=== PATIENT | male | born 1960 | race Caucasian/White ===

== ENCOUNTER 2023-06-06 11:02 | Inpatient (IN) | payer OTHER, SELFPAY ==
--- NOTE | ~2023-06-06 | US_ITS ---
EXAMINATION: US VENOUS ULTRASOUND WITH DOPPLER LOWER EXTREMITY, LEFT CLINICAL INFORMATION: Left leg pain COMPARISON: None available. TECHNIQUE: Ultrasound of the deep veins is performed from the hip to the calf with compression sonography and color and pulse Doppler assessment. Spectral analysis with color-flow imaging is performed. FINDINGS: There is normal venous compression and respiratory variation. The visualized common femoral vein, superficial femoral vein, profunda femoral vein, popliteal vein, and the trifurcation region shows no evidence of deep venous thrombosis. The contralateral common femoral vein demonstrates normal respiratory variation. US/US venous duplex LE LT IMPRESSION: No DVT demonstrated in the left lower extremity.
--- NOTE | ~2023-06-06 | CT_ITS ---
EXAMINATION: CT ABDOMEN AND PELVIS WITH CONTRAST CLINICAL INFORMATION: Large clot burden with question tumor COMPARISON: None available. TECHNIQUE: Multidetector volumetric images were obtained from the superior aspect of the liver through the pubic symphysis following administration 85 mL of Omnipaque 350 intravenous contrast. Sagittal and coronal reformatted images were obtained on the technologist's workstation. Oral contrast: No This CT examination was performed using dose optimization techniques as appropriate, variously including the following: *Automated exposure control *Adjustment of mA and/or kV according to patient size (this includes techniques or standardized protocols for targeted exams where dose is matched to indication/reason for exam; i.e. extremities or head) *Use of iterative reconstruction technique DLP: 588 mGy-cm FINDINGS: LUNG BASES: The visualized lung bases are unremarkable. LIVER, GALLBLADDER, AND BILIARY TREE: The liver is normal in size, shape, and attenuation. No focal hepatic lesion or biliary ductal dilatation is present. The gallbladder is unremarkable with no evidence of radiopaque gallstones, gallbladder wall thickening, or obvious pericholecystic inflammatory changes. PANCREAS: Unremarkable. SPLEEN: Unremarkable. ADRENAL GLANDS: Unremarkable. KIDNEYS AND URETERS: The kidneys are normal in size, shape, and attenuation. Bilateral nephrolithiasis is seen with multiple small stones in each kidney. There is mild hydronephrosis bilaterally with dilatation of both ureters. The bladder is distended and bladder outflow, I suspect is the issue related to the mild hydronephrosis. No perinephric stranding. BLADDER AND PROSTATE: The bladder is quite distended extending out of the pelvis to 7 cm below the umbilicus. A large amount of clot is present in the bladder. The prostate is enlarged. A question TURP defect is seen in the prostate. Seminal vesicles appear normal. GASTROINTESTINAL TRACT: The small and large bowel are unremarkable aside from colonic diverticula without diverticulitis. The appendix is not seen but there is no evidence of appendicitis evidence of appendicitis. ABDOMINAL WALL: No significant hernia is appreciated. LYMPH NODES: No retroperitoneal lymphadenopathy. VASCULAR: Calcific atherosclerotic changes are present in the aorta and iliofemoral vessels. There is no evidence of an abdominal aortic aneurysm. PELVIC VISCERA: An abnormal pelvic mass or free fluid is not seen. OSSEOUS STRUCTURES: Marked degenerative changes seen at L5-S1. No bony destructive lesions. CT/CT abdomen pelvis w IV con IMPRESSION: 1. Large amount of clot in the bladder with distended bladder and mild bilateral hydronephrosis. 2. Bilateral nonobstructing nephrolithiasis. 3. Other incidental findings as described above. Fleischner guidelines were followed.
[2023-06-06 11:16] VITALS: BP 149/57; PULSE 92; RESP 16; TEMP 36.7; O2SAT 96; BMI 25.8
--- NOTE | 2023-06-06 11:17 | ED_ITS ---
HPI - General Adult General Chief complaint: Urogenital-Male Stated complaint: blood in urine Time Seen by Provider: 06/06/23 17:21 Source: patient Mode of arrival: ambulatory History of Present Illness HPI narrative: 62-year-old male with history of muscular dystrophy presents with urinary retention. Patient noted difficulty urinating this morning, this was followed by red colored urine, then progressed to passing large clots. Patient denies preceding abdominal pain, nausea, vomiting or fever. Denies history of kidney stones. Denies trauma to his abdomen. Patient has not had prior episodes of retention. Related Data Allergies Allergy/AdvReac Type Severity Reaction Status Date / Time No Known Allergies Allergy Verified 06/06/23 11:25 Review of Systems 2 Review of Systems: Yes all other systems are reviewed and are negative [facility] Social History Social History Alcohol intake: current Alcohol intake frequency: a few times a month Smoked in Last 30 Days: No Use of substances other than those prescribed or required for medical reasons: No Advance Directives: No Advance Directives Information Provided: Yes Physical Exam ED Vital Signs: Vital Signs - 24 hr 06/06/23 11:16 06/06/23 18:28 06/06/23 18:29 Temperature 98.1 F 96.8 F Pulse Rate 92 82 Respiratory Rate 16 18 16 Blood Pressure 149/57 H 152/65 H Pulse Oximetry 96 97 Oxygen Delivery Method Room Air Room Air BMI result Body Mass Index 25.8 Const Other: Alert well in appearance Orientation/consciousness: patient oriented x3 Eyes Pupils: Equal, round and reactive pupils present Resp Other: Nonlabored respiration Cardio Other: Normal peripheral perfusion Skin General skin exam: no rashes or lesions noted Neuro General: patient oriented x3, no focal motor deficits and CN's II-XI intact bilaterally Cranial nerves: Yes Equal, round and reactive pupils present Extrem Other: Ambulates with a cane, antalgic gait Course Course Course Narrative: This is a rapid medical exam. Deferred additional HPI, ROS, PE to primary provider. 62 yo male with history of DM, muscular dystrophy here with bloody urine with clots since , some difficulty with going, dysuria. On ASA only. Followed by Urology in [facility]. Will obtain labs, UA VSS Reevaluation(s) Reevaluation #1: CT pending but patient accepted for admission to hospitalist service by Dr. Osito. Time: 19:53 Medications Administered Discontinued Medications Generic Name Dose Route Start Last Admin Trade Name Corrina PRN Reason Stop Dose Admin Iohexol 100 ml 06/06/23 18:48 06/06/23 18:48 Iohexol 350 Mg/Ml 100 Ml Infus..Btl IV 06/06/23 18:49 85 ml ONCE ONE Administration Lidocaine HCl 10 ml 06/06/23 19:04 06/06/23 19:20 Lidocaine Hcl 2 % Urojet 10 Ml Jel.Pf.An TOPICAL 06/06/23 19:05 10 ml ONCE ONE Administration Morphine Sulfate 4 mg 06/06/23 17:40 06/06/23 18:28 Morphine Sulfate 4 Mg/Ml Cartridge IVPUSH 06/06/23 17:41 4 mg ONCE ONE Administration Protocol Medical Decision Making Medical Decision Making MDM Narrative: 62-year-old male with history of muscular dystrophy presents with urinary retention. Patient noted difficulty urinating this morning, this was followed by red colored urine, then progressed to passing large clots. Patient denies preceding abdominal pain, nausea, vomiting or fever. Denies history of kidney stones. Denies trauma to his abdomen. Patient has not had prior episodes of retention. No relevant chronic issues History: Per patient I have considered the following differential diagnoses: Renal colic, urosepsis, UTI, bladder cancer Plan: Patient is in fact retaining urine per my bedside ultrasound. I can also see a significant clot burden. I am ordering CBI, and a CT scan. Screening labs are in process, including a urinalysis, his urine is not infected. His symptoms are not consistent with renal colic, I am most concerned that he has a mass in the bladder causing his symptoms. He likely require cystoscopy. I have independently reviewed the following tests: Labs: No leukocytosis, not anemic, no electrolyte abnormality, urine reveals hematuria, but no infection CT abdomen and pelvis: Pending at the time of sign-out Differential Diagnosis Renal colic, urosepsis, UTI, bladder cancer Admission/Observation Discussed with the patient that he will likely be admitted, the he require CBI, the ultimately he will require cystoscopy via Urology. Patient verbalizes understanding. Lab Data 06/06/23 11:42 06/06/23 11:42 Labs: Lab Results 06/06/23 06/06/23 Range/Units 11:42 11:43 WBC 8.0 (4.8-10.8) X10*3/uL RBC 4.12 L (4.60-5.80) X10*6/uL Hgb 12.2 L (14.0-18.0) g/dl Hct 37.6 L (42.0-52.0) % MCV 91.3 (80.0-98.0) fL MCH 29.6 (27.0-33.0) pg MCHC 32.4 (31.0-36.0) g/dl RDW 13.6 (11.0-16.0) % Plt Count 373 (160-400) X10*3/uL MPV 9.1 L (9.4-12.4) fL Immature Gran % (Auto) 0.3 (0.0-0.4) % Neut % (Auto) 60.5 (45-73) % Lymph % (Auto) 24.2 (20-40) % Wilkes % (Auto) 12.2 H (2-11) % Eos % (Auto) 1.3 (0-4) % Baso % (Auto) 1.5 (0-2) % Lymph # (Auto) 1.9 (1.2-4.9) X10*3/uL [place] # (Auto) 1.0 (0.1-1.2) X10*3/uL Eos # (Auto) 0.1 (0.0-0.4) X10*3/uL Baso # (Auto) 0.1 (0.0-0.2) X10*3/uL Abs Immat Gran (auto) 0.02 (0.00-0.03) X10*3/uL Absolute Neuts (auto) 4.8 (2.0-8.3) x10*3/uL Absolute Nucleated RBC 0.000 (0.0-0.012) X10*3/uL Nucleated RBC % (auto) 0.0 (0.0-0.2) /100WBC PT 12.2 (11.1-13.3) SEC INR 1.0 (0.9-1.1) Sodium 139 (135-145) mmol/L Potassium 4.8 (3.3-5.1) mmol/L Chloride 103 (96-108) mmol/L Carbon Dioxide 26 (22-29) mmol/L Anion Gap 15 (12-20) BUN 29 H (9-16) mg/dL Creatinine 0.77 (0.5-1.4) mg/dL Estim Creat Clear Calc 100.0 Estimated GFR > 60 Random Glucose 168 H (60-115) mg/dL Calcium 9.7 (8.4-10.2) mg/dL Total Bilirubin 0.5 (0.0-1.0) mg/dL Direct Bilirubin 0.3 (0.0-0.5) mg/dL AST 27 (5-37) U/L ALT 30 (0-40) U/L Alkaline Phosphatase 83 (39-117) U/L Total Protein 7.6 (6.5-8.0) g/dL Albumin 4.2 (3.5-5.0) g/dL Urine Color RED Urine Appearance Turbid Urine pH 7.0 (5.0-9.0) Ur Specific [place] 1.015 (1.005-1.025) Urine Protein See Note (Neg-Trace) mg/dL Urine Glucose (UA) See Note (Negative) mg/dL Urine Ketones See Note (Negative) mg/dL Urine Blood Large (3+) H (Negative) Urine Nitrite See Note (Negative) Ur Leukocyte Esterase See Note (Negative) Urine RBC >20 H (0-2) /HPF Urine WBC 0-5 (0-5) /HPF Ur Squamous Epith Cells 0-2 (0-2) /HPF Urine Bacteria None Seen (None Seen) Hyaline Casts 0-2 (0-2) /LPF Discharge Plan Discharge Patient Disposition: Admitted As Inpatient Print Language: Dominican
[2023-06-06 11:53] LABS: MANUAL DIFF FLAG NO
[2023-06-06 11:55] LABS: Basophils Absolute Auto 0.1 X10*3/uL (0.0-0.2); Basophils Percent Auto 1.5 % (0-2); Eosinophils Absolute Auto 0.1 X10*3/uL (0.0-0.4); Eosinophils Percent Auto 1.3 % (0-4); Hematocrit 37.6 % (42.0-52.0); Hemoglobin 12.2 g/dl (14.0-18.0); Imm Gran Abs Auto 0.02 X10*3/uL (0.00-0.03); Imm Gran Pct Auto 0.3 % (0.0-0.4); Lymphocytes Absolute Auto 1.9 X10*3/uL (1.2-4.9); Lymphocytes Percent Auto 24.2 % (20-40); Mean Corpuscular HGB Conc 32.4 g/dl (31.0-36.0); Mean Corpuscular Hemoglobin 29.6 pg (27.0-33.0); Mean Corpuscular Volume 91.3 fL (80.0-98.0); Mean Platelet Volume 9.1 fL (9.4-12.4); Monocytes Percent Auto 12.2 % (2-11); Neutrophils Absolute Auto 4.8 x10*3/uL (2.0-8.3); Neutrophils Percent Auto 60.5 % (45-73); Platelet Count 373 X10*3/uL (160-400); Red Blood Count 4.12 X10*6/uL (4.60-5.80); Red Cell Distribution Width 13.6 % (11.0-16.0)
[2023-06-06 11:56] LABS: Appearance Urine Turbid; Color Urine RED; Specific Gravity - Urine 1.015 (1.005-1.025); UMIC TRIGGER UACC YES; Urine Blood Large (3+) (Negative)
[2023-06-06 12:04] LABS: Prothrombin Time 12.2 SEC (11.1-13.3)
[2023-06-06 12:08] LABS: Alanine Aminotransferase 30 U/L (0-40); Albumin Level 4.2 g/dL (3.5-5.0); Alkaline Phosphatase 83 U/L (39-117); Anion Gap 15 (12-20); Aspartate Amino Transferase 27 U/L (5-37); Bilirubin Direct 0.3 mg/dL (0.0-0.5); Bilirubin Total 0.5 mg/dL (0.0-1.0); Blood Urea Nitrogen 29 mg/dL (9-16); Calcium 9.7 mg/dL (8.4-10.2); Carbon Dioxide 26 mmol/L (22-29); Chloride 103 mmol/L (96-108); Estimated Glomerular Filt Rate > 60; Glucose Random 168 mg/dL (60-115); Potassium 4.8 mmol/L (3.3-5.1); Sodium 139 mmol/L (135-145); Total Protein 7.6 g/dL (6.5-8.0)
[2023-06-06 12:09] LABS: Bacteria Urine None Seen (None Seen); Hyaline Casts Urine 0-2 /LPF (0-2); RBC Urine >20 /HPF (0-2); Squamous Epithelial Cell Urine 0-2 /HPF (0-2); WBC Urine 0-5 /HPF (0-5)
[2023-06-06 18:28] VITALS: RESP 18
[2023-06-06] MEDS: Morphine Sulfate 4 MG/ML CARTRIDGE IVPUSH (18:28)
[2023-06-06 18:29] VITALS: BP 152/65; PULSE 82; RESP 16; TEMP 36; O2SAT 97
[2023-06-06] MEDS: iohexoL 350 MG/ML 100 ML INFUS..BTL IV (18:48)
[2023-06-06] MEDS: Lidocaine HCl 2 % Urojet 10 ML JEL.PF.APP TOPICAL (19:20)
--- NOTE | 2023-06-06 20:28 | PM.IMHP ---
History of Present Illness Date of Service: 06/06/23 Attending physician on admission: Gume Mcneill Chief Complaint: hematuria 62-year-old male with history of hypertension, hyperlipidemia, peripheral artery disease on dual antiplatelet therapy, type 1 diabetes, CKD stage 2, facial/scapular muscular dystrophy presented to the ED earlier today for evaluation of hematuria. He reports for the past 4 days has been experiencing ?cranberry juice? colored urine that had initially tapered off on Tuesday but then recurred Tuesday morning. This morning reports large clots of blood while urinating with limited urine output. He has reported suprapubic pressure, dysuria but denies any nausea, vomiting, flank pain. He denies history of similar symptoms. He has been compliant with both aspirin and Plavix but is not on any other anticoagulation. On arrival, vital signs stable. Hematology studies significant for a mild normocytic anemia with H/H 12.2/37.6%. Renal function normal, electrolyte levels normal. Urinalysis significant for 3+ blood, otherwise unremarkable. CT abdomen/pelvis pending. In the ED, placed on CBI now with fruit punch colored output. Ouput with catheter placement, 1L. Also given iv morphine for pain. Patient will be admitted for further management of gross hematuria. He has a very remote cigarette smoker with 5 pack-year history. Review of Systems Review of Systems: General: No fevers, malaise, unintentional weight loss HEENT: No blurred vision, diplopia. No sore throat, nasal congestion, rhinorrhea, sinus pain, ear pain Cardiovascular: No chest pain, palpitations, or leg edema Respiratory: No shortness of breath, wheezing, cough GI: No abdominal pain, nausea, vomiting, diarrhea, constipation, melena, hematochezia : +hematuria, +decreased urinary output, +dysuria. No increased urinary frequency MSK: No myalgia, back pain Neuro: No headaches, weakness, paresthesias Skin: No rashes or lesions [facility] Medical History Peripheral arterial disease Peripheral neuropathy Type 1 diabetes 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 Hypertension Muscular dystrophy Social History Alcohol intake: current Alcohol intake frequency: a few times a month Smoked in Last 30 Days: No Use of substances other than those prescribed or required for medical reasons: No Advance Directives: No Advance Directives Information Provided: Yes Meds Allergies Allergy/AdvReac Type Severity Reaction Status Date / Time No Known Allergies Allergy Verified 06/06/23 11:25 Active Medications: Current Medications Acetaminophen (Acetaminophen 325 Mg Tablet) 650 mg PO Q6H PRN PRN Reason: Pain, Mild (Pain Scale 1-3) Glucose (Glucose Gel 15 Gm Gel..Gram.) 15 gm PO Q15M PRN; Protocol PRN Reason: per Hypoglycemia Standing Ord. Dextrose (D10) 250 mls @ 750 mls/hr IV Q15M PRN; Protocol PRN Reason: per Hypoglycemia Standing Ord. Insulin Glargine (Insulin Glargine,Hum.Rec.Anlog 100 Unit/Ml 10 Ml Vial) 15 unit SUBCUT BID SANDY Insulin Human Lispro (Insulin Lispro 100 Unit/Ml 3 Ml Vial) 0 unit SUBCUT QIDACHS SANDY; Protocol Ondansetron HCl (Ondansetron Hcl 4 Mg/2 Ml Vial) 4 mg IVPUSH Q8H PRN PRN Reason: Nausea and Vomiting Senna (Sennosides 8.6 Mg Tablet) 17.2 mg PO BEDTIME PRN PRN Reason: Constipation Sodium Chloride (0.9 % Sodium Chloride Flush 3 Ml Syringe) 3 ml IVFLUSH [place] Home Medications ?Medication ?Instructions ?Recorded ?Confirmed ?Last Taken ?Type amlodipine 10 mg tablet 10 mg PO DAILY 06/06/23 06/06/23 06/06/23 History ammonium lactate 12 % topical cream 1 appl topical BID PRN Dry Skin 06/06/23 06/06/23 Unknown History aspirin 81 mg tablet,delayed 81 mg PO DAILY 06/06/23 06/06/23 06/06/23 History release atorvastatin 20 mg tablet 20 mg PO DAILY 06/06/23 06/06/23 06/06/23 History clopidogrel 75 mg tablet 75 mg PO DAILY 06/06/23 06/06/23 06/06/23 History dorzolamide 22.3 mg-timolol 6.8 1 drp ophthalmic (eye) BID 06/06/23 06/06/23 06/06/23 History mg/mL eye drops gabapentin 800 mg tablet 800 mg PO QID 06/06/23 06/06/23 06/06/23 History insulin glargine 100 unit/mL (3 19 unit subcut DAILY 06/06/23 06/06/23 06/06/23 History mL) subcutaneous pen (Lantus Solostar U-100 Insulin) insulin glargine 100 unit/mL (3 22 unit subcut BEDTIME 06/06/23 06/06/23 06/05/23 History mL) subcutaneous pen (Lantus Solostar U-100 Insulin) insulin lispro 100 unit/mL 0 sliding scale dose subcut QIDACHS 06/06/23 06/06/23 06/06/23 History subcutaneous pen latanoprost 0.005 % eye drops 1 drp ophthalmic (eye) BEDTIME 06/06/23 06/06/23 06/05/23 History losartan 50 mg tablet 50 mg PO DAILY 06/06/23 06/06/23 06/06/23 History sildenafil 100 mg tablet 50 - 100 mg PO DAILY PRN Sexual 06/06/23 06/06/23 Unknown History Activity urea 20 % topical cream 1 appl topical DAILY 06/06/23 06/06/23 06/06/23 History Physical Exam Vital Signs and Narrative: Vital Signs: Last Vital Signs Temp 96.8 F 06/06/23 18:29 Pulse 82 06/06/23 18:29 Resp 16 06/06/23 18:29 BP 152/65 H 06/06/23 18:29 Pulse Ox 97 06/06/23 18:29 O2 Del Method Room Air 06/06/23 18:29 BMI result Body Mass Index 25.8 Constitutional - Awake and Alert, No apparent distress Eyes - PERRLA, EOMI Cardiovascular - S1S2, RRR, No edema Respiratory - Normal lung expansion, Normal respiratory effort, No respiratory distress, CTA bilaterally Gastrointestinal - NT / ND; +BS; No rebound or guarding - [address] way [address] with fruit punch colored output Extremities - no calf tenderness bilaterally, no swelling Skin - Warm/Dry Neurological - Alert & oriented x3 Psychological - Appropriate affect Results Labs 06/06/23 11:42 06/06/23 11:42 Labs: Laboratory Results - last 24 hr 06/06/23 06/06/23 11:42 11:43 MCV 91.3 MCH 29.6 MCHC 32.4 RDW 13.6 Plt Count 373 MPV 9.1 L Immature Gran % (Auto) 0.3 Neut % (Auto) 60.5 Lymph % (Auto) 24.2 [place] % (Auto) 12.2 H Eos % (Auto) 1.3 Baso % (Auto) 1.5 Lymph # (Auto) 1.9 [place] # (Auto) 1.0 Eos # (Auto) 0.1 Baso # (Auto) 0.1 Abs Immat Gran (auto) 0.02 Absolute Neuts (auto) 4.8 Absolute Nucleated RBC 0.000 Nucleated RBC % (auto) 0.0 PT 12.2 INR 1.0 Anion Gap 15 Estim Creat Clear Calc 100.0 Estimated GFR > 60 Random Glucose 168 H Calcium 9.7 Total Bilirubin 0.5 Direct Bilirubin 0.3 AST 27 ALT 30 Alkaline Phosphatase 83 Total Protein 7.6 Albumin 4.2 Urine Color RED Urine Appearance Turbid Urine pH 7.0 Ur Specific [place] 1.015 Urine Protein See Note Urine Glucose (UA) See Note Urine Ketones See Note Urine Blood Large (3+) H Urine Nitrite See Note Ur Leukocyte Esterase See Note Urine RBC >20 H Urine WBC 0-5 Ur Squamous Epith Cells 0-2 Urine Bacteria None Seen Hyaline Casts 0-2 Assessment and Plan (1) Hematuria: Status: Acute Plan 62-year-old male with history of hypertension, hyperlipidemia, peripheral artery disease on dual antiplatelet therapy, type 1 diabetes, CKD stage 2, facial/scapular muscular dystrophy admitted for further managment of gross hematuria #Gross hematuria -etiology unclear -ct abd pelvis pending -continue cbi -no significant anemia requiring transfusion -urology consult -follow h/h -hold dapt #Acute urinary retention -catheter placement drained 1 L urine -CT abdomen/pelvis pending -renal function baseline -urology consult -monitor I&O # normocytic anemia, unspecified chronicity -H/H above transfusion threshold -monitor H/H # insulin-dependent type 1 diabetes without hyperglycemia -POC glucose, diabetic diet -dose adjusted basal insulin -lispro and sliding scale # hypertension -continue amlodipine, losartan # PAD -hold aspirin, Plavix as above, continue statin # diabetic peripheral neuropathy -continue gabapentin # CKD stage 2 -renal function baseline DVT prophylaxis-Scps Full code Patient requires inpatient stay at least 2 midnights for management of gross hematuria with clots requiring continuous bladder irrigation, close monitoring of blood counts and expert consultation with probable cystoscopy to determine etiology of bleeding Quality Stroke Does the patient have a stroke diagnosis?: No VTE Prior VTE?: No VTE Risk Level:: Medical - moderate - high VTE Device Contraindication: N/A - Device Ordered VTE Drug Contraindication: Treatment Not Indicated
--- NOTE | 2023-06-06 20:33 | PHA.MEDREC ---
Pharmacy Consult ? Medication Reconciliation Pharmacy has completed the medication reconciliation. Patient's has list from provider's office. Patient and reported amlodipine and losartan dose were adjusted however they never made the adjustments yet. Still taking amlodpine 10 mg and losartan 50 mg instead of amlodipine 5 mg and losartan 100 mg. Patient using rapid acting insulin based on decom. Mariel Mcknight, PharmD
[2023-06-06 21:58] LABS: Glucose, Whole Blood 140 mg/dL (60-115)
[2023-06-06] MEDS: Gabapentin 400 MG CAPSULE 800 MG PO (22:04)
[2023-06-06] MEDS: Insulin Glargine,Hum.rec.anlog 100 UNIT/ML 10 ML VIAL 16 UNIT SUBCUT (22:04)
[2023-06-06] MEDS: Latanoprost 0.005 % Ophth Sol 2.5 ML DROPS 1 DROP EYE-BOTH (22:43)
[2023-06-06] MEDS: Dorzolamide/Timolo 2.23%/0.68% 10 ML DRBTL 1 DROP EYE-BOTH (22:43)
--- NOTE | 2023-06-06 23:11 | PC.NURSE ---
Pt with reports of discomfort and catheter not draining. Pts catheter irrigated x2. large amount of clots noted
[2023-06-06 23:29] VITALS: BP 121/46; PULSE 68; RESP 14; TEMP 36.8; O2SAT 93
--- NOTE | 2023-06-06 23:35 | PC.NURSE ---
pt dorzolamide/timolol and latanoprost eyedrops placed in patient specific bin in pyxis.
[2023-06-06] MEDS: 0.9 % Sodium Chloride Flush 3 ML SYRINGE IVFLUSH (23:39)
[2023-06-07] VITALS: BP 161/72; PULSE 66; RESP 18; TEMP 36.1; O2SAT 99
--- NOTE | 2023-06-07 01:13 | PC.NURSE ---
Pt manually irrigated, small amount of clot recovered. drainage bag emptied.
--- NOTE | 2023-06-07 02:14 | HO.SKINPHOTO ---
Location: left lateral ankle Category:ulceration Stage: Length: Width: Depth: cm Location: Category: Stage: Length: Width: Depth: cm Location: Category: Stage: Length: Width: Depth: cm Location: Category: Stage: Length: Width: Depth: cm Location: Category: Stage: Length: Width: Depth: cm Location: Category: Stage: Length: Width: Depth: cm
--- NOTE | 2023-06-07 02:15 | HO.SKINPHOTO ---
Location:left great toe Category:ingrown toe-nail repair site Stage: Length: Width: Depth: cm Location: Category: Stage: Length: Width: Depth: cm Location: Category: Stage: Length: Width: Depth: cm Location: Category: Stage: Length: Width: Depth: cm Location: Category: Stage: Length: Width: Depth: cm Location: Category: Stage: Length: Width: Depth: cm
[2023-06-07] MEDS: Morphine Sulfate 4 MG/ML CARTRIDGE IVPUSH (04:37)
[2023-06-07 05:53] LABS: MANUAL DIFF FLAG NO
[2023-06-07 05:59] LABS: Basophils Absolute Auto 0.1 X10*3/uL (0.0-0.2); Eosinophils Absolute Auto 0.2 X10*3/uL (0.0-0.4); Eosinophils Percent Auto 1.5 % (0-4); Hemoglobin 10.4 g/dl (14.0-18.0); Imm Gran Abs Auto 0.06 X10*3/uL (0.00-0.03); Imm Gran Pct Auto 0.5 % (0.0-0.4); Lymphocytes Percent Auto 7.9 % (20-40); Mean Corpuscular HGB Conc 32.5 g/dl (31.0-36.0); Mean Corpuscular Volume 92.2 fL (80.0-98.0); Mean Platelet Volume 9.5 fL (9.4-12.4); Monocytes Absolute Auto 1.1 X10*3/uL (0.1-1.2); Monocytes Percent Auto 8.1 % (2-11); Neutrophils Absolute Auto 10.6 x10*3/uL (2.0-8.3); Platelet Count 334 X10*3/uL (160-400); Red Blood Count 3.47 X10*6/uL (4.60-5.80); Red Cell Distribution Width 13.9 % (11.0-16.0); White Blood Count 13.1 X10*3/uL (4.8-10.8)
[2023-06-07] MEDS: ondansetron HCL 4 MG/2 ML VIAL IVPUSH (06:08)
[2023-06-07 06:27] LABS: Anion Gap 13 (12-20); Blood Urea Nitrogen 28 mg/dL (9-16); Calcium 9.1 mg/dL (8.4-10.2); Carbon Dioxide 26 mmol/L (22-29); Chloride 108 mmol/L (96-108); Creatinine Clr Calc Pharmacy 102.7; Estimated Glomerular Filt Rate > 60; Glucose Random 154 mg/dL (60-115); Potassium 4.8 mmol/L (3.3-5.1); Sodium 142 mmol/L (135-145)
[2023-06-07 06:50] VITALS: BP 125/60; PULSE 73; RESP 16; TEMP 36; O2SAT 99
[2023-06-07 07:01] LABS: Glucose, Whole Blood 133 mg/dL (60-115)
[2023-06-07 08:13] VITALS: BP 125/60
[2023-06-07] MEDS: Insulin Glargine,Hum.rec.anlog 100 UNIT/ML 10 ML VIAL 15 UNIT SUBCUT (08:13)
[2023-06-07] MEDS: Atorvastatin Calcium 20 MG TABLET PO (08:13)
[2023-06-07] MEDS: amLODIPine Besylate 10 MG TABLET PO (08:13)
[2023-06-07] MEDS: Losartan Potassium 50 MG TABLET PO (08:13)
[2023-06-07] MEDS: Gabapentin 400 MG CAPSULE 800 MG PO ×4 (08:13→20:39)
[2023-06-07] MEDS: 0.9 % Sodium Chloride Flush 3 ML SYRINGE IVFLUSH ×3 (08:23→23:32)
--- NOTE | 2023-06-07 09:15 | P.CNUR_ITS ---
History of Present Illness Consult details Consult date: 06/07/23 Narrative: CC: Gross Hematuria 62-year-old male Presents to hospital with 2 day history of progressively worsening gross hematuria Insulin-dependent diabetic Sullivan catheter placed for bladder irrigation Admitting medications include clopidogrel and aspirin No prior history of smoking and were placed chemical exposures Recommend continued CBI for 72 hours given clopidogrel usage. Hold clopidogrel Will need cystoscopy as outpatient Hematuria high probability course by dual antiplatelet therapy Review of Systems 2 Constitutional: Constitutional: Reports as per HPI and Reports no additional constitutional complaints Cardiovascular: Cardiovascular: Reports as per HPI and Reports no additional cardiovascular complaints Respiratory: Respiratory: Reports as per HPI and Reports no additional respiratory complaints Gastrointestinal: Gastrointestinal: Reports as per HPI and Reports no additional gastrointestinal complaints Genitourinary: Genitourinary: Reports as per HPI Musculoskeletal: Musculoskeletal: Reports no additional musculoskeletal complaints and Reports as per HPI Neurologic: Reports system reviewed and no additional complaints, except as documented and Reports as per HPI PMFSH Past Medical History Medical History Peripheral arterial disease Peripheral neuropathy Type 1 diabetes 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 Hypertension Muscular dystrophy Social History Social History Household Members: Spouse Housing: House Do you presently have visiting nurse or other home services: No Alcohol intake: current Alcohol intake frequency: a few times a month Patient Tobacco Use Status: Former Tobacco user service: No Meds Allergies Allergy/AdvReac Type Severity Reaction Status Date / Time No Known Allergies Allergy Verified 06/06/23 11:25 Active Medications: Current Medications Acetaminophen (Acetaminophen 325 Mg Tablet) 650 mg PO Q6H PRN PRN Reason: Pain, Mild (Pain Scale 1-3) Amlodipine Besylate (Amlodipine Besylate 10 Mg Tablet) 10 mg PO DAILY [facility]; Protocol Last Admin: 06/07/23 08:13 Dose: 10 mg Atorvastatin Calcium (Atorvastatin Calcium 20 Mg Tablet) 20 mg PO DAILY [facility] Last Admin: 06/07/23 08:13 Dose: 20 mg Dorzolamide/Timolol (Dorzolamide/Timolo 2.23%/0.68% 10 Ml Drbtl) 1 drop EYE- BOTH BID [facility] Last Admin: 06/06/23 22:43 Dose: 1 drop Gabapentin (Gabapentin 400 Mg Capsule) 800 mg PO QID [facility] Last Admin: 06/07/23 08:13 Dose: 800 mg Glucose (Glucose Gel 15 Gm Gel..Gram.) 15 gm PO Q15M PRN; Protocol PRN Reason: per Hypoglycemia Standing Ord. Dextrose (D10) 250 mls @ 750 mls/hr IV Q15M PRN; Protocol PRN Reason: per Hypoglycemia Standing Ord. Insulin Glargine (Insulin Glargine,Hum.Rec.Anlog 100 Unit/Ml 10 Ml Vial) 15 unit SUBCUT DAILY [facility] Last Admin: 06/07/23 08:13 Dose: 15 unit Insulin Glargine (Insulin Glargine,Hum.Rec.Anlog 100 Unit/Ml 10 Ml Vial) 16 unit SUBCUT BEDTIME [facility] Last Admin: 06/06/23 22:04 Dose: 16 unit Insulin Human Lispro (Insulin Lispro 100 Unit/Ml 3 Ml Vial) 0 unit SUBCUT QIDACHS [facility]; Protocol Last Admin: 06/07/23 07:13 Dose: Not Given Lactic Acid (Ammonium Lactate 12 % Cream 140 Gm Tube) 1 appl TOPICAL BID PRN; Protocol PRN Reason: Dry Skin Latanoprost (Latanoprost 0.005 % Ophth Berenice 2.5 Ml Drops) 1 drop EYE-BOTH BEDTIME [facility] Last Admin: 06/06/23 22:43 Dose: 1 drop Losartan Potassium (Losartan Potassium 50 Mg Tablet) 50 mg PO DAILY [facility]; Protocol Last Admin: 06/07/23 08:13 Dose: 50 mg Ondansetron HCl (Ondansetron Hcl 4 Mg/2 Ml Vial) 4 mg IVPUSH Q8H PRN PRN Reason: Nausea and Vomiting Last Admin: 06/07/23 06:08 Dose: 4 mg Senna (Sennosides 8.6 Mg Tablet) 17.2 mg PO BEDTIME PRN PRN Reason: Constipation Sodium Chloride (0.9 % Sodium Chloride Flush 3 Ml Syringe) 3 ml IVFLUSH QSHICHI [facility] Last Admin: 06/07/23 08:23 Dose: 3 ml Home Medications ?Medication ?Instructions ?Recorded ?Confirmed ?Last Taken ?Type amlodipine 10 mg tablet 10 mg PO DAILY 06/06/23 06/06/23 06/06/23 History ammonium lactate 12 % topical cream 1 appl topical BID PRN Dry Skin 06/06/23 06/06/23 Unknown History aspirin 81 mg tablet,delayed 81 mg PO DAILY 06/06/23 06/06/23 06/06/23 History release atorvastatin 20 mg tablet 20 mg PO DAILY 06/06/23 06/06/23 06/06/23 History clopidogrel 75 mg tablet 75 mg PO DAILY 06/06/23 06/06/23 06/06/23 History dorzolamide 22.3 mg-timolol 6.8 1 drp ophthalmic (eye) BID 06/06/23 06/06/23 06/06/23 History mg/mL eye drops gabapentin 800 mg tablet 800 mg PO QID 06/06/23 06/06/23 06/06/23 History insulin glargine 100 unit/mL (3 19 unit subcut DAILY 06/06/23 06/06/23 06/06/23 History mL) subcutaneous pen (Lantus Solostar U-100 Insulin) insulin glargine 100 unit/mL (3 22 unit subcut BEDTIME 06/06/23 06/06/23 06/05/23 History mL) subcutaneous pen (Lantus Solostar U-100 Insulin) insulin lispro 100 unit/mL 0 sliding scale dose subcut QIDACHS 06/06/23 06/06/23 06/06/23 History subcutaneous pen latanoprost 0.005 % eye drops 1 drp ophthalmic (eye) BEDTIME 06/06/23 06/06/23 06/05/23 History losartan 50 mg tablet 50 mg PO DAILY 06/06/23 06/06/23 06/06/23 History sildenafil 100 mg tablet 50 - 100 mg PO DAILY PRN Sexual 06/06/23 06/06/23 Unknown History Activity urea 20 % topical cream 1 appl topical DAILY 06/06/23 06/06/23 06/06/23 History Physical Exam 2 Vital Signs: Vital Signs: Last Vital Signs Temp 96.8 F 06/07/23 06:50 Pulse 73 06/07/23 06:50 Resp 16 06/07/23 06:50 BP 125/60 06/07/23 08:13 Pulse Ox 99 06/07/23 06:50 O2 Del Method Room Air 06/07/23 06:50 BMI result Body Mass Index 25.8 Const: General: cooperative, healthy appearing, comfortable and no acute distress Orientation/consciousness: patient oriented x3 HEENT: Face and sinus: Yes normal facial exam Mouth: moist mucous membranes Neck: Neck: Yes normal visual inspection, Yes full ROM and Yes trachea midline Chest: Chest palpation & inspection: normal inspection of the chest Resp: Effort & Inspection: normal respiratory effort, able to speak in complete sentences and no respiratory distress GI: Inspection: Yes normal to inspection Back/Spine/Pelvis: Cervical Spine: normal cervical lordosis Thoracic/Lumbar Spine: thoracic and lumbar spine normal to inspection Skin: General skin exam: no rashes or lesions noted Neuro: General: patient oriented x3, tone normal and moves all extremities Extrem: General: Yes normal to inspection and Yes capillary refill normal Results Labs 06/09/23 05:50 06/08/23 05:52 Labs: Abnormal lab results 06/06/23 06/06/23 06/06/23 Range/Units 11:42 11:43 21:53 WBC (4.8-10.8) X10*3/uL RBC 4.12 L (4.60-5.80) X10*6/uL Hgb 12.2 L (14.0-18.0) g/dl Hct 37.6 L (42.0-52.0) % MPV 9.1 L (9.4-12.4) fL Immature Gran % (Auto) (0.0-0.4) % Neut % (Auto) (45-73) % Lymph % (Auto) (20-40) % [place] % (Auto) 12.2 H (2-11) % Lymph # (Auto) (1.2-4.9) X10*3/uL Abs Immat Gran (auto) (0.00-0.03) X10*3/uL Absolute Neuts (auto) (2.0-8.3) x10*3/uL BUN 29 H (9-16) mg/dL POC Glucose 140 H (60-115) mg/dL Random Glucose 168 H (60-115) mg/dL Urine Blood Large (3+) H (Negative) Urine RBC >20 H (0-2) /HPF 06/07/23 06/07/23 Range/Units 05:37 06:49 WBC 13.1 H (4.8-10.8) X10*3/uL RBC 3.47 L (4.60-5.80) X10*6/uL Hgb 10.4 L (14.0-18.0) g/dl Hct 32.0 L (42.0-52.0) % MPV (9.4-12.4) fL Immature Gran % (Auto) 0.5 H (0.0-0.4) % Neut % (Auto) 81.0 H (45-73) % Lymph % (Auto) 7.9 L (20-40) % [place] % (Auto) (2-11) % Lymph # (Auto) 1.0 L (1.2-4.9) X10*3/uL Abs Immat Gran (auto) 0.06 H (0.00-0.03) X10*3/uL Absolute Neuts (auto) 10.6 H (2.0-8.3) x10*3/uL BUN 28 H (9-16) mg/dL POC Glucose 133 H (60-115) mg/dL Random Glucose 154 H (60-115) mg/dL Urine Blood (Negative) Urine RBC (0-2) /HPF Short CBC 06/06/23 06/07/23 Range/Units 11:42 05:37 WBC 8.0 13.1 H (4.8-10.8) X10*3/uL Hgb 12.2 L 10.4 L (14.0-18.0) g/dl Hct 37.6 L 32.0 L (42.0-52.0) % Plt Count 373 334 (160-400) X10*3/uL BMP 06/06/23 06/07/23 11:42 05:37 Sodium 139 142 Potassium 4.8 4.8 Chloride 103 108 Carbon Dioxide 26 26 BUN 29 H 28 H Creatinine 0.77 0.75 Calcium 9.7 9.1 D Liver Function 06/06/23 Range/Units 11:42 Total Bilirubin 0.5 (0.0-1.0) mg/dL Direct Bilirubin 0.3 (0.0-0.5) mg/dL AST 27 (5-37) U/L ALT 30 (0-40) U/L Alkaline Phosphatase 83 (39-117) U/L Albumin 4.2 (3.5-5.0) g/dL Urine 06/06/23 Range/Units 11:43 Urine Color RED Urine Appearance Turbid Urine pH 7.0 (5.0-9.0) Ur Specific Jackson 1.015 (1.005-1.025) Urine Protein See Note (Neg-Trace) mg/dL Urine Glucose (UA) See Note (Negative) mg/dL All other labs normal. Assessment and Plan (1) Hematuria: Status: Acute Plan Plan for outpatient cystoscopy Procedures Date of Service Date of Service: 06/09/23
--- NOTE | 2023-06-07 09:30 | P.PNIM_ITS ---
Subjective Subjective Date of Service: 06/07/23 Interval History: Continues to have hematuria. Patient is on CBI. Complaining of left leg discomfort Physical Exam 2 Vital Signs: Vital Signs: Last Vital Signs Temp 96.8 F 06/07/23 06:50 Pulse 73 06/07/23 06:50 Resp 16 06/07/23 06:50 BP 125/60 06/07/23 08:13 Pulse Ox 99 06/07/23 06:50 O2 Del Method Room Air 06/07/23 06:50 BMI result Body Mass Index 25.8 Constitutional - Awake and Alert, No apparent distress Eyes - PERRLA, EOMI Cardiovascular - S1S2, RRR, No edema Respiratory - Normal lung expansion, Normal respiratory effort, No respiratory distress, CTA bilaterally Gastrointestinal - NT / ND; +BS; No rebound or guarding - [address] way [address] with fruit punch colored output Extremities - no calf tenderness bilaterally, no swelling Skin - Warm/Dry Neurological - Alert & oriented x3 Psychological - Appropriate affect Objective Data Active Medications Acetaminophen (Acetaminophen 325 Mg Tablet) 650 mg PO Q6H PRN PRN Reason: Pain, Mild (Pain Scale 1-3) Amlodipine Besylate (Amlodipine Besylate 10 Mg Tablet) 10 mg PO DAILY [facility]; Protocol Last Admin: 06/07/23 08:13 Dose: 10 mg Documented By: NAKUL Atorvastatin Calcium (Atorvastatin Calcium 20 Mg Tablet) 20 mg PO DAILY [facility] Last Admin: 06/07/23 08:13 Dose: 20 mg Documented By: NAKUL Dorzolamide/Timolol (Dorzolamide/Timolo 2.23%/0.68% 10 Ml Drbtl) 1 drop EYE- BOTH BID [facility] Last Admin: 06/06/23 22:43 Dose: 1 drop Documented By: MORE Gabapentin (Gabapentin 400 Mg Capsule) 800 mg PO QID [facility] Last Admin: 06/07/23 08:13 Dose: 800 mg Documented By: NAKUL Glucose (Glucose Gel 15 Gm Gel..Gram.) 15 gm PO Q15M PRN; Protocol PRN Reason: per Hypoglycemia Standing Ord. Dextrose (D10) 250 mls @ 750 mls/hr IV Q15M PRN; Protocol PRN Reason: per Hypoglycemia Standing Ord. Insulin Glargine (Insulin Glargine,Hum.Rec.Anlog 100 Unit/Ml 10 Ml Vial) 15 unit SUBCUT DAILY [facility] Last Admin: 06/07/23 08:13 Dose: 15 unit Documented By: NAKUL Insulin Glargine (Insulin Glargine,Hum.Rec.Anlog 100 Unit/Ml 10 Ml Vial) 16 unit SUBCUT BEDTIME [facility] Last Admin: 06/06/23 22:04 Dose: 16 unit Documented By: MORE Insulin Human Lispro (Insulin Lispro 100 Unit/Ml 3 Ml Vial) 0 unit SUBCUT QIDACHS [facility]; Protocol Last Admin: 06/07/23 07:13 Dose: Not Given Documented By: NAKUL Non-Admin Reason: No Insulin Coverage Lactic Acid (Ammonium Lactate 12 % Cream 140 Gm Tube) 1 appl TOPICAL BID PRN; Protocol PRN Reason: Dry Skin Latanoprost (Latanoprost 0.005 % Ophth Berenice 2.5 Ml Drops) 1 drop EYE-BOTH BEDTIME [facility] Last Admin: 06/06/23 22:43 Dose: 1 drop Documented By: MORE Losartan Potassium (Losartan Potassium 50 Mg Tablet) 50 mg PO DAILY [facility]; Protocol Last Admin: 06/07/23 08:13 Dose: 50 mg Documented By: NAKUL Ondansetron HCl (Ondansetron Hcl 4 Mg/2 Ml Vial) 4 mg IVPUSH Q8H PRN PRN Reason: Nausea and Vomiting Last Admin: 06/07/23 06:08 Dose: 4 mg Documented By: SHANNON Senna (Sennosides 8.6 Mg Tablet) 17.2 mg PO BEDTIME PRN PRN Reason: Constipation Sodium Chloride (0.9 % Sodium Chloride Flush 3 Ml Syringe) 3 ml IVFLUSH QSHIFT [facility] Last Admin: 06/07/23 08:23 Dose: 3 ml Documented By: NAKUL Labs 06/07/23 05:37 06/07/23 05:37 Labs: Laboratory Results - last 24 hr 06/06/23 06/06/23 06/06/23 11:42 11:43 21:53 MCV 91.3 MCH 29.6 MCHC 32.4 RDW 13.6 Plt Count 373 MPV 9.1 L Immature Gran % (Auto) 0.3 Neut % (Auto) 60.5 Lymph % (Auto) 24.2 Hardy % (Auto) 12.2 H Eos % (Auto) 1.3 Baso % (Auto) 1.5 Lymph # (Auto) 1.9 Hardy # (Auto) 1.0 Eos # (Auto) 0.1 Baso # (Auto) 0.1 Abs Immat Gran (auto) 0.02 Absolute Neuts (auto) 4.8 Absolute Nucleated RBC 0.000 Nucleated RBC % (auto) 0.0 PT 12.2 INR 1.0 Anion Gap 15 Estim Creat Clear Calc 100.0 Estimated GFR > 60 POC Glucose 140 H Random Glucose 168 H Calcium 9.7 Total Bilirubin 0.5 Direct Bilirubin 0.3 AST 27 ALT 30 Alkaline Phosphatase 83 Total Protein 7.6 Albumin 4.2 Urine Color RED Urine Appearance Turbid Urine pH 7.0 Ur Specific [place] 1.015 Urine Protein See Note Urine Glucose (UA) See Note Urine Ketones See Note Urine Blood Large (3+) H Urine Nitrite See Note Ur Leukocyte Esterase See Note Urine RBC >20 H Urine WBC 0-5 Ur Squamous Epith Cells 0-2 Urine Bacteria None Seen Hyaline Casts 0-2 06/07/23 06/07/23 05:37 06:49 MCV 92.2 MCH 30.0 MCHC 32.5 RDW 13.9 Plt Count 334 MPV 9.5 Immature Gran % (Auto) 0.5 H Neut % (Auto) 81.0 H Lymph % (Auto) 7.9 L Hardy % (Auto) 8.1 Eos % (Auto) 1.5 Baso % (Auto) 1.0 Lymph # (Auto) 1.0 L Hardy # (Auto) 1.1 Eos # (Auto) 0.2 Baso # (Auto) 0.1 Abs Immat Gran (auto) 0.06 H Absolute Neuts (auto) 10.6 H Absolute Nucleated RBC 0.000 Nucleated RBC % (auto) 0.0 PT INR Anion Gap 13 Estim Creat Clear Calc 102.7 Estimated GFR > 60 POC Glucose 133 H Random Glucose 154 H Calcium 9.1 D Total Bilirubin Direct Bilirubin AST ALT Alkaline Phosphatase Total Protein Albumin Urine Color Urine Appearance Urine pH Ur Specific [place] Urine Protein Urine Glucose (UA) Urine Ketones Urine Blood Urine Nitrite Ur Leukocyte Esterase Urine RBC Urine WBC Ur Squamous Epith Cells Urine Bacteria Hyaline Casts Assessment and Plan (1) Hematuria: Status: Acute Plan 62-year-old male with history of hypertension, hyperlipidemia, peripheral artery disease on dual antiplatelet therapy, type 1 diabetes, CKD stage 2, facial/scapular muscular dystrophy admitted for further managment of gross hematuria #. Gross hematuria with urinary retention -continue cbi, urology consult pending -follow h/h -hold dapt # Normocytic anemia, unspecified chronicity -H/H above transfusion threshold -monitor H/H # Insulin-dependent type 1 diabetes without hyperglycemia -POC glucose, diabetic diet -Adjusted basal insulin -lispro and sliding scale # hypertension -continue amlodipine, losartan # PAD -hold aspirin, Plavix as above, continue statin # diabetic peripheral neuropathy -continue gabapentin # CKD stage 2 -renal function baseline DVT prophylaxis-ScDs Full code Reason for continued hospitalization: Ongoing CBI for hematuria. Urology consult pending Quality Stroke Does the patient have a stroke diagnosis?: No VTE Prior VTE?: No VTE Risk Level:: Medical - moderate - high VTE Device Contraindication: N/A - Device Ordered VTE Drug Contraindication: Treatment Not Indicated
--- NOTE | 2023-06-07 10:40 | MHC.CM.PN ---
CM MET WITH PT AT BEDSIDE WITH SPOUSE. PT LIVES WITH SPOUSE AND IS INDEPENDENT. USES CANE PRN. DIABETIC SUPPLIES VIA [facility]. + HCP ON FILE, PCP DR. GARCIA AT [facility]. DP: HOME, NO SERVICES ANTICIPATED. OPEN TO [facility] IF RECOMMENDED, FIRST CHOICE [facility]. SPOUSE WILL TRANSPORT HOME. CM WWILL CONTINUE TO FOLLOW FOR ANY CHANGE IN DC PLAN/NEEDS.
[2023-06-07] MEDS: oxyCODONE HCl Immed Release 5 MG TABLET PO ×3 (10:42→21:53)
[2023-06-07 11:09] LABS: Glucose, Whole Blood 148 mg/dL (60-115)
--- NOTE | 2023-06-07 15:24 | HO.WOUND ---
Wound Consult: Initial 62yr old?Male admitted to [facility] on 06/06/23 - See progress notes and H&P for detailed history.? Wound consult placed for Left Lateral Ankle POA.? Patient agreeable to assessment and photo documentation.? Patient reports the wound has been treated in the past by his previous grain processor healed sine finding a new grain processor and reopened wound he reports he will continue to follow up outpatient with [employer] Dr. Johnson for continued care and treatment. He reports he has had the wound for over a year and the wound was healed for approximately 6 months. He reports he sleeps on his left side - we discussed foam dressings and the benefits of off loading and redistributing pressure - both he and his report they currently do not apply prevention measures but are will to - education provided. Left great toe noted for small abrasion patient reports from podiatry appointment with ingrown toenail. Hydrocolloid applied. Left Lateral Ankle Etiology: Chronic Diabetic wound Wound Bed: pink moist wound bed with thin yellow slough Drainage / Odor: small amount of serosang drainage noted on dressing Edges: ? rolled Sandra wound: ?Slight swelling noted - Tubigrip applied (patients from home) and hemosiderin staining noted - No Induration, Fluctuance or Warmth noted Pain: Pain reported Goals of Treatment: ? Durafiber AG - moisture management Recommendations: 1. Off Load all bony prominences with use of pillows and heel boots if needed.? Apply Preventative foams where needed. ? 2. Provide adequate and supplemental nutrition.? 3. Order low air loss mattress. 4. Maintain blood glucose levels per Providers order. 5. Left Great Toe - Cleanse with NS moist gauze, apply hydrocolloid dressing change every 3 days. 6. Left Lateral Ankle - Cleanse with NS Moist gauze, pat dry. Apply skin prep allow to dry. Apply cut to size durafiber AG cover with foam dressing change every 3 days. Re-consult wound care Nurse for wound deterioration or wound changes.
[2023-06-07 15:34] VITALS: BP 114/57; PULSE 71; RESP 16; TEMP 36.2; O2SAT 98
[2023-06-07 16:31] LABS: Glucose, Whole Blood 179 mg/dL (60-115)
[2023-06-07] MEDS: Insulin Lispro 100 UNIT/ML 3 ML VIAL SUBCUT (17:04)
[2023-06-07 19:33] VITALS: BP 134/63; PULSE 77; RESP 18; TEMP 36.5; O2SAT 95
[2023-06-07 20:15] LABS: Glucose, Whole Blood 145 mg/dL (60-115)
[2023-06-07] MEDS: Insulin Glargine,Hum.rec.anlog 100 UNIT/ML 10 ML VIAL 16 UNIT SUBCUT (20:39)
[2023-06-07] MEDS: Dorzolamide/Timolo 2.23%/0.68% 10 ML DRBTL 1 DROP EYE-BOTH (20:39)
[2023-06-07] MEDS: traMADoL HCL 50 MG TABLET PO (20:40)
[2023-06-07] MEDS: Latanoprost 0.005 % Ophth Sol 2.5 ML DROPS 1 DROP EYE-BOTH (21:49)
--- NOTE | 2023-06-07 22:01 | PC.NURSE ---
Pt was in an extraordinary amount of pain after receiving oxy at 1830 and then a dose of Tramadol, pt was still at a level of 7 at 0, I administered oxycodone early for him to help alleviate his leg pain
[2023-06-07 23:35] VITALS: BP 113/57; PULSE 63; RESP 16; TEMP 36.5; O2SAT 92
[2023-06-08 06:50] LABS: Basophils Absolute Auto 0.1 X10*3/uL (0.0-0.2); Basophils Percent Auto 1.1 % (0-2); Eosinophils Absolute Auto 0.3 X10*3/uL (0.0-0.4); Eosinophils Percent Auto 2.9 % (0-4); Hematocrit 28.2 % (42.0-52.0); Imm Gran Abs Auto 0.04 X10*3/uL (0.00-0.03); Imm Gran Pct Auto 0.4 % (0.0-0.4); Lymphocytes Absolute Auto 1.8 X10*3/uL (1.2-4.9); Lymphocytes Percent Auto 17.4 % (20-40); MANUAL DIFF FLAG NO; Mean Corpuscular HGB Conc 31.9 g/dl (31.0-36.0); Mean Corpuscular Hemoglobin 29.8 pg (27.0-33.0); Mean Corpuscular Volume 93.4 fL (80.0-98.0); Mean Platelet Volume 9.9 fL (9.4-12.4); Monocytes Absolute Auto 1.5 X10*3/uL (0.1-1.2); Monocytes Percent Auto 14.7 % (2-11); Neutrophils Absolute Auto 6.5 x10*3/uL (2.0-8.3); Neutrophils Percent Auto 63.5 % (45-73); Platelet Count 323 X10*3/uL (160-400); Red Blood Count 3.02 X10*6/uL (4.60-5.80); Red Cell Distribution Width 13.5 % (11.0-16.0); White Blood Count 10.2 X10*3/uL (4.8-10.8)
[2023-06-08 06:51] LABS: Anion Gap 11 (12-20); Blood Urea Nitrogen 37 mg/dL (9-16); Calcium 8.7 mg/dL (8.4-10.2); Carbon Dioxide 26 mmol/L (22-29); Chloride 103 mmol/L (96-108); Creatinine Clr Calc Pharmacy 90.6; Estimated Glomerular Filt Rate > 60; Glucose Random 93 mg/dL (60-115); Potassium 4.4 mmol/L (3.3-5.1); Sodium 136 mmol/L (135-145)
[2023-06-08] MEDS: oxyCODONE HCl Immed Release 5 MG TABLET PO ×3 (07:05→21:40)
[2023-06-08] MEDS: 0.9 % Sodium Chloride Flush 3 ML SYRINGE IVFLUSH ×3 (07:06→22:00)
[2023-06-08] MEDS: Atorvastatin Calcium 20 MG TABLET PO (07:06)
[2023-06-08] MEDS: Gabapentin 400 MG CAPSULE 800 MG PO ×4 (07:06→21:40)
[2023-06-08] MEDS: Losartan Potassium 50 MG TABLET PO (07:06)
[2023-06-08 07:07] VITALS: BP 126/61; PULSE 64; RESP 12; TEMP 36.2; O2SAT 90
[2023-06-08] MEDS: amLODIPine Besylate 10 MG TABLET PO (07:07)
[2023-06-08 07:11] LABS: Glucose, Whole Blood 83 mg/dL (60-115)
[2023-06-08] MEDS: Dorzolamide/Timolo 2.23%/0.68% 10 ML DRBTL 1 DROP EYE-BOTH ×2 (08:28→21:44)
[2023-06-08] MEDS: Insulin Glargine,Hum.rec.anlog 100 UNIT/ML 10 ML VIAL 15 UNIT SUBCUT (08:28)
--- NOTE | 2023-06-08 08:31 | HO.PM.IMPN ---
Subjective Subjective Date of Service: 06/08/23 Interval History: Continues to have hematuria. Patient is on CBI. Improvement in left leg discomfort Review of Systems General: No fevers, malaise, unintentional weight loss HEENT: No blurred vision, diplopia. No sore throat, nasal congestion, rhinorrhea, sinus pain, ear pain Cardiovascular: No chest pain, palpitations, or leg edema Respiratory: No shortness of breath, wheezing, cough GI: No abdominal pain, nausea, vomiting, diarrhea, constipation, melena, hematochezia : +hematuria, +decreased urinary output, +dysuria. No increased urinary frequency MSK: No myalgia, back pain Neuro: No headaches, weakness, paresthesias Skin: No rashes or lesions Physical Exam Vital Signs: Vital Signs: Last Vital Signs Temp 97.2 F 06/08/23 07:07 Pulse 64 06/08/23 07:07 Resp 12 06/08/23 07:07 BP 126/61 06/08/23 07:07 Pulse Ox 90 L 06/08/23 07:07 O2 Del Method Room Air 06/08/23 07:07 BMI result Body Mass Index 25.8 Middle-aged male lying in bed in no distress Neck supple, no JVD Regular rate and rhythm, S1-S2 heard Regular breath sounds bilaterally, no wheezing or crackles appreciated Abdomen soft nontender, no guarding, no rigidity, Sullivan catheter with 3 way CBI with pinkish urine Patient is awake, alert and oriented to self, place, time and person ; no focal motor deficit Psych: Normal mood No pedal edema Objective Data Active Medications Acetaminophen (Acetaminophen 325 Mg Tablet) 650 mg PO Q6H PRN PRN Reason: Pain, Mild (Pain Scale 1-3) Amlodipine Besylate (Amlodipine Besylate 10 Mg Tablet) 10 mg PO DAILY [facility]; Protocol Last Admin: 06/08/23 07:07 Dose: 10 mg Documented By: JOSEPHINE Atorvastatin Calcium (Atorvastatin Calcium 20 Mg Tablet) 20 mg PO DAILY [facility] Last Admin: 06/08/23 07:06 Dose: 20 mg Documented By: JOSEPHINE Dorzolamide/Timolol (Dorzolamide/Timolo 2.23%/0.68% 10 Ml Drbtl) 1 drop EYE-BOTH BID [facility] Last Admin: 06/08/23 08:28 Dose: 1 drop Documented By: JOSEPHINE Gabapentin (Gabapentin 400 Mg Capsule) 800 mg PO QID [facility] Last Admin: 06/08/23 07:06 Dose: 800 mg Documented By: JOSEPHINE Glucose (Glucose Gel 15 Gm Gel..Gram.) 15 gm PO Q15M PRN; Protocol PRN Reason: per Hypoglycemia Standing Ord. Dextrose (D10) 250 mls @ 750 mls/hr IV Q15M PRN; Protocol PRN Reason: per Hypoglycemia Standing Ord. Insulin Glargine (Insulin Glargine,Hum.Rec.Anlog 100 Unit/Ml 10 Ml Vial) 15 unit SUBCUT DAILY [facility] Last Admin: 06/08/23 08:28 Dose: 15 unit Documented By: JOSEPHINE Insulin Glargine (Insulin Glargine,Hum.Rec.Anlog 100 Unit/Ml 10 Ml Vial) 16 unit SUBCUT BEDTIME [facility] Last Admin: 06/07/23 20:39 Dose: 16 unit Documented By: SHIELA Insulin Human Lispro (Insulin Lispro 100 Unit/Ml 3 Ml Vial) 0 unit SUBCUT QIDACHS [facility]; Protocol Last Admin: 06/08/23 07:06 Dose: Not Given Documented By: JOSEPHINE Non-Admin Reason: No Insulin Coverage Lactic Acid (Ammonium Lactate 12 % Cream 140 Gm Tube) 1 appl TOPICAL BID PRN; Protocol PRN Reason: Dry Skin Latanoprost (Latanoprost 0.005 % Ophth Berenice 2.5 Ml Drops) 1 drop EYE-BOTH BEDTIME [facility] Last Admin: 06/07/23 21:49 Dose: 1 drop Documented By: SHIELA Losartan Potassium (Losartan Potassium 50 Mg Tablet) 50 mg PO DAILY [facility]; Protocol Last Admin: 06/08/23 07:06 Dose: 50 mg Documented By: JOSEPHINE Melatonin (Melatonin 3 Mg Tablet) 6 mg PO BEDTIME PRN PRN Reason: Insomnia Ondansetron HCl (Ondansetron Hcl 4 Mg/2 Ml Vial) 4 mg IVPUSH Q8H PRN PRN Reason: Nausea and Vomiting Last Admin: 06/07/23 06:08 Dose: 4 mg Documented By: SHANNON Oxycodone HCl (Oxycodone Hcl Immed Release 5 Mg Tablet) 5 mg PO Q6H PRN PRN Reason: Pain, Severe (Pain Scale 7-10) Last Admin: 06/08/23 07:05 Dose: 5 mg Documented By: JOSEPHINE Senna (Sennosides 8.6 Mg Tablet) 17.2 mg PO BEDTIME PRN PRN Reason: Constipation Sodium Chloride (0.9 % Sodium Chloride Flush 3 Ml Syringe) 3 ml IVFLUSH QSHIFT [facility] Last Admin: 06/08/23 07:06 Dose: 3 ml Documented By: JOSEPHINE Tramadol HCl (Tramadol Hcl 50 Mg Tablet) 50 mg PO Q6H PRN PRN Reason: Pain, Moderate(Pain Scale 4-6) Last Admin: 06/07/23 20:40 Dose: 50 mg Documented By: RINAK Labs 06/08/23 05:52 06/08/23 05:52 Labs: Laboratory Results - last 24 hr 06/07/23 06/07/23 06/07/23 11:06 16:12 19:36 MCV MCH MCHC RDW Plt Count MPV Immature Gran % (Auto) Neut % (Auto) Lymph % (Auto) [place] % (Auto) Eos % (Auto) Baso % (Auto) Lymph # (Auto) [place] # (Auto) Eos # (Auto) Baso # (Auto) Abs Immat Gran (auto) Absolute Neuts (auto) Absolute Nucleated RBC Nucleated RBC % (auto) Anion Gap Estim Creat Clear Calc Estimated GFR POC Glucose 148 H 179 H 145 H Random Glucose Calcium 06/08/23 06/08/23 05:52 07:06 MCV 93.4 MCH 29.8 MCHC 31.9 RDW 13.5 Plt Count 323 MPV 9.9 Immature Gran % (Auto) 0.4 Neut % (Auto) 63.5 Lymph % (Auto) 17.4 L [place] % (Auto) 14.7 H Eos % (Auto) 2.9 Baso % (Auto) 1.1 Lymph # (Auto) 1.8 [place] # (Auto) 1.5 H Eos # (Auto) 0.3 Baso # (Auto) 0.1 Abs Immat Gran (auto) 0.04 H Absolute Neuts (auto) 6.5 Absolute Nucleated RBC 0.000 Nucleated RBC % (auto) 0.0 Anion Gap 11 L Estim Creat Clear Calc 90.6 Estimated GFR > 60 POC Glucose 83 Random Glucose 93 Calcium 8.7 Assessment and Plan (1) Hematuria: Status: Acute Plan 62-year-old male with history of hypertension, hyperlipidemia, peripheral artery disease on dual antiplatelet therapy, type 1 diabetes, CKD stage 2, facial/scapular muscular dystrophy admitted for further managment of gross hematuria #. Gross hematuria with urinary retention -continue cbi, urology consult pending -follow h/h -hold dapt # Normocytic anemia, unspecified chronicity -H/H above transfusion threshold -monitor H/H # Insulin-dependent type 1 diabetes without hyperglycemia -POC glucose, diabetic diet -Adjusted basal insulin -lispro and sliding scale # hypertension -continue amlodipine, losartan # PAD -hold aspirin, Plavix as above, continue statin # diabetic peripheral neuropathy -continue gabapentin # CKD stage 2 -renal function baseline DVT prophylaxis-ScDs Full code Reason for continued hospitalization: Ongoing CBI for hematuria. Urology consult pending Quality Stroke Does the patient have a stroke diagnosis?: No VTE Prior VTE?: No VTE Risk Level:: Medical - moderate - high VTE Device Contraindication: N/A - Device Ordered VTE Drug Contraindication: Treatment Not Indicated
[2023-06-08 11:05] LABS: Glucose, Whole Blood 129 mg/dL (60-115)
--- NOTE | 2023-06-08 13:29 | MHC.CM.PN ---
EMR REVIEWED AND PER MD ROUNDS, PT NOT MEDICALLY CLEARED FOR DC, CONTINUES WITH CBI/HEMATURIA. CM WILL CONTINUE TO FOLLOW FOR ANY CHANGE IN DC PLAN/NEEDS.
[2023-06-08 15:21] VITALS: BP 159/70; PULSE 81; RESP 18; TEMP 36.7; O2SAT 96
[2023-06-08 16:42] LABS: Glucose, Whole Blood 173 mg/dL (60-115)
[2023-06-08] MEDS: Insulin Lispro 100 UNIT/ML 3 ML VIAL SUBCUT ×2 (17:06→21:40)
[2023-06-08 19:44] VITALS: BP 150/68; PULSE 87; RESP 18; TEMP 36.9; O2SAT 94
[2023-06-08 21:32] LABS: Glucose, Whole Blood 175 mg/dL (60-115)
[2023-06-08] MEDS: Insulin Glargine,Hum.rec.anlog 100 UNIT/ML 10 ML VIAL 16 UNIT SUBCUT (21:40)
[2023-06-08] MEDS: Sennosides 8.6 MG TABLET 17.2 MG PO (21:43)
[2023-06-08] MEDS: Latanoprost 0.005 % Ophth Sol 2.5 ML DROPS 1 DROP EYE-BOTH (22:00)
[2023-06-09] VITALS: BP 131/63; PULSE 76; RESP 18; TEMP 37.7; O2SAT 93
[2023-06-09 06:44] LABS: MANUAL DIFF FLAG NO
[2023-06-09 06:48] LABS: Basophils Absolute Auto 0.1 X10*3/uL (0.0-0.2); Basophils Percent Auto 1.1 % (0-2); Eosinophils Absolute Auto 0.2 X10*3/uL (0.0-0.4); Eosinophils Percent Auto 1.8 % (0-4); Hematocrit 24.1 % (42.0-52.0); Hemoglobin 7.8 g/dl (14.0-18.0); Imm Gran Abs Auto 0.03 X10*3/uL (0.00-0.03); Imm Gran Pct Auto 0.3 % (0.0-0.4); Lymphocytes Percent Auto 31.3 % (20-40); Mean Corpuscular HGB Conc 32.4 g/dl (31.0-36.0); Mean Corpuscular Hemoglobin 30.1 pg (27.0-33.0); Mean Corpuscular Volume 93.1 fL (80.0-98.0); Mean Platelet Volume 9.8 fL (9.4-12.4); Monocytes Absolute Auto 1.4 X10*3/uL (0.1-1.2); Monocytes Percent Auto 14.9 % (2-11); Neutrophils Absolute Auto 4.8 x10*3/uL (2.0-8.3); Neutrophils Percent Auto 50.6 % (45-73); Platelet Count 294 X10*3/uL (160-400); Red Blood Count 2.59 X10*6/uL (4.60-5.80); Red Cell Distribution Width 13.5 % (11.0-16.0); White Blood Count 9.5 X10*3/uL (4.8-10.8)
[2023-06-09 07:11] VITALS: BP 135/62; PULSE 83; RESP 16; TEMP 36.1; O2SAT 94
[2023-06-09 07:16] LABS: Glucose, Whole Blood 106 mg/dL (60-115)
[2023-06-09] MEDS: Gabapentin 400 MG CAPSULE 800 MG PO ×4 (08:28→20:36)
[2023-06-09] MEDS: 0.9 % Sodium Chloride Flush 3 ML SYRINGE IVFLUSH ×3 (08:28→20:38)
[2023-06-09] MEDS: Losartan Potassium 50 MG TABLET PO (08:28)
[2023-06-09] MEDS: Atorvastatin Calcium 20 MG TABLET PO (08:28)
[2023-06-09] MEDS: amLODIPine Besylate 10 MG TABLET PO (08:28)
[2023-06-09] MEDS: Dorzolamide/Timolo 2.23%/0.68% 10 ML DRBTL 1 DROP EYE-BOTH ×2 (08:29→20:39)
[2023-06-09] MEDS: Insulin Glargine,Hum.rec.anlog 100 UNIT/ML 10 ML VIAL 15 UNIT SUBCUT (08:29)
--- NOTE | 2023-06-09 09:17 | P.PNIM_ITS ---
Subjective Subjective Date of Service: 06/09/23 Interval History: Continues to have hematuria. Was unable to tolerate clamping of CBI yesterday. Review of Systems General: No fevers, malaise, unintentional weight loss HEENT: No blurred vision, diplopia. No sore throat, nasal congestion, rhinorrhea, sinus pain, ear pain Cardiovascular: No chest pain, palpitations, or leg edema Respiratory: No shortness of breath, wheezing, cough GI: No abdominal pain, nausea, vomiting, diarrhea, constipation, melena, hematochezia : +hematuria, +decreased urinary output, +dysuria. No increased urinary frequency MSK: No myalgia, back pain Neuro: No headaches, weakness, paresthesias Skin: No rashes or lesions Review of Systems: Yes all other systems are reviewed and are negative Physical Exam 2 Vital Signs: Vital Signs: Last Vital Signs Temp 97 F 06/09/23 07:11 Pulse 83 06/09/23 07:11 Resp 16 06/09/23 07:11 BP 135/62 06/09/23 07:11 Pulse Ox 94 06/09/23 07:11 O2 Del Method Room Air 06/09/23 07:11 BMI result Body Mass Index 25.8 Middle-aged male lying in bed in no distress Neck supple, no JVD Regular rate and rhythm, S1-S2 heard Regular breath sounds bilaterally, no wheezing or crackles appreciated Abdomen soft nontender, no guarding, no rigidity, Sullivan catheter with 3 way CBI with pinkish urine Patient is awake, alert and oriented to self, place, time and person ; no focal motor deficit Psych: Normal mood No pedal edema Objective Data Active Medications Acetaminophen (Acetaminophen 325 Mg Tablet) 650 mg PO Q6H PRN PRN Reason: Pain, Mild (Pain Scale 1-3) Amlodipine Besylate (Amlodipine Besylate 10 Mg Tablet) 10 mg PO DAILY [facility]; Protocol Last Admin: 06/09/23 08:28 Dose: 10 mg Documented By: MAXIME Atorvastatin Calcium (Atorvastatin Calcium 20 Mg Tablet) 20 mg PO DAILY [facility] Last Admin: 06/09/23 08:28 Dose: 20 mg Documented By: MAXIME Dorzolamide/Timolol (Dorzolamide/Timolo 2.23%/0.68% 10 Ml Drbtl) 1 drop EYE- BOTH BID [facility] Last Admin: 06/09/23 08:29 Dose: 1 drop Documented By: MAXIME Gabapentin (Gabapentin 400 Mg Capsule) 800 mg PO QID [facility] Last Admin: 06/09/23 08:28 Dose: 800 mg Documented By: MAXIME Glucose (Glucose Gel 15 Gm Gel..Gram.) 15 gm PO Q15M PRN; Protocol PRN Reason: per Hypoglycemia Standing Ord. Dextrose (D10) 250 mls @ 750 mls/hr IV Q15M PRN; Protocol PRN Reason: per Hypoglycemia Standing Ord. Insulin Glargine (Insulin Glargine,Hum.Rec.Anlog 100 Unit/Ml 10 Ml Vial) 15 unit SUBCUT DAILY [facility] Last Admin: 06/09/23 08:29 Dose: 1 unit Documented By: MAXIME Insulin Glargine (Insulin Glargine,Hum.Rec.Anlog 100 Unit/Ml 10 Ml Vial) 16 unit SUBCUT BEDTIME [facility] Last Admin: 06/08/23 21:40 Dose: 16 unit Documented By: BALWINDER Insulin Human Lispro (Insulin Lispro 100 Unit/Ml 3 Ml Vial) 0 unit SUBCUT QIDACHS [facility]; Protocol Last Admin: 06/09/23 07:29 Dose: Not Given Documented By: MAXIME Non-Admin Reason: No Insulin Coverage Lactic Acid (Ammonium Lactate 12 % Cream 140 Gm Tube) 1 appl TOPICAL BID PRN; Protocol PRN Reason: Dry Skin Latanoprost (Latanoprost 0.005 % Ophth Berenice 2.5 Ml Drops) 1 drop EYE-BOTH BEDTIME [facility] Last Admin: 06/08/23 22:00 Dose: 1 drop Documented By: BALWINDER Losartan Potassium (Losartan Potassium 50 Mg Tablet) 50 mg PO DAILY [facility]; Protocol Last Admin: 06/09/23 08:28 Dose: 50 mg Documented By: MAXIME Melatonin (Melatonin 3 Mg Tablet) 6 mg PO BEDTIME PRN PRN Reason: Insomnia Ondansetron HCl (Ondansetron Hcl 4 Mg/2 Ml Vial) 4 mg IVPUSH Q8H PRN PRN Reason: Nausea and Vomiting Last Admin: 06/07/23 06:08 Dose: 4 mg Documented By: SHANNON Oxycodone HCl (Oxycodone Hcl Immed Release 5 Mg Tablet) 5 mg PO Q6H PRN PRN Reason: Pain, Severe (Pain Scale 7-10) Last Admin: 06/08/23 21:40 Dose: 5 mg Documented By: BALWINDER Senna (Sennosides 8.6 Mg Tablet) 17.2 mg PO BEDTIME PRN PRN Reason: Constipation Last Admin: 06/08/23 21:43 Dose: 17.2 mg Documented By: BALWINDER Sodium Chloride (0.9 % Sodium Chloride Flush 3 Ml Syringe) 3 ml IVFLUSH [facility] Last Admin: 06/09/23 08:28 Dose: 3 ml Documented By: MAXIME Tramadol HCl (Tramadol Hcl 50 Mg Tablet) 50 mg PO Q6H PRN PRN Reason: Pain, Moderate(Pain Scale 4-6) Last Admin: 06/07/23 20:40 Dose: 50 mg Documented By: SHIELA Labs 06/09/23 05:50 06/08/23 05:52 Labs: Laboratory Results - last 24 hr 06/08/23 06/08/23 06/08/23 10:47 16:32 21:28 MCV MCH MCHC RDW Plt Count MPV Immature Gran % (Auto) Neut % (Auto) Lymph % (Auto) [place] % (Auto) Eos % (Auto) Baso % (Auto) Lymph # (Auto) [place] # (Auto) Eos # (Auto) Baso # (Auto) Abs Immat Gran (auto) Absolute Neuts (auto) Absolute Nucleated RBC Nucleated RBC % (auto) POC Glucose 129 H 173 H 175 H 06/09/23 06/09/23 05:50 07:11 MCV 93.1 MCH 30.1 MCHC 32.4 RDW 13.5 Plt Count 294 MPV 9.8 Immature Gran % (Auto) 0.3 Neut % (Auto) 50.6 Lymph % (Auto) 31.3 [place] % (Auto) 14.9 H Eos % (Auto) 1.8 Baso % (Auto) 1.1 Lymph # (Auto) 3.0 [place] # (Auto) 1.4 H Eos # (Auto) 0.2 Baso # (Auto) 0.1 Abs Immat Gran (auto) 0.03 Absolute Neuts (auto) 4.8 Absolute Nucleated RBC 0.000 Nucleated RBC % (auto) 0.0 POC Glucose 106 Assessment and Plan (1) Hematuria: Status: Acute Plan 62-year-old male with history of hypertension, hyperlipidemia, peripheral artery disease on dual antiplatelet therapy, type 1 diabetes, CKD stage 2, facial/scapular muscular dystrophy admitted for further managment of gross hematuria #. Gross hematuria with urinary retention -continue cbi, urology appreciated -hold dapt # acute blood loss anemia in the setting of above -H/H above transfusion threshold -monitor H/H # Insulin-dependent type 1 diabetes without hyperglycemia -POC glucose, diabetic diet -Adjusted basal insulin -lispro and sliding scale # hypertension -continue amlodipine, losartan # PAD -hold aspirin, Plavix as above, continue statin # diabetic peripheral neuropathy -continue gabapentin # CKD stage 2 -renal function baseline DVT prophylaxis-ScDs Full code Reason for continued hospitalization: Ongoing CBI for hematuria. Urology appreciated Quality Stroke Does the patient have a stroke diagnosis?: No VTE Prior VTE?: No VTE Risk Level:: Medical - moderate - high VTE Device Contraindication: N/A - Device Ordered VTE Drug Contraindication: Treatment Not Indicated
[2023-06-09 11:20] LABS: Glucose, Whole Blood 172 mg/dL (60-115)
--- NOTE | 2023-06-09 11:28 | PC.NURSE ---
Addendum entered by Vivi Gaspar RN 06/09/23 18:28: MD Rg and MD Mcneill made aware pt voided 30ml of punch colored urine, pt bladder scanned for 300Ml. Pt refusing to let this RN replace FC at this time, wants to wait until 9PM . Pt denies pain at this time. Addendum entered by Vivi Gaspar RN 06/09/23 17:09: Pt able to void 50ml punch colored urine, then bladder scanned for 301ml. After scan pt able to void 25ml more punch colored urine. MD Rg notified, per MD if pt does not void again within 1 hour replace FC. Addendum entered by Vivi Gaspar RN 06/09/23 14:36: After 1 hour of CBI irrigation urine remains clear, per Dr. Rg remove FC. FC removed, pt tolerated well. C/o slight discomfort and burning with removal. Addendum entered by Vivi Gaspar RN 06/09/23 13:22: MD Rg at bedside to assess pt. At this time pt and voiced concerns and asked questions with this RN present. At this time Dr. Rg hand irrigated pts f/c multiple small clots expelled. CBI restarted, draining clear dark pink tinged urine. Original Note: Mr. Vaughn expressed concerns regarding the continuation of his hematuria. Pt states he has not seen Dr. Rg and would like to speak with him on this matter and come up with a plan to resolve this issue, pt inquiring about possible scope . Dr. Mcneill at beside to assess pt and listen to expressed concerns. [place] text including Charge nurse MD Osito Juarez, Patient Experience Guest Services Attendant Ranjana [place], and Dr. Rg send out at approximately 10:00. Per tiger text MD Rg will come to see Pt midday . Pt continues to require CBI, urine draining red with clots. Pt denies pain or spasms at this time.
--- NOTE | 2023-06-09 11:35 | PC.NURSE ---
MD Mcneill made aware pt had previously experienced pain in left groin down left leg a couple day ago . Pt states pain has since resolved, trace non-pitting edema noted in left ankle and foot. MD Mcneill ordered duplex scan. Pt aware of plan.
[2023-06-09] MEDS: Insulin Lispro 100 UNIT/ML 3 ML VIAL SUBCUT ×3 (11:56→20:37)
--- NOTE | 2023-06-09 13:50 | P.PNUR_ITS ---
Subjective Subjective Date of Service: 06/09/23 Interval history: Patient seen Low CBI Old clot irrigated out from bladder vigorously for 10 minutes Patient and had a number of questions regarding causes of hematuria Emphasized that use of anticoagulation particularly dual antiplatelet therapy is associated with high rates of gross hematuria particularly in the setting of BPH disease Bladder cancer would be a low probability given his other clinical conditions Outpatient cystoscopy recommended Physical Exam 2 Vital Signs: Vital Signs: Last Vital Signs Temp 97 F 06/09/23 07:11 Pulse 83 06/09/23 07:11 Resp 16 06/09/23 07:11 BP 135/62 06/09/23 07:11 Pulse Ox 94 06/09/23 07:11 O2 Del Method Room Air 06/09/23 07:11 BMI result Body Mass Index 25.8 Const: General: cooperative, healthy appearing, comfortable and no acute distress Orientation/consciousness: patient oriented x3 HEENT: Face and sinus: Yes normal facial exam Mouth: moist mucous membranes Neck: Neck: Yes normal visual inspection, Yes full ROM and Yes trachea midline Chest: Chest palpation & inspection: normal inspection of the chest Resp: Effort & Inspection: normal respiratory effort, able to speak in complete sentences and no respiratory distress GI: Inspection: Yes normal to inspection Back/Spine/Pelvis: Cervical Spine: normal cervical lordosis Thoracic/Lumbar Spine: thoracic and lumbar spine normal to inspection Skin: General skin exam: no rashes or lesions noted Neuro: General: patient oriented x3, tone normal and moves all extremities Extrem: General: Yes normal to inspection and Yes capillary refill normal Urology Results Labs 06/09/23 05:50 06/08/23 05:52 Labs: Laboratory Results - last 24 hr 06/08/23 06/08/23 06/09/23 16:32 21:28 05:50 WBC 9.5 RBC 2.59 L Hgb 7.8 L Hct 24.1 L MCV 93.1 MCH 30.1 MCHC 32.4 RDW 13.5 Plt Count 294 MPV 9.8 Immature Gran % (Auto) 0.3 Neut % (Auto) 50.6 Lymph % (Auto) 31.3 [place] % (Auto) 14.9 H Eos % (Auto) 1.8 Baso % (Auto) 1.1 Lymph # (Auto) 3.0 [place] # (Auto) 1.4 H Eos # (Auto) 0.2 Baso # (Auto) 0.1 Abs Immat Gran (auto) 0.03 Absolute Neuts (auto) 4.8 Absolute Nucleated RBC 0.000 Nucleated RBC % (auto) 0.0 POC Glucose 173 H 175 H 06/09/23 06/09/23 07:11 11:16 WBC RBC Hgb Hct MCV MCH MCHC RDW Plt Count MPV Immature Gran % (Auto) Neut % (Auto) Lymph % (Auto) [place] % (Auto) Eos % (Auto) Baso % (Auto) Lymph # (Auto) [place] # (Auto) Eos # (Auto) Baso # (Auto) Abs Immat Gran (auto) Absolute Neuts (auto) Absolute Nucleated RBC Nucleated RBC % (auto) POC Glucose 106 172 H Urology Procedures Other Procedure Other Procedure: Sullivan catheter disconnected from collection bag. Irrigation halted. Bladder irrigated for removal of significant clot. Approximately 10 minutes taken for full irrigation. The completion of irrigation catheter bag reattached. Irrigation restarted. Irrigation may be halted once collection bed free of clot for 12 hours. P.r.n. irrigation with 100 cc for clot Hematuria Bladder Irriation CPT 16341 Progress Note: A&P Assessment and plan (1) Hematuria: Status: Acute Plan Halt CBI and review in 1 hour for catheter removal Outpatient cystoscopy based on history of anticoagulation use Time Spent With Patient Time: Total time managing care of this patient today ____ minutes. Progress Note: Quality Stroke Does the patient have a stroke diagnosis?: No
[2023-06-09] MEDS: polyethylene glycoL 3350 17 GM POWD.PACK PO (14:43)
[2023-06-09] MEDS: Acetaminophen 325 MG TABLET 650 MG PO (14:43)
[2023-06-09] MEDS: oxyCODONE HCl Immed Release 5 MG TABLET PO ×2 (14:46→20:36)
[2023-06-09 15:02] VITALS: BP 132/66; PULSE 87; RESP 18; TEMP 36.3; O2SAT 93
[2023-06-09] MEDS: Phenazopyridine HCL 100 MG TABLET PO (15:23)
[2023-06-09 16:04] LABS: Glucose, Whole Blood 181 mg/dL (60-115)
[2023-06-09 19:08] VITALS: BP 148/69; PULSE 71; RESP 16; TEMP 36.7; O2SAT 93
[2023-06-09 19:48] LABS: Glucose, Whole Blood 169 mg/dL (60-115)
[2023-06-09] MEDS: Sennosides 8.6 MG TABLET 17.2 MG PO (20:36)
[2023-06-09] MEDS: Insulin Glargine,Hum.rec.anlog 100 UNIT/ML 10 ML VIAL 16 UNIT SUBCUT (20:37)
[2023-06-09] MEDS: Latanoprost 0.005 % Ophth Sol 2.5 ML DROPS 1 DROP EYE-BOTH (20:39)
--- NOTE | 2023-06-09 23:04 | MHC.PIE ---
p; pt urinating small amounts, bladder scanned for over 500. pt reluctant on aguilar placement, pt educated multiple times with good result i; aguilar placed per order by dr eller e; aguilar drained over 700 dark tez colored urine. will cont to monitor
[2023-06-10 06:09] LABS: Anion Gap 11 (12-20); Blood Urea Nitrogen 29 mg/dL (9-16); Carbon Dioxide 27 mmol/L (22-29); Chloride 106 mmol/L (96-108); Creatinine Clr Calc Pharmacy 120.3; Estimated Glomerular Filt Rate > 60; Glucose Random 98 mg/dL (60-115); Sodium 139 mmol/L (135-145)
[2023-06-10 06:24] LABS: Basophils Absolute Auto 0.1 X10*3/uL (0.0-0.2); Basophils Percent Auto 1.2 % (0-2); Eosinophils Absolute Auto 0.3 X10*3/uL (0.0-0.4); Eosinophils Percent Auto 3.1 % (0-4); Hematocrit 24.8 % (42.0-52.0); Hemoglobin 8.1 g/dl (14.0-18.0); Imm Gran Abs Auto 0.03 X10*3/uL (0.00-0.03); Imm Gran Pct Auto 0.3 % (0.0-0.4); Lymphocytes Absolute Auto 2.6 X10*3/uL (1.2-4.9); Lymphocytes Percent Auto 24.7 % (20-40); MANUAL DIFF FLAG SCAN; Mean Corpuscular HGB Conc 32.7 g/dl (31.0-36.0); Mean Corpuscular Hemoglobin 29.8 pg (27.0-33.0); Mean Corpuscular Volume 91.2 fL (80.0-98.0); Mean Platelet Volume 9.8 fL (9.4-12.4); Monocytes Absolute Auto 1.9 X10*3/uL (0.1-1.2); Monocytes Percent Auto 18.2 % (2-11); Neutrophils Absolute Auto 5.5 x10*3/uL (2.0-8.3); Neutrophils Percent Auto 52.5 % (45-73); Platelet Count 321 X10*3/uL (160-400); Red Blood Count 2.72 X10*6/uL (4.60-5.80); Red Cell Distribution Width 13.4 % (11.0-16.0); SCAN SMEAR FLAG 1; White Blood Count 10.5 X10*3/uL (4.8-10.8)
[2023-06-10 07:00] LABS: SLIDE REVIEW VERIFIED
[2023-06-10 07:26] LABS: Glucose, Whole Blood 96 mg/dL (60-115)
[2023-06-10 07:38] VITALS: BP 126/60; PULSE 79; RESP 18; TEMP 36.7; O2SAT 92
[2023-06-10 08:25] VITALS: BP 126/60
[2023-06-10] MEDS: Losartan Potassium 50 MG TABLET PO (08:25)
[2023-06-10] MEDS: amLODIPine Besylate 10 MG TABLET PO (08:25)
[2023-06-10] MEDS: Gabapentin 400 MG CAPSULE 800 MG PO ×4 (08:25→21:16)
[2023-06-10] MEDS: Atorvastatin Calcium 20 MG TABLET PO (08:25)
[2023-06-10] MEDS: 0.9 % Sodium Chloride Flush 3 ML SYRINGE IVFLUSH ×3 (08:26→21:18)
[2023-06-10] MEDS: Insulin Glargine,Hum.rec.anlog 100 UNIT/ML 10 ML VIAL 15 UNIT SUBCUT (08:26)
[2023-06-10] MEDS: Dorzolamide/Timolo 2.23%/0.68% 10 ML DRBTL 1 DROP EYE-BOTH ×2 (08:27→21:16)
[2023-06-10 11:35] LABS: Glucose, Whole Blood 172 mg/dL (60-115)
[2023-06-10] MEDS: Insulin Lispro 100 UNIT/ML 3 ML VIAL SUBCUT ×2 (11:48→16:57)
--- NOTE | 2023-06-10 12:00 | HO.PM.IMPN ---
Subjective Subjective Date of Service: 06/10/23 Interval History: cbi declotted, changed to aguilar yesterday, now rust colored Physical Exam Vital Signs: Vital Signs: Last Vital Signs Temp 98.1 F 06/10/23 07:38 Pulse 79 06/10/23 07:38 Resp 18 06/10/23 07:38 BP 126/60 06/10/23 08:25 Pulse Ox 92 06/10/23 07:38 O2 Del Method Room Air 06/10/23 07:38 BMI result Body Mass Index 25.8 General: AO X 3, no acute distress Resp: CTA bilateral, no accessory muscles used CVS: S1,S2,RRR GI: soft, non tender, non distended Neuro: motor grossly intact, alert Psych: appropriate affect, appropriate insight Objective Data Active Medications Acetaminophen (Acetaminophen 325 Mg Tablet) 650 mg PO Q6H PRN PRN Reason: Pain, Mild (Pain Scale 1-3) Last Admin: 06/09/23 14:43 Dose: 650 mg Documented By: MAXIME Amlodipine Besylate (Amlodipine Besylate 10 Mg Tablet) 10 mg PO DAILY [facility]; Protocol Last Admin: 06/10/23 08:25 Dose: 10 mg Documented By: MAXIME Atorvastatin Calcium (Atorvastatin Calcium 20 Mg Tablet) 20 mg PO DAILY [facility] Last Admin: 06/10/23 08:25 Dose: 20 mg Documented By: MAXIME Bisacodyl (Bisacodyl 10 Mg Supp.Rect) 10 mg NE DAILY PRN PRN Reason: Constipation Dorzolamide/Timolol (Dorzolamide/Timolo 2.23%/0.68% 10 Ml Drbtl) 1 drop EYE-BOTH BID [facility] Last Admin: 06/10/23 08:27 Dose: 1 drop Documented By: MAXIME Gabapentin (Gabapentin 400 Mg Capsule) 800 mg PO QID [facility] Last Admin: 06/10/23 08:25 Dose: 800 mg Documented By: MAXIME Glucose (Glucose Gel 15 Gm Gel..Gram.) 15 gm PO Q15M PRN; Protocol PRN Reason: per Hypoglycemia Standing Ord. Dextrose (D10) 250 mls @ 750 mls/hr IV Q15M PRN; Protocol PRN Reason: per Hypoglycemia Standing Ord. Insulin Glargine (Insulin Glargine,Hum.Rec.Anlog 100 Unit/Ml 10 Ml Vial) 15 unit SUBCUT DAILY [facility] Last Admin: 06/10/23 08:26 Dose: 15 unit Documented By: MAXIME Insulin Glargine (Insulin Glargine,Hum.Rec.Anlog 100 Unit/Ml 10 Ml Vial) 16 unit SUBCUT BEDTIME [facility] Last Admin: 06/09/23 20:37 Dose: 16 unit Documented By: BALWINDER Insulin Human Lispro (Insulin Lispro 100 Unit/Ml 3 Ml Vial) 0 unit SUBCUT QIDACHS [facility]; Protocol Last Admin: 06/10/23 11:48 Dose: 2 unit Documented By: MAXIME Lactic Acid (Ammonium Lactate 12 % Cream 140 Gm Tube) 1 appl TOPICAL BID PRN; Protocol PRN Reason: Dry Skin Latanoprost (Latanoprost 0.005 % Ophth Berenice 2.5 Ml Drops) 1 drop EYE-BOTH BEDTIME [facility] Last Admin: 06/09/23 20:39 Dose: 1 drop Documented By: BALWINDER Losartan Potassium (Losartan Potassium 50 Mg Tablet) 50 mg PO DAILY [facility]; Protocol Last Admin: 06/10/23 08:25 Dose: 50 mg Documented By: MAXIME Melatonin (Melatonin 3 Mg Tablet) 6 mg PO BEDTIME PRN PRN Reason: Insomnia Ondansetron HCl (Ondansetron Hcl 4 Mg/2 Ml Vial) 4 mg IVPUSH Q8H PRN PRN Reason: Nausea and Vomiting Last Admin: 06/07/23 06:08 Dose: 4 mg Documented By: SHANNON Oxycodone HCl (Oxycodone Hcl Immed Release 5 Mg Tablet) 5 mg PO Q6H PRN PRN Reason: Pain, Severe (Pain Scale 7-10) Last Admin: 06/09/23 20:36 Dose: 5 mg Documented By: BALWINDER Senna (Sennosides 8.6 Mg Tablet) 17.2 mg PO BEDTIME PRN PRN Reason: Constipation Last Admin: 06/09/23 20:36 Dose: 17.2 mg Documented By: BALWINDER Sodium Chloride (0.9 % Sodium Chloride Flush 3 Ml Syringe) 3 ml IVFLUSH QSHIFT [facility] Last Admin: 06/10/23 08:26 Dose: 3 ml Documented By: MAXIME Tramadol HCl (Tramadol Hcl 50 Mg Tablet) 50 mg PO Q6H PRN PRN Reason: Pain, Moderate(Pain Scale 4-6) Last Admin: 06/07/23 20:40 Dose: 50 mg Documented By: SHIELA Labs 06/10/23 05:40 06/10/23 05:40 Labs: Laboratory Results - last 24 hr 06/09/23 06/09/23 06/10/23 16:01 19:44 05:40 MCV 91.2 MCH 29.8 MCHC 32.7 RDW 13.4 Plt Count 321 MPV 9.8 Immature Gran % (Auto) 0.3 Neut % (Auto) 52.5 Lymph % (Auto) 24.7 [place] % (Auto) 18.2 H Eos % (Auto) 3.1 Baso % (Auto) 1.2 Lymph # (Auto) 2.6 [place] # (Auto) 1.9 H Eos # (Auto) 0.3 Baso # (Auto) 0.1 Abs Immat Gran (auto) 0.03 Absolute Neuts (auto) 5.5 Absolute Nucleated RBC 0.000 Nucleated RBC % (auto) 0.0 Smear Tech's Comments VERIFIED Anion Gap 11 L Estim Creat Clear Calc 120.3 Estimated GFR > 60 POC Glucose 181 H 169 H Random Glucose 98 Calcium 9.0 06/10/23 06/10/23 07:15 11:27 MCV MCH MCHC RDW Plt Count MPV Immature Gran % (Auto) Neut % (Auto) Lymph % (Auto) [place] % (Auto) Eos % (Auto) Baso % (Auto) Lymph # (Auto) [place] # (Auto) Eos # (Auto) Baso # (Auto) Abs Immat Gran (auto) Absolute Neuts (auto) Absolute Nucleated RBC Nucleated RBC % (auto) Smear Tech's Comments Anion Gap Estim Creat Clear Calc Estimated GFR POC Glucose 96 172 H Random Glucose Calcium Assessment and Plan (1) Hematuria: Status: Acute Plan 62-year-old male with history of hypertension, hyperlipidemia, peripheral artery disease on dual antiplatelet therapy, type 1 diabetes, CKD stage 2, facial/scapular muscular dystrophy admitted for further managment of gross hematuria Gross hematuria with urinary retention now off cbi, with aguilar rust colored, urology following hodling dapt acute blood loss anemia in the setting of above hgb stable today Insulin-dependent type 1 diabetes without hyperglycemia POC glucose, diabetic diet Adjusted basal insulin lispro and sliding scale hypertension continue amlodipine, losartan PAD hold aspirin, Plavix as above, continue statin diabetic peripheral neuropathy continue gabapentin CKD stage 2 renal function baseline DVT prophylaxis-ScDs due to hematuria Full code Reason for continued hospitalization: follow up gu Quality Stroke Does the patient have a stroke diagnosis?: No VTE Prior VTE?: No VTE Risk Level:: Medical - moderate - high VTE Device Contraindication: N/A - Device Ordered VTE Drug Contraindication: Treatment Not Indicated
[2023-06-10 14:08] VITALS: BP 126/60
--- NOTE | 2023-06-10 14:37 | MHC.CM.PN ---
Addendum entered by Mariah Randhawa 06/10/23 16:03: [facility] IS WILLING TO PROVIDE HOME SERVICES, ACCEPTS, BUT WILL NOT BE ABLE TO CONTINUE SERVICES IF PT PICKS A [facility] PLAN THEY ARE NOT CONTRACTED. PT/S/O UPDATED ON THIS. PROVIDER UPDATED. RN AWARE THAT F/C TEACHING WILL NEED TO BE DONE WITH PT BEFORE DC. Original Note: CM MET WITH PT REGARDING [facility] WHEN DC, PT CHOOSES [facility] . REFERRAL SENT BUT PT'S INSURANCE TERMS ON 06/13. PT IS AWARE OF THIS AND SAID HE HAS BEEN ATTEMPTING TO STRAIGHTEN THIS OUT FOR WEEKS. PT WILL CALL INSURANCE COMPANY TO TRY AND RECTIFY. CM WILL CONTINUE TO FOLLOW
[2023-06-10 16:00] VITALS: BP 167/72; PULSE 81; RESP 18; TEMP 36.4; O2SAT 94
[2023-06-10 17:06] LABS: Glucose, Whole Blood 171 mg/dL (60-115)
[2023-06-10 20:55] LABS: Glucose, Whole Blood 140 mg/dL (60-115)
[2023-06-10] MEDS: traMADoL HCL 50 MG TABLET PO (21:16)
[2023-06-10] MEDS: Latanoprost 0.005 % Ophth Sol 2.5 ML DROPS 1 DROP EYE-BOTH (21:16)
[2023-06-10] MEDS: Insulin Glargine,Hum.rec.anlog 100 UNIT/ML 10 ML VIAL 16 UNIT SUBCUT (21:17)
--- NOTE | 2023-06-10 22:06 | PC.NURSE ---
Pt states passed a clot aguilar leaking irrigated aguilar with 50 cc ns x 4 for moderated amt of clots/Aguilar draining bloody urine.Medicated with ultram 50mg at 2114 for pain.Pt resting comfortably at present time.
[2023-06-11 00:13] VITALS: BP 111/53; PULSE 71; RESP 16; TEMP 37.2; O2SAT 95
[2023-06-11 06:24] LABS: Hematocrit 22.7 % (42.0-52.0); Hemoglobin 7.5 g/dl (14.0-18.0); Mean Corpuscular Hemoglobin 30.5 pg (27.0-33.0); Mean Corpuscular Volume 92.3 fL (80.0-98.0); Mean Platelet Volume 9.3 fL (9.4-12.4); Platelet Count 318 X10*3/uL (160-400); Red Blood Count 2.46 X10*6/uL (4.60-5.80); Red Cell Distribution Width 13.3 % (11.0-16.0); White Blood Count 8.1 X10*3/uL (4.8-10.8)
[2023-06-11 06:36] LABS: Anion Gap 12 (12-20); Blood Urea Nitrogen 23 mg/dL (9-16); Calcium 8.9 mg/dL (8.4-10.2); Carbon Dioxide 27 mmol/L (22-29); Chloride 106 mmol/L (96-108); Creatinine Clr Calc Pharmacy 118.5; Estimated Glomerular Filt Rate > 60; Glucose Fasting 88 mg/dL (60-99); Potassium 4.6 mmol/L (3.3-5.1); Sodium 140 mmol/L (135-145)
[2023-06-11 07:18] VITALS: BP 134/58; PULSE 75; RESP 18; TEMP 36.6; O2SAT 91
[2023-06-11 07:47] LABS: Glucose, Whole Blood 80 mg/dL (60-115)
[2023-06-11] MEDS: 0.9 % Sodium Chloride Flush 3 ML SYRINGE IVFLUSH ×3 (09:04→21:26)
[2023-06-11 09:47] VITALS: BP 135/62; PULSE 78
[2023-06-11] MEDS: Atorvastatin Calcium 20 MG TABLET PO (09:58)
[2023-06-11 09:59] VITALS: BP 135/62
[2023-06-11] MEDS: Losartan Potassium 50 MG TABLET PO (09:59)
[2023-06-11] MEDS: Acetaminophen 325 MG TABLET 650 MG PO (09:59)
[2023-06-11] MEDS: amLODIPine Besylate 10 MG TABLET PO (09:59)
[2023-06-11] MEDS: Gabapentin 400 MG CAPSULE 800 MG PO ×4 (10:00→21:25)
[2023-06-11] MEDS: Insulin Glargine,Hum.rec.anlog 100 UNIT/ML 10 ML VIAL 15 UNIT SUBCUT (10:00)
[2023-06-11] MEDS: Dorzolamide/Timolo 2.23%/0.68% 10 ML DRBTL 1 DROP EYE-BOTH ×2 (10:01→21:25)
--- NOTE | 2023-06-11 10:07 | P.PNIM_ITS ---
Subjective Subjective Date of Service: 06/11/23 Interval History: had further clots overnight requiring hand irrigation, now clearer with minimal sediment vs clots feels better than previous days Physical Exam 2 Vital Signs: Vital Signs: Last Vital Signs Temp 98 F 06/11/23 07:18 Pulse 78 06/11/23 09:47 Resp 18 06/11/23 07:18 BP 135/62 06/11/23 09:59 Pulse Ox 91 L 06/11/23 07:18 O2 Del Method Room Air 06/11/23 07:18 BMI result Body Mass Index 25.8 General: AO X 3, no acute distress Resp: CTA bilateral, no accessory muscles used CVS: S1,S2,RRR GI: soft, non tender, non distended Neuro: motor grossly intact, alert Psych: appropriate affect, appropriate insight Objective Data Active Medications Acetaminophen (Acetaminophen 325 Mg Tablet) 650 mg PO Q6H PRN PRN Reason: Pain, Mild (Pain Scale 1-3) Last Admin: 06/11/23 09:59 Dose: 650 mg Documented By: JORGE Amlodipine Besylate (Amlodipine Besylate 10 Mg Tablet) 10 mg PO DAILY [facility]; Protocol Last Admin: 06/11/23 09:59 Dose: 10 mg Documented By: JORGE Atorvastatin Calcium (Atorvastatin Calcium 20 Mg Tablet) 20 mg PO DAILY [facility] Last Admin: 06/11/23 09:58 Dose: 20 mg Documented By: JORGE Bisacodyl (Bisacodyl 10 Mg Supp.Rect) 10 mg [place] DAILY PRN PRN Reason: Constipation Dorzolamide/Timolol (Dorzolamide/Timolo 2.23%/0.68% 10 Ml Drbtl) 1 drop EYE- BOTH BID [facility] Last Admin: 06/11/23 10:01 Dose: 1 drop Documented By: JORGE Gabapentin (Gabapentin 400 Mg Capsule) 800 mg PO QID [facility] Last Admin: 06/11/23 10:00 Dose: 800 mg Documented By: JORGE Glucose (Glucose Gel 15 Gm Gel..Gram.) 15 gm PO Q15M PRN; Protocol PRN Reason: per Hypoglycemia Standing Ord. Dextrose (D10) 250 mls @ 750 mls/hr IV Q15M PRN; Protocol PRN Reason: per Hypoglycemia Standing Ord. Insulin Glargine (Insulin Glargine,Hum.Rec.Anlog 100 Unit/Ml 10 Ml Vial) 15 unit SUBCUT DAILY [facility] Last Admin: 06/11/23 10:00 Dose: 15 unit Documented By: JORGE Insulin Glargine (Insulin Glargine,Hum.Rec.Anlog 100 Unit/Ml 10 Ml Vial) 16 unit SUBCUT BEDTIME [facility] Last Admin: 06/10/23 21:17 Dose: 16 unit Documented By: SHAHANA Insulin Human Lispro (Insulin Lispro 100 Unit/Ml 3 Ml Vial) 0 unit SUBCUT QIDACHS [facility]; Protocol Last Admin: 06/11/23 07:54 Dose: Not Given Documented By: JORGE Non-Admin Reason: No Insulin Coverage Lactic Acid (Ammonium Lactate 12 % Cream 140 Gm Tube) 1 appl TOPICAL BID PRN; Protocol PRN Reason: Dry Skin Latanoprost (Latanoprost 0.005 % Ophth Berenice 2.5 Ml Drops) 1 drop EYE-BOTH BEDTIME [facility] Last Admin: 06/10/23 21:16 Dose: 1 drop Documented By: SHAHANA Losartan Potassium (Losartan Potassium 50 Mg Tablet) 50 mg PO DAILY [facility]; Protocol Last Admin: 06/11/23 09:59 Dose: 50 mg Documented By: JORGE Melatonin (Melatonin 3 Mg Tablet) 6 mg PO BEDTIME PRN PRN Reason: Insomnia Ondansetron HCl (Ondansetron Hcl 4 Mg/2 Ml Vial) 4 mg IVPUSH Q8H PRN PRN Reason: Nausea and Vomiting Last Admin: 06/07/23 06:08 Dose: 4 mg Documented By: SHANNON Oxycodone HCl (Oxycodone Hcl Immed Release 5 Mg Tablet) 5 mg PO Q6H PRN PRN Reason: Pain, Severe (Pain Scale 7-10) Last Admin: 06/09/23 20:36 Dose: 5 mg Documented By: BALWINDER Senna (Sennosides 8.6 Mg Tablet) 17.2 mg PO BEDTIME PRN PRN Reason: Constipation Last Admin: 06/09/23 20:36 Dose: 17.2 mg Documented By: BALWINDER Sodium Chloride (0.9 % Sodium Chloride Flush 3 Ml Syringe) [facility] Last Admin: 06/11/23 09:04 Dose: 3 ml Documented By: JEVON Tramadol HCl (Tramadol Hcl 50 Mg Tablet) 50 mg PO Q6H PRN PRN Reason: Pain, Moderate(Pain Scale 4-6) Last Admin: 06/10/23 21:16 Dose: 50 mg Documented By: SHAHANA Labs 06/11/23 06:12 06/11/23 06:12 Labs: Laboratory Results - last 24 hr 06/10/23 06/10/23 06/10/23 11:27 16:54 20:39 MCV MCH MCHC RDW Plt Count MPV Absolute Nucleated RBC Nucleated RBC % (auto) Anion Gap Estim Creat Clear Calc Estimated GFR POC Glucose 172 H 171 H 140 H Fasting Glucose Calcium 06/11/23 06/11/23 06:12 07:18 MCV 92.3 MCH 30.5 MCHC 33.0 RDW 13.3 Plt Count 318 MPV 9.3 L Absolute Nucleated RBC 0.000 Nucleated RBC % (auto) 0.0 Anion Gap 12 Estim Creat Clear Calc 118.5 Estimated GFR > 60 POC Glucose 80 Fasting Glucose 88 Calcium 8.9 Assessment and Plan (1) Hematuria: Status: Acute Plan 62-year-old male with history of hypertension, hyperlipidemia, peripheral artery disease on dual antiplatelet therapy, type 1 diabetes, CKD stage 2, facial/scapular muscular dystrophy admitted for further managment of gross hematuria Gross hematuria with urinary retention now off cbi, with aguilar, still needing intermittent hand irrigation holding dapt monitor acute blood loss anemia in the setting of above hgb 7.5, will hold off on transfusion for now, monitor Insulin-dependent type 1 diabetes without hyperglycemia POC glucose, diabetic diet Adjusted basal insulin lispro and sliding scale hypertension continue amlodipine, losartan PAD hold aspirin, Plavix as above, continue statin diabetic peripheral neuropathy continue gabapentin CKD stage 2 renal function baseline DVT prophylaxis-ScDs due to hematuria Full code Reason for continued hospitalization: ongoing hematuria/clots Quality Stroke Does the patient have a stroke diagnosis?: No VTE Prior VTE?: No VTE Risk Level:: Medical - moderate - high VTE Device Contraindication: N/A - Device Ordered VTE Drug Contraindication: Treatment Not Indicated
[2023-06-11 11:49] LABS: Glucose, Whole Blood 175 mg/dL (60-115)
[2023-06-11] MEDS: Insulin Lispro 100 UNIT/ML 3 ML VIAL SUBCUT ×2 (12:01→16:39)
[2023-06-11 16:14] LABS: Glucose, Whole Blood 182 mg/dL (60-115)
[2023-06-11 16:53] VITALS: BP 129/60; PULSE 80; RESP 20; TEMP 36.7; O2SAT 98
[2023-06-11 21:15] LABS: Glucose, Whole Blood 117 mg/dL (60-115)
[2023-06-11] MEDS: Latanoprost 0.005 % Ophth Sol 2.5 ML DROPS 1 DROP EYE-BOTH (21:25)
--- NOTE | 2023-06-11 21:30 | PC.NURSE ---
[id number] pt refused lantus insulin.
[2023-06-12] VITALS: BP 130/64; PULSE 80; RESP 20; TEMP 36.8; O2SAT 98
[2023-06-12 06:28] LABS: Hematocrit 23.6 % (42.0-52.0); Hemoglobin 7.8 g/dl (14.0-18.0); Mean Corpuscular HGB Conc 33.1 g/dl (31.0-36.0); Mean Corpuscular Volume 90.8 fL (80.0-98.0); Mean Platelet Volume 9.5 fL (9.4-12.4); Platelet Count 373 X10*3/uL (160-400); Red Cell Distribution Width 13.4 % (11.0-16.0)
[2023-06-12 06:53] LABS: Anion Gap 15 (12-20); Blood Urea Nitrogen 24 mg/dL (9-16); Carbon Dioxide 25 mmol/L (22-29); Chloride 104 mmol/L (96-108); Estimated Glomerular Filt Rate > 60; Glucose Fasting 124 mg/dL (60-99); Potassium 4.5 mmol/L (3.3-5.1); Sodium 139 mmol/L (135-145)
[2023-06-12 07:24] VITALS: BP 137/61; PULSE 80; RESP 18; TEMP 36.8; O2SAT 91
[2023-06-12 07:39] VITALS: BP 137/61
[2023-06-12] MEDS: Losartan Potassium 50 MG TABLET PO (07:39)
[2023-06-12] MEDS: Insulin Glargine,Hum.rec.anlog 100 UNIT/ML 10 ML VIAL 15 UNIT SUBCUT (07:39)
[2023-06-12] MEDS: 0.9 % Sodium Chloride Flush 3 ML SYRINGE IVFLUSH (07:39)
[2023-06-12 07:40] VITALS: BP 137/61
[2023-06-12] MEDS: Atorvastatin Calcium 20 MG TABLET PO (07:40)
[2023-06-12] MEDS: Gabapentin 400 MG CAPSULE 800 MG PO (07:40)
[2023-06-12] MEDS: amLODIPine Besylate 10 MG TABLET PO (07:40)
[2023-06-12] MEDS: Dorzolamide/Timolo 2.23%/0.68% 10 ML DRBTL 1 DROP EYE-BOTH (07:41)
[2023-06-12] MEDS: Insulin Lispro 100 UNIT/ML 3 ML VIAL SUBCUT (07:44)
[2023-06-12 07:51] LABS: Glucose, Whole Blood 126 mg/dL (60-115)
--- NOTE | 2023-06-12 09:22 | W.MHC.F2F ---
Service Date Service Date: 06/12/23 Encounter Date of encounter: 06/12/23 Reasons for Services Signs and symptoms assessed: weakness Reason for intermediate: GI/ assessment (May flush with 30-60 cc sterile water as needed for increased sediment or blockage, may change aguilar cath with (size) if becomes dislodged as needed and routine every 4 weeks.) Homebound: Leaving the home is medically contraindicated at this time without the asist of a device and/or another person due th the listed conditions above and below. Reason homebound: unsteady gait / fall risk Certification: Based on the above findings, I certify that this patient is confined to the home and needs intermittent intermediate care, physical therapy and/or speech therapy, or continues to need occupational therapy. The patient is under my care, and I have initiated the establishment of the plan of care. The patient will be followed by a physician who will periodically review the plan of care. Time Spent With Patient Time: Total time managing care of this patient today ____ minutes.
--- NOTE | 2023-06-12 09:22 | PM.DS ---
DS: Providers Provider Date of Service: 06/12/23 Date of admission: 06/06/23 20:24 Primary care physician: Chuckie Naylor MD Consults: 06/06/23 20:24 Consult to Urology Routine Consulting Provider: Leonel Rg Reason for consultation: greoss hematuria 06/07/23 02:01 Consult to Wound Care Routine Reason for consultation: left lateral ankle ulceration. DS: Diagnosis Discharge Diagnosis (1) Hematuria: Status: Acute DS: Summary Hospital Course Hospital Course: from initial hpi: 62-year-old male with history of hypertension, hyperlipidemia, peripheral artery disease on dual antiplatelet therapy, type 1 diabetes, CKD stage 2, facial/scapular muscular dystrophy presented to the ED earlier today for evaluation of hematuria. He reports for the past 4 days has been experiencing ?cranberry juice? colored urine that had initially tapered off on Tuesday but then recurred Tuesday morning. This morning reports large clots of blood while urinating with limited urine output. He has reported suprapubic pressure, dysuria but denies any nausea, vomiting, flank pain. He denies history of similar symptoms. He has been compliant with both aspirin and Plavix but is not on any other anticoagulation. On arrival, vital signs stable. Hematology studies significant for a mild normocytic anemia with H/H 12.2/37.6%. Renal function normal, electrolyte levels normal. Urinalysis significant for 3+ blood, otherwise unremarkable. CT abdomen/pelvis pending. In the ED, placed on CBI now with fruit punch colored output. Ouput with catheter placement, 1L. Also given iv morphine for pain. Patient will be admitted for further management of gross hematuria. He has a very remote cigarette smoker with 5 pack-year history. hospital course: Patient was admitted for gross hematuria with urinary retention complicated by acute blood loss anemia. He was treated with continuous bowel irrigation, eventually transitioned to Aguilar catheter with intermittent hand irrigation. His dual antiplatelets were held and should continue to be held until cleared by Urology. Urine eventually cleared. At discharge hemoglobin 7.8, patient did not require transfusion. He will follow up with Urology this week with plan for outpatient cystoscopy. For type 1 diabetes was continued on basal bolus insulin. For hypertension was continued on amlodipine and losartan. For peripheral vascular disease his antiplatelet started on hold as mentioned, he was continued on statin. For diabetic peripheral neuropathy was continued on gabapentin. For CKD to his renal function remained at baseline. Patient is feeling better will be discharged home. Time Attestation Discharge Coordination Time (in mins): 35 Quality: Safe Use of Opioids Does Pt have an Active Cancer Diagnosis on the Problem List?: No Quality: Stroke Does the patient have a stroke diagnosis?: No Physical Exam Vital Signs: Vital Signs: Last Vital Signs Temp 98.2 F 06/12/23 07:24 Pulse 80 06/12/23 07:24 Resp 18 06/12/23 07:24 BP 137/61 06/12/23 07:40 Pulse Ox 91 L 06/12/23 07:24 O2 Del Method Room Air 06/12/23 07:24 BMI result Body Mass Index 25.8 General: AO X 3, no acute distress Resp: CTA bilateral, no accessory muscles used CVS: S1,S2,RRR GI: soft, non tender, non distended Neuro: motor grossly intact, alert Psych: appropriate affect, appropriate insight DS: Data Data Completed and Pending Labs on day of discharge: Laboratory Results - last 24 hr 06/11/23 06/11/23 06/11/23 11:44 16:06 20:41 WBC RBC Hgb Hct MCV MCH MCHC RDW Plt Count MPV Absolute Nucleated RBC Nucleated RBC % (auto) Sodium Potassium Chloride Carbon Dioxide Anion Gap BUN Creatinine Estim Creat Clear Calc Estimated GFR POC Glucose 175 H 182 H 117 H Fasting Glucose Calcium 06/12/23 06/12/23 05:46 07:27 WBC 8.0 RBC 2.60 L Hgb 7.8 L Hct 23.6 L MCV 90.8 MCH 30.0 MCHC 33.1 RDW 13.4 Plt Count 373 MPV 9.5 Absolute Nucleated RBC 0.000 Nucleated RBC % (auto) 0.0 Sodium 139 Potassium 4.5 Chloride 104 Carbon Dioxide 25 Anion Gap 15 BUN 24 H Creatinine 0.67 Estim Creat Clear Calc 115.0 Estimated GFR > 60 POC Glucose 126 H Fasting Glucose 124 H Calcium 9.0 Discharge Plan Discharge Anticipated Discharge Date/Time: 06/12/23 09:16 Patient Disposition: Home Health Service Discharge Diagnosis: hematuria Referrals: Luz[facility] JACOB [Outside] - 3-5 Days (HOME SERVICES FOR LONG TERM AND PHYSICAL THERAPY- A NURSE WILL CALL YOU TO SET UP FIRST VISIT.) Leonel Rg MD [Physician] - 3-5 Days Chuckie Naylor MD [Primary Care Provider] - 1 Week Discharge Medications: Continued latanoprost 0.005 % drops 1 drp ophthalmic (eye) BEDTIME atorvastatin 20 mg tablet 20 mg PO DAILY sildenafil 100 mg tablet 50 - 100 mg PO DAILY PRN (Reason: Sexual Activity) gabapentin 800 mg tablet 800 mg PO QID dorzolamide-timolol 22.3-6.8 mg/mL drops 1 drp ophthalmic (eye) BID ammonium lactate 12 % cream 1 appl topical BID PRN (Reason: Dry Skin) insulin glargine [Lantus Solostar U-100 Insulin] 100 unit/mL (3 mL) insulin pen 19 unit subcut DAILY insulin glargine [Lantus Solostar U-100 Insulin] 100 unit/mL (3 mL) insulin pen 22 unit subcut BEDTIME losartan 50 mg tablet 50 mg PO DAILY urea 20 % Cream 1 appl TOPICAL DAILY amlodipine 10 mg tablet 10 mg PO DAILY insulin lispro 100 unit/mL insulin pen 0 sliding scale dose subcut QIDACHS Held clopidogrel 75 mg tablet 75 mg PO DAILY Hold Instructions: Resume on 06/28/23. hold until cleared by urology aspirin 81 mg tablet,delayed release (DR/EC) 81 mg PO DAILY Hold Instructions: Resume on 06/28/23. hold until cleared by urology Discharge Orders: Discharge Order (Routine); Ordered 06/12/23 Ordered By: Jack Guallpa Diet: Advance to usual diet Activity on Discharge: As tolerated Stand Alone Forms: Patient Portal Discharge page Print Language: Estonian Care Plan Goals: manage, investigate hematuria Health Concerns: hematuria Plan of Treatment: hold plavix and aspirin until okayed by urology continue aguilar for until voiding trial with urology plan for outpatient cystoscopy Assessment: see above
--- NOTE | 2023-06-12 10:26 | MHC.CM.PN ---
DP: PT HAS BEEN MEDICALLY CLEARED FOR DC HOME WITH NEW [facility] FOR SN. [facility] UPDATED ON DC. PT'S S/O WILL TRANSPORT HOME
== END 2023-06-12 11:38 | disposition home health service (06) | DRG 468 ==
LOC: HO.ED 19:55 → HO.EDOVER 20:35 → HO.S3 06-07 00:44
PROVIDERS: Nurse Practitioner Family; Student in an Organized Health Care Education/Training Program; Admitting Provider Physician Assistant; Emergency Provider Emergency Medicine; PCP Internal Medicine; Visit Provider Internal Medicine
DX: R31.0 Gross hematuria (principal); E10.42 Type 1 diabetes mellitus with diabetic polyneuropathy; E10.51 Type 1 diabetes mellitus with diabetic peripheral angiopathy without gangrene; D63.1 Anemia in chronic kidney disease; D62 Acute posthemorrhagic anemia; G71.02 Facioscapulohumeral muscular dystrophy; R33.9 Retention of urine, unspecified; E10.22 Type 1 diabetes mellitus with diabetic chronic kidney disease; I12.9 Hypertensive chronic kidney disease with stage 1 through stage 4 chronic kidney disease, or unspecified chronic kidney disease; N18.2 Chronic kidney disease, stage 2 (mild); Z79.02 Long term (current) use of antithrombotics/antiplatelets; Z79.82 Long term (current) use of aspirin; Z79.899 Other long term (current) drug therapy
CPT/HCPCS: 36415; 74177; 80048; 80076; 81001; 81003; 82947; 85025; 85027; 85610; 93971; 97161; 99285; C1758; J2270; J2405; Q9967

== ENCOUNTER → 2023-06-06 20:24 | Outpatient (BNV) | payer OTHER, SELFPAY | PROVIDERS: Admitting Provider Physician Assistant; Emergency Provider Emergency Medicine; Visit Provider Physician Assistant | DX: R31.9 Hematuria, unspecified (principal) | CPT/HCPCS: 99223; 99232; 99239; G0180 ==

== ENCOUNTER → 2023-06-06 20:24 | Outpatient (BNV) | payer OTHER, SELFPAY | PROVIDERS: Admitting Provider Physician Assistant; Emergency Provider Emergency Medicine; PCP Internal Medicine; Visit Provider Urology | DX: R31.9 Hematuria, unspecified (principal) | CPT/HCPCS: 51700; 99222; 99232 ==

== ENCOUNTER → 2023-06-14 10:09 | Outpatient (BNVA) | payer OTHER, SELFPAY | PROVIDERS: PCP Internal Medicine; Visit Provider Urology ==

== ENCOUNTER 2023-07-12 14:53 | Outpatient (AMB) | payer OTHER, SELFPAY ==
--- NOTE | 2023-07-12 14:58 | MHC.OFFVIS ---
Intake Visit Reasons: Outpatient cystoscopy Intake Note: Patient presents today for a CYSTOSCOPY Procedure: Meds: Sildenafil Allergies to Antibiotic: No Known Allergies Blood Thinner: Aspirin Urinalysis test clear for Cysto? YES Disposable Uro-G HD Cystoscope Cannula: Lot: [id number] Exp: 02/15/2026 [place] Worker Required: No Accompanied by: Self / Same As Patient Allergies No Known Allergies Allergy (Verified 07/12/23 14:59) Medication List - Last Reconciled 07/12/23 by Leonel Rg MD amlodipine 10 mg PO DAILY ammonium lactate 12% 1 appl topical BID PRN aspirin 81 mg PO DAILY atorvastatin 20 mg PO DAILY clopidogrel 75 mg PO DAILY dorzolamide-timolol 22.3-6.8 mg/mL 1 drp ophthalmic (eye) BID gabapentin 800 mg PO QID insulin glargine (Lantus Solostar U-100 Insulin) 19 units subcut DAILY insulin glargine (Lantus Solostar U-100 Insulin) 22 units subcut BEDTIME insulin lispro 0 sliding scale doses subcut QIDACHS latanoprost 0.005% 1 drp ophthalmic (eye) BEDTIME losartan 50 mg PO DAILY sildenafil 50 - 100 mg PO DAILY PRN urea 20% 1 appl topical DAILY HPI Comments Details: Ilir is a pleasant cuacasian male. He is a patient of . He has seen for the following urologic conditions - gross hematuria Had initial presentation to hospital with progressive worsening of gross hematuria CBI Previously on anticoagulation Cystoscopy performed Small bladder cancer No risk factors Plan TURBT with single-dose mitomycin C FOR[facility]LY [facility] Medical History (Updated 07/12/23 @ 15:34 by Leonel Rg MD) Peripheral arterial disease Peripheral neuropathy Type 1 diabetes 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 Hypertension Muscular dystrophy Surgical History (Updated 07/12/23 @ 15:00 by NUPUR Casper) Hx of cystoscopy Social History Household Members: Spouse Housing: House Do you presently have visiting nurse or other home services: No Alcohol intake: current Alcohol intake frequency: a few times a month Patient Tobacco Use Status: Former Tobacco user service: No Review of Systems Const Denies chills and Denies fever(s) Card Reports no additional complaints and Denies syncope Resp Denies cough GI Denies abdominal pain and Denies heartburn Reports as per HPI and Denies change in libido Neuro Denies syncope Psych Denies change in libido Endo Denies change in libido Physical Exam Const General: cooperative, healthy appearing, comfortable and no acute distress Orientation/consciousness: patient oriented x3 HEENT Face and sinus: Yes normal facial exam Mouth: moist mucous membranes Neck Neck: Yes normal visual inspection, Yes full ROM and Yes trachea midline Chest Chest palpation & inspection: normal inspection of the chest Resp Effort & Inspection: normal respiratory effort, able to speak in complete sentences and no respiratory distress GI Inspection: Yes normal to inspection Back/Spine/Pelvis Cervical Spine: normal cervical lordosis Thoracic/Lumbar Spine: thoracic and lumbar spine normal to inspection Skin General skin exam: no rashes or lesions noted Neuro General: patient oriented x3, gait normal, tone normal and moves all extremities Extrem General: Yes normal to inspection and Yes capillary refill normal Office Procedures Cystoscopy Consent Discussed risk and benefit or proposed procedure with the patient. Information consent for procedure given to the patient. Discussed technical aspects, risks, benefits and alternatives in full. Addressed all of the patient's questions and concerns regarding the procedure. The patient demonstrated knowledge and understanding. They wish to proceed with this procedure. Preparation The patient was prepped in the usual manner. A executive director contract shop was present and in the room. Genitalia was prepped with betadine solution in a sterile manner. Lidocaine Jelly 2% was placed into the urethra and 16Fr flexible Olympus cystoscope was inserted into the meatus after adequate lubrication. Procedure Cystoscopy performed using a disposable Urovue digital 16 Bolivian cystoscope. Meatus circumcised Urethra anterior and posterior urethra normal Prostatic Urethra unremarkable Bladder examination with retroflexion of cystoscope Bladder Orifices normal shape and position Bladder Capacity median Trabeculations grade group 1 Cellule Formation note Diverticulum Formation - Mucosal Erythema - Bladder Tumor right anterior wall 2 cm lesion [id number] DISPOSABLE SCOPE URO-G FLEXIBLE SCOPE Procedure code (CPT) selection complete Office Meds lidocaine HCl 2 % mucosal jelly in applicator Performing Provider: Leonel Rg MD Performing Location[facility] Administered by: Renee Lui RN on 07/12/23 15:11 Dose Route Admin Location Dispensed Lot Number Expiration Date [facility] Pattern Storage Clerk 10 mL intra-urethral 10 mL nitrofurantoin monohydrate/macrocrystals 100 mg capsule Performing Provider: Leonel Rg MD Performing Location: [facility] Administered by: Renee Lui RN on 07/12/23 15:11 Dose Route Admin Location Dispensed Lot Number Expiration Date NDC Pattern Storage Clerk 100 mg PO 1 cap naproxen 500 mg tablet Performing Provider: Leonel Rg MD Performing Location: [facility] Administered by: Renee Lui RN on 07/12/23 15:11 Dose Route Admin Location Dispensed Lot Number Expiration Date NDC Pattern Storage Clerk 500 mg PO 1 tab Results AMB Urinalysis, Automated UA Leukoctes 0 Lynn/uL Last Edit by NUPUR Casper on 07/12/23 15:14 UA Nitrite Negative Last Edit by Kel Oviedo [facility] on 07/12/23 15:14 UA Urobilinogen 0.2 mg/dL Last Edit by Kel Oviedo [facility] on 07/12/23 15:14 UA Protein 30 mg/dL Last Edit by Kel Oviedo [facility] on 07/12/23 15:14 1+ Kel Oviedo 07/12/23 15:14 UA pH 6.0 Last Edit by Kel Oviedo [facility] on 07/12/23 15:14 UA Blood 10 Dc/uL Last Edit by Kel Oviedo [facility] on 07/12/23 15:14 UA Specific [place] 1.005 Last Edit by Kel Oviedo [facility] on 07/12/23 15:14 UA Ketone Negative Last Edit by Kel Oviedo [facility] on 07/12/23 15:14 UA Bilirubin 0 mg/dL Last Edit by Kel Oviedo [facility] on 07/12/23 15:14 UA Glucose 0 mg/dL Last Edit by Kel Oviedo [facility] on 07/12/23 15:14 Results Reviewed Results Reviewed: Laboratory Last Values Urine pH (Auto) 6.0 07/12/23 15:00 Specific [place] (Auto) 1.005 07/12/23 15:00 Urine Protein (Auto) 30 mg/dL 07/12/23 15:00 Glucose (UA)(Auto) 0 mg/dL 07/12/23 15:00 Urine Ketones (Auto) Negative 07/12/23 15:00 Urine Blood (Auto) 10 Dc/uL 07/12/23 15:00 Urine Nitrite (Auto) Negative 07/12/23 15:00 Urine Bilirubin (Auto) 0 mg/dL 07/12/23 15:00 Urine Urobilinogen (Auto) 0.2 mg/dL 07/12/23 15:00 Leukocyte Esterase (Auto) 0 Lynn/uL 07/12/23 15:00 Assessment & Plan Assessment & Plan (1) Gross hematuria: Code(s): R31.0 - Gross hematuria Category: Medical (2) Bladder cancer: Code(s): C67.9 - Malignant neoplasm of bladder, unspecified Category: Medical Plan Risks, benefits and alternatives to therapy were discussed. These include but are not limited to infection, bleeding, damage to local organs and tissues, need for further interventions. Anesthetic risks regarding cardiac arrhythmia, blood clots, and potential mortality were discussed. The patient understands the typical recovery time and the outpatient nature of the procedure. After consideration of these risks the patient gives full informed consent and they wish to move ahead with the procedure. Cystoscopy, TURBT medium, mitomycin C Orders: Orders AMB Urinalysis Automated 07/12/23 Z13.9 - Encounter for screening, unspecified AMB Cystoscopy 07/12/23 R31.9 - Hematuria, unspecified Patient Instructions: Imaging studies, laboratory and physical exam results were discussed and reviewed in detail. No major barriers to patient understanding were identified. An opportunity to ask questions regarding the treatment plan was provided. All questions were answered. The patient expressed understanding and agreement with the above treatment plan. The patient is aware they should contact our office by phone for worsening of their current condition or the appearance of new urologic symptoms. Compliance is encouraged with any medications and followup testing that is ordered. It is a privilege to participate in the urologic care of your patient. If you have any questions or concerns regarding treatment for the above conditions, or other urologic issues, please do not hesitate to contact me. The office telephone contact is [phone]. This note is constructed using voice recognition software. While every effort has been made to ensure accuracy application development consultant errors may have been included. Yours sincerely, Dr Leonel Rg MD, [facility] - Urology Providers of Expert, Compassionate Care for the Genitourinary System Coding Level of Care Code Est Pt Level 4 (96927) Diagnoses Gross hematuria R31.0 Bladder cancer C67.9 CPT Codes Cystoscopy - CPT: 83805-[id number] ([id number])
== END 2023-07-12 15:56 | disposition home or self-care (01) ==
PROVIDERS: PCP Internal Medicine; Visit Provider Urology
DX: R31.9 Hematuria, unspecified (principal); Z13.9 Encounter for screening, unspecified
CPT/HCPCS: 52000; 99214

== ENCOUNTER → 2023-07-12 14:53 | Outpatient (BNVA) | payer OTHER, SELFPAY | PROVIDERS: PCP Internal Medicine; Visit Provider Urology | DX: R31.0 Gross hematuria (principal); C67.9 Malignant neoplasm of bladder, unspecified | CPT/HCPCS: 52000; 81003; 99212 ==

== ENCOUNTER 2023-08-08 10:53 | Day surgery (SDC) | payer OTHER, SELFPAY ==
[2023-08-08] VITALS (10 sets, daily range): BP systolic 128–182; BP diastolic 56–67; PULSE 64–80; RESP 10–16; TEMP 36.1–36.7; O2SAT 96–99; BMI 27.3
--- NOTE | 2023-08-08 15:43 | P.CONAN_ITS ---
[facility] Active Problems Active Problems: All Active Problems Bladder cancer (Acute) Gross hematuria (Acute) Past Medical History Medical History Peripheral arterial disease Peripheral neuropathy Type 1 diabetes 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 Hypertension Muscular dystrophy Functional capacity: independent ambulation Surgical History Surgical History Hx of cystoscopy Social History Social History Household Members: Spouse Housing: House Do you presently have visiting nurse or other home services: No Alcohol intake: current Alcohol intake frequency: a few times a month Patient Tobacco Use Status: Former Tobacco user Use of substances other than those prescribed or required for medical reasons: No Are you DNR?: No Advance Directives: No Advance Directives Information Provided: Yes service: No Meds Allergies Allergy/AdvReac Type Severity Reaction Status Date / Time No Known Allergies Allergy Verified 07/12/23 14:59 Active Medications: Current Medications Mitomycin 40 mg/ Cytarabine (200 mg/ Sodium Chloride) 40 mls @ 26.667 mls/hr INTRAVESIC ONCE SANDY Stop: 08/08/23 23:59 Levofloxacin (Levaquin) 500 mg in 100 mls @ 100 mls/hr IV PREOP ONE Stop: 08/08/23 16:21 Home Medications ?Medication ?Instructions ?Recorded ?Confirmed ?Last Taken ?Type amlodipine 10 mg tablet 10 mg PO DAILY 06/06/23 07/12/23 06/06/23 History ammonium lactate 12 % topical cream 1 appl topical BID PRN Dry Skin 06/06/23 07/12/23 Unknown History aspirin 81 mg tablet,delayed 81 mg PO DAILY 06/06/23 07/12/23 06/06/23 History release atorvastatin 20 mg tablet 20 mg PO DAILY 06/06/23 07/12/23 06/06/23 History clopidogrel 75 mg tablet 75 mg PO DAILY 06/06/23 07/12/23 06/06/23 History dorzolamide 22.3 mg-timolol 6.8 1 drp ophthalmic (eye) BID 06/06/23 07/12/23 06/06/23 History mg/mL eye drops gabapentin 800 mg tablet 800 mg PO QID 06/06/23 07/12/23 06/06/23 History insulin glargine 100 unit/mL (3 19 unit subcut DAILY 06/06/23 07/12/23 06/06/23 History mL) subcutaneous pen (Lantus Solostar U-100 Insulin) insulin glargine 100 unit/mL (3 22 unit subcut BEDTIME 06/06/23 07/12/23 06/05/23 History mL) subcutaneous pen (Lantus Solostar U-100 Insulin) insulin lispro 100 unit/mL 0 sliding scale dose subcut QIDACHS 06/06/23 07/12/23 06/06/23 History subcutaneous pen latanoprost 0.005 % eye drops 1 drp ophthalmic (eye) BEDTIME 06/06/23 07/12/23 06/05/23 History losartan 50 mg tablet 50 mg PO DAILY 06/06/23 07/12/23 06/06/23 History sildenafil 100 mg tablet 50 - 100 mg PO DAILY PRN Sexual 06/06/23 07/12/23 Unknown History Activity urea 20 % topical cream 1 appl topical DAILY 06/06/23 07/12/23 06/06/23 History Exam Height,Weight and Vital Signs: Height 5 ft 9 in Weight 83.915 kg Last Vital Signs Temp 98.0 F 08/08/23 14:33 Pulse 80 08/08/23 14:33 Resp 16 08/08/23 14:33 BP 182/60 H 08/08/23 14:33 Pulse Ox 97 08/08/23 14:33 O2 Del Method Room Air 08/08/23 14:33
--- NOTE | 2023-08-08 16:33 | MHC.SHP ---
Pre-Procedural Eval Section A - 24 Hr Update-Section A only Date of Service: 08/08/23 The patient is an INPATIENT: No Changes since office visit: No Cold of Flu in the past 2 weeks, No New Medical Problems, No Changes in Medication and No Patient answered all questions The patient has been examined within 24 hours of the surgical procedure. The History & Physical has been completed within 30 days and I have reviewed it.: Yes Section B - Complete if H&P > 30 days Chief Complaint: Malignant neoplasm of bladder, unspecified Details of Present Illness: Bladder cancer on cystoscopy Relevant Social History: None Present Medications: see Short Stay Collaborative assessment Medical History: No relevant PMH History of Previous Operations: No relevant previous surgery Allergies: Allergies Allergy/AdvReac Type Severity Reaction Status Date / Time No Known Allergies Allergy Verified 07/12/23 14:59 Review of Systems Sugical H&P ROS: Negative: Constitution, Cardiovascular, Respiratory, Neurological, Psychiatric, Hem-Onc, Allergic/Immunologic, Gastrointestinal, Genitourinary, Musculoskeletal, Integumentary, Endocrine and Eyes/Ears/Nose/Throat Exam Surgical H&P Exam: Normal: HEENT, Normal: Heart, Normal: Lungs, Normal: Extremities, Normal: Abdomen, Normal: Skin and Normal: Neurological Plan Diagnosis/Plan: Unchanged (Plan for Transurethral resection of bladder tumor plus instillation chemotherapy) I have reviewed the history and physical and performed a pertinent physical examination on my patient. No changes have occurred unless specified. Time Spent With Patient Time: Total time managing care of this patient today ____ minutes.
--- NOTE | 2023-08-08 16:37 | HO.ANESPROP2 ---
HPI - Anesthesia Eval Consult details Narrative: 62 yo male patient for TURBT with Mitomycin PMFSH Active Problems Active Problems: All Active Problems Bladder cancer (Acute) Gross hematuria (Acute) DM Type Facioscapulohumeral muscular dystrophy PAD. On Plavix. 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 Hypertension Muscular dystrophy Functional capacity: uses cane/walker Family History Family history of problems with anesthesia: No Surgical History Surgical History Hx of cystoscopy History of Problems with Anesthesia: No Social History Social History Household Members: Spouse Housing: House Do you presently have visiting nurse or other home services: No Alcohol intake: current Alcohol intake frequency: a few times a month Patient Tobacco Use Status: Former Tobacco user service: No Meds Allergies Allergy/AdvReac Type Severity Reaction Status Date / Time No Known Allergies Allergy Verified 07/12/23 14:59 Active Medications: Current Medications Mitomycin 40 mg/ Cytarabine (200 mg/ Sodium Chloride) 40 mls @ 26.667 mls/hr INTRAVESIC ONCE SANDY Stop: 08/08/23 23:59 Home Medications ?Medication ?Instructions ?Recorded ?Confirmed ?Last Taken ?Type amlodipine 10 mg tablet 10 mg PO DAILY 06/06/23 07/12/23 06/06/23 History ammonium lactate 12 % topical cream 1 appl topical BID PRN Dry Skin 06/06/23 07/12/23 Unknown History aspirin 81 mg tablet,delayed 81 mg PO DAILY 06/06/23 07/12/23 06/06/23 History release atorvastatin 20 mg tablet 20 mg PO DAILY 06/06/23 07/12/23 06/06/23 History clopidogrel 75 mg tablet 75 mg PO DAILY 06/06/23 07/12/23 06/06/23 History dorzolamide 22.3 mg-timolol 6.8 1 drp ophthalmic (eye) BID 06/06/23 07/12/23 06/06/23 History mg/mL eye drops gabapentin 800 mg tablet 800 mg PO QID 06/06/23 07/12/23 06/06/23 History insulin glargine 100 unit/mL (3 19 unit subcut DAILY 06/06/23 07/12/23 06/06/23 History mL) subcutaneous pen (Lantus Solostar U-100 Insulin) insulin glargine 100 unit/mL (3 22 unit subcut BEDTIME 06/06/23 07/12/23 06/05/23 History mL) subcutaneous pen (Lantus Solostar U-100 Insulin) insulin lispro 100 unit/mL 0 sliding scale dose subcut QIDACHS 06/06/23 07/12/23 06/06/23 History subcutaneous pen latanoprost 0.005 % eye drops 1 drp ophthalmic (eye) BEDTIME 06/06/23 07/12/23 06/05/23 History losartan 50 mg tablet 50 mg PO DAILY 06/06/23 07/12/23 06/06/23 History sildenafil 100 mg tablet 50 - 100 mg PO DAILY PRN Sexual 06/06/23 07/12/23 Unknown History Activity urea 20 % topical cream 1 appl topical DAILY 06/06/23 07/12/23 06/06/23 History Exam Height,Weight and Vital Signs: Height 5 ft 9 in Weight 83.915 kg Last Vital Signs Temp 98.0 F 08/08/23 14:33 Pulse 80 08/08/23 14:33 Resp 16 08/08/23 14:33 BP 182/60 H 08/08/23 14:33 Pulse Ox 97 08/08/23 14:33 O2 Del Method Room Air 08/08/23 14:33 Pertinent Lab Results Pertinent Lab Results: POC 190mg/dL Airway Mallampati Class: III TM Dist: >3cm (Slightly receding chin) Neck ROM: Full Loose/Missing/Broken Teeth: Yes (1 missing. Denies groken or loose teeth) Heart: RRR Lungs: CTAB Assessment and Plan Assessment Anesthesia Assessment: Anesthesia Plan Discussed and Chart Reviewed Final Anesthetic Review Family History of Problems with Anesthesia: No History of Problems with Anesthesia: No NPO: Yes ASA Class: III Final Preanesthetic Review: No Changes in Pt Med Stat, Meds/Allgs Chart Reviewed, Consent Obtained/Reviewed and Anes Risks/Benef Reviewed Patient Risk: Intermediate Procedure Risk: Low Assessment/Block/Sedation in SS: Assess/Block/Sedation-SS Anesthetic Plan Anesthetic Plan: GA Disposition: Standard PACU
--- NOTE | 2023-08-08 17:28 | W.PM.OPN ---
Operative Note Operative Note Date of Service: 08/08/23 Narrative: PreOperative Diagnosis: bladder cancer Post Operative Diagnosis: bladder cancer - Tumor size 4 cm, location right bladder sidewall Procedure: TURBT and mitomycin-C with cytarabine Surgeon: Dr Leonel Rg Anesthesia: general Indications for procedure: Episode of hematuria. Office cystoscopy with flat lesion on right bladder sidewall. Procedure: After informed consent was verified the patient was brought to the operating room and placed in a supine position. Anesthesia was administered per protocol. The patient was placed in a modified dorsal lithotomy position and prepped and draped in a sterile fashion. Safety pause time-out was performed. Antibiotics were confirmed. A 26 [place] Islander continuous flow resectoscope was inserted per urethra. The visual obturator was used in order to minimize potential for urethral damage. Resection performed with bipolar resectoscope on right bladder wall. Fulguration performed of 4 cm area. Did come within 1 cm of right ureteric orifice. Bladder examined using narrow band imaging blue light. No other lesions seen within the bladder. At the completion of the procedure the bladder was irrigated. The cystoscope was removed. A [address] Sullivan catheter was inserted into the bladder. 10 cc was placed in the balloon. Mitomycin-C with cytarabine was instilled into the bladder. The flow from the catheter was left clamped. The inflow to the catheter was attached to a 3 L normal saline bag. The patient tolerated the procedure well. They were extubated in the operating room and transferred in stable condition to the recovery area. Mitomycin-C will remain in the bladder for 1 hour. At the completion of 1 hour the clamp will be removed. The mitomycin-C will be allowed to egress to the urine collection bag. The 3 L bag of normal saline will be run at maximum rate through the bladder in order to dilute any residual mitomycin-C. The Sullivan catheter will then be removed. Pathology: Bladder tumor Drains: Catheter
[2023-08-08] MEDS: Acetaminophen 1,000 MG/100 ML PIGGYBACK 400 MG IV (17:44)
== END 2023-08-08 19:15 | disposition home or self-care (01) ==
PROVIDERS: PCP Internal Medicine; Visit Provider Urology
PROC: 0TBB8ZZ Excision of Bladder, Via Natural or Artificial Opening Endoscopic (ICD-10-PCS; CPT 52235; principal; 2023-08-08 15:00)
DX: C67.9 Malignant neoplasm of bladder, unspecified (principal); E10.22 Type 1 diabetes mellitus with diabetic chronic kidney disease; I12.9 Hypertensive chronic kidney disease with stage 1 through stage 4 chronic kidney disease, or unspecified chronic kidney disease; N18.2 Chronic kidney disease, stage 2 (mild); I73.9 Peripheral vascular disease, unspecified; G62.9 Polyneuropathy, unspecified; G71.00 Muscular dystrophy, unspecified; Z79.4 Long term (current) use of insulin; Z79.82 Long term (current) use of aspirin; Z79.899 Other long term (current) drug therapy; Z87.891 Personal history of nicotine dependence
CPT/HCPCS: 52235; 51720; 88307; J0131; J1956; J2250; J2405; J2704; J3010; J9100; J9280

== ENCOUNTER → 2023-08-08 10:53 | Outpatient (BNV) | payer OTHER, SELFPAY | PROVIDERS: PCP Internal Medicine; Visit Provider Urology | DX: C67.2 Malignant neoplasm of lateral wall of bladder (principal) | CPT/HCPCS: 52235 ==

== ENCOUNTER 2023-08-30 13:41 | Outpatient (AMB) | payer OTHER, SELFPAY ==
--- NOTE | 2023-08-30 13:43 | A.OFFVIS_ITS ---
Intake Visit Reasons: 2 week tele visit Intake Note: Patient is Present for Telephone Follow Up Urology Med: none Antibiotic Allergy: None Blood Thinner: Aspirin/Clopidogrel Allergies No Known Allergies Allergy (Verified 07/12/23 14:59) HPI Comments Details: Ilir is a pleasant male. He is a patient of Dr. Naylor. 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 Hypertension Muscular dystrophy Surgical History Hx of cystoscopy Social History Household Members: Spouse Housing: House Do you presently have visiting nurse or other home services: No Alcohol intake: current Alcohol intake frequency: a few times a month Patient Tobacco Use Status: Former Tobacco user service: No Review of Systems Const All systems reviewed & are unremarkable except as noted in HPI and below Reports no additional complaints Resp Reports no additional complaints GI Reports no additional complaints Reports as per HPI Musc Reports no additional complaints Physical Exam Telemedicine evaluation Appropriate responses Regular breathing rate and rhythm HEENT Head: Yes normal to inspection Ears: hearing grossly normal bilaterally Eyes General: appearance normal, both eyes and all related structures Neck Neck: Yes normal visual inspection Chest Chest palpation & inspection: normal inspection of the chest Resp Effort & Inspection: normal respiratory effort and able to speak in complete sentences Telehealth Telehealth Telehealth Platform: Company Location of provider rendering services: practice address Location of patient: address on file Patient Identification confirmed using: Name, : Yes Telehealth method: video Patient verbally consented to treatment: Yes Patient verbally consented to billing insurance company: Yes Patient informed of any privacy concerns related to visit: Yes Minutes spent on Phone/Video with Pt.: 15 Assessment & Plan Assessment & Plan (1) Bladder cancer: Code(s): C67.9 - Malignant neoplasm of bladder, unspecified Category: Medical Plan Four month follow-up office cysto Patient Instructions: Imaging studies, laboratory and physical exam results were discussed and reviewed in detail. No major barriers to patient understanding were identified. An opportunity to ask questions regarding the treatment plan was provided. All questions were answered. The patient expressed understanding and agreement with the above treatment plan. The patient is aware they should contact our office by phone for worsening of their current condition or the appearance of new urologic symptoms. Compliance is encouraged with any medications and followup testing that is ordered. It is a privilege to participate in the urologic care of your patient. If you have any questions or concerns regarding treatment for the above conditions, or other urologic issues, please do not hesitate to contact me. The office telephone contact is [phone]. This note is constructed using voice recognition software. While every effort has been made to ensure accuracy building construction professor errors may have been included. Yours sincerely, Dr Leonel Rg MD, [facility] - Urology Providers of Expert, Compassionate Care for the Genitourinary System Coding Level of Care Code Tele Est Pt Level 3 (04885) Diagnoses Bladder cancer C67.9
== END 2023-08-30 15:00 | disposition home or self-care (01) ==
LOC: HO.HUSH 13:41
PROVIDERS: PCP Internal Medicine; Visit Provider Urology
DX: C67.9 Malignant neoplasm of bladder, unspecified (principal)
CPT/HCPCS: 99213

== ENCOUNTER → 2023-08-30 13:41 | Outpatient (BNVA) | payer OTHER, SELFPAY | PROVIDERS: PCP Internal Medicine; Visit Provider Urology ==

== ENCOUNTER 2024-02-29 13:48 | Outpatient (REF) | payer OTHER, SELFPAY | END 2024-02-29 13:49 | disposition home or self-care (01) | LOC: HO.LAB 13:48 | PROVIDERS: PCP Internal Medicine; Visit Provider Urology | DX: C67.9 Malignant neoplasm of bladder, unspecified (principal); G62.9 Polyneuropathy, unspecified; N52.1 Erectile dysfunction due to diseases classified elsewhere; R31.0 Gross hematuria; N32.89 Other specified disorders of bladder | CPT/HCPCS: 52000; 81003; 99212 ==

== ENCOUNTER 2024-02-29 13:48 | Outpatient (AMB) | payer MEDICARE, MEDICAID, SELFPAY ==
--- NOTE | 2024-02-29 14:03 | MHC.OFFVIS ---
Intake Visit Reasons: cysto(Bladder Ca) Intake Note: Pt presents to the office today for a Cystoscopy procedure. Cystoscope Lot: [id number] Exp:05/25/26 Allergies No Known Allergies Allergy (Verified 02/29/24 14:03) HPI Comments Details: Ilir is a pleasant male. He is a patient of Dr. Naylor. 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 Hypertension Muscular dystrophy Surgical History Hx of cystoscopy Social History Household Members: Spouse Housing: House Do you presently have visiting nurse or other home services: No Alcohol intake: current Alcohol intake frequency: a few times a month Patient Tobacco Use Status: Former Tobacco user service: No Review of Systems Const Denies chills and Denies fever(s) Card Reports no additional complaints and Denies syncope Resp Denies cough GI Denies abdominal pain and Denies heartburn Reports as per HPI and Denies change in libido Neuro Denies syncope Psych Denies change in libido Endo Denies change in libido Physical Exam Const General: cooperative, healthy appearing, comfortable and no acute distress Orientation/consciousness: patient oriented x3 HEENT Face and sinus: Yes normal facial exam Mouth: moist mucous membranes Neck Neck: Yes normal visual inspection, Yes full ROM and Yes trachea midline Chest Chest palpation & inspection: normal inspection of the chest Resp Effort & Inspection: normal respiratory effort, able to speak in complete sentences and no respiratory distress GI Inspection: Yes normal to inspection Back/Spine/Pelvis Cervical Spine: normal cervical lordosis Thoracic/Lumbar Spine: thoracic and lumbar spine normal to inspection Skin General skin exam: no rashes or lesions noted Neuro General: patient oriented x3, gait normal, tone normal and moves all extremities Extrem General: Yes normal to inspection and Yes capillary refill normal Office Procedures Cystoscopy Consent Discussed risk and benefit or proposed procedure with the patient. Information consent for procedure given to the patient. Discussed technical aspects, risks, benefits and alternatives in full. Addressed all of the patient's questions and concerns regarding the procedure. The patient demonstrated knowledge and understanding. They wish to proceed with this procedure. Preparation The patient was prepped in the usual manner. A pipe stem repairer was present and in the room. Genitalia was prepped with betadine solution in a sterile manner. Lidocaine Jelly 2% was placed into the urethra and 16Fr flexible Olympus cystoscope was inserted into the meatus after adequate lubrication. Procedure Cystoscopy performed using a disposable Urovue digital 16 Portuguese cystoscope. Meatus normal position Urethra anterior and posterior urethra normal Prostatic Urethra unremarkable Bladder examination with retroflexion of cystoscope Bladder Orifices normal shape and position Bladder Capacity normal Trabeculations mild moderate severe Cellule Formation - Diverticulum Formation - Mucosal Erythema - Bladder Tumor - [id number] DISPOSABLE SCOPE URO-G FLEXIBLE SCOPE Procedure code (CPT) selection complete Office Meds lidocaine HCl 2 % mucosal jelly in applicator Performing Provider: Leonel Rg MD [facility] Administered by: Leonel Rg MD on 02/29/24 14:36 Dose Route Admin Location Dispensed Lot Number Expiration Date [facility] Sales Representative Wire Rope 10 mL intra-urethral 10 mL Results AMB Urinalysis, Automated UA Leukoctes 0 Lynn/uL Last Edit by Donna Jeronimo CMA on 02/29/24 14:10 UA Nitrite Negative Last Edit by Donna Jeronimo CMA on 02/29/24 14:10 UA Urobilinogen 0.2 mg/dL Last Edit by Donna Jeronimo CMA on 02/29/24 14:10 UA Protein 100 mg/dL Last Edit by Donna Jeronimo CMA on 02/29/24 14:10 UA pH 7.0 Last Edit by Donna Jeronimo CMA on 02/29/24 14:10 UA Blood 25 Dc/uL Last Edit by Donna Jeronimo CMA on 02/29/24 14:10 UA Specific [place] 1.010 Last Edit by Donna Jeronimo CMA on 02/29/24 14:10 UA Ketone Negative Last Edit by Donna Jeronimo CMA on 02/29/24 14:10 UA Bilirubin 0 mg/dL Last Edit by Donna Jeronimo CMA on 02/29/24 14:10 UA Glucose 0 mg/dL Last Edit by Donna Jeronimo CMA on 02/29/24 14:10 Results Reviewed Results Reviewed: Laboratory Last Values Urine pH (Auto) 7.0 02/29/24 14:04 Specific [place] (Auto) 1.010 02/29/24 14:04 Urine Protein (Auto) 100 mg/dL 02/29/24 14:04 Glucose (UA)(Auto) 0 mg/dL 02/29/24 14:04 Urine Ketones (Auto) Negative 02/29/24 14:04 Urine Blood (Auto) 25 Dc/uL 02/29/24 14:04 Urine Nitrite (Auto) Negative 02/29/24 14:04 Urine Bilirubin (Auto) 0 mg/dL 02/29/24 14:04 Urine Urobilinogen (Auto) 0.2 mg/dL 02/29/24 14:04 Leukocyte Esterase (Auto) 0 Lynn/uL 02/29/24 14:04 Assessment & Plan Assessment & Plan (1) Bladder cancer: Code(s): C67.9 - Malignant neoplasm of bladder, unspecified Category: Medical (2) Erectile dysfunction due to neuropathy: Comment: Type 1 diabetic Code(s): G62.9 - Polyneuropathy, unspecified; N52.1 - Erectile dysfunction due to diseases classified elsewhere Category: Medical Plan 4 month follow-up check cystoscopy Orders: Orders AMB Cystoscopy Today C67.9 - Malignant neoplasm of bladder, unspecified AMB Urinalysis Automated Today R31.0 - Gross hematuria Patient Instructions: Imaging studies, laboratory and physical exam results were discussed and reviewed in detail. No major barriers to patient understanding were identified. An opportunity to ask questions regarding the treatment plan was provided. All questions were answered. The patient expressed understanding and agreement with the above treatment plan. The patient is aware they should contact our office by phone for worsening of their current condition or the appearance of new urologic symptoms. Compliance is encouraged with any medications and followup testing that is ordered. It is a privilege to participate in the urologic care of your patient. If you have any questions or concerns regarding treatment for the above conditions, or other urologic issues, please do not hesitate to contact me. The office telephone contact is [phone]. This note is constructed using voice recognition software. While every effort has been made to ensure accuracy printing shop supervisor errors may have been included. Yours sincerely, Dr Leonel Rg MD, [facility] - Urology Providers of Expert, Compassionate Care for the Genitourinary System Coding Level of Care Code Est Pt Level 3 (46383) Diagnoses Bladder cancer C67.9 Erectile dysfunction due to neuropathy G62.9; N52.1 CPT Codes Cystoscopy - CPT: 19426-[id number] ([id number])
== END 2024-02-29 14:46 | disposition home or self-care (01) ==
PROVIDERS: PCP Internal Medicine; Visit Provider Urology
DX: C67.2 Malignant neoplasm of lateral wall of bladder (principal); G62.9 Polyneuropathy, unspecified; N52.1 Erectile dysfunction due to diseases classified elsewhere; R31.0 Gross hematuria
CPT/HCPCS: 52000; 99213

== ENCOUNTER 2024-05-29 14:52 | Outpatient (AMB) | payer MEDICARE, MEDICAID, SELFPAY ==
--- NOTE | 2024-05-29 14:53 | MHC.OFFVIS ---
Intake Visit Reasons: discuss trimix adjustment Intake Note: Patient is present for DISCUSS TRIMIX ADJUSTMENT Urology Medication:SILDENAFIL Antibiotic Allergy:NONE Blood Thinner:ASPIRIN Bellperson Required: No Allergies No Known Allergies Allergy (Verified 05/29/24 14:54) HPI Comments Details: Ilir is a pleasant male. He is a patient of Dr. Naylor. He has seen for the following urologic conditions - bladder cancer - erectile dysfunction in setting of diabetes Telemedicine Evaluation 15 min Consultation [employer] An Video Discussion regarding count use of TriMix Able to obtain but can not fully maintain erection discussed use of penile constriction ring Information provided He will take picture of TriMix for next appointment Bladder cancer - low-grade Low-grade bladder cancer Initial management with TURBT and single-dose mitomycin C TURBT 08/07 - Ta low grade Cystoscopy 03/10 NAD Erectile dysfunction in setting of diabetes Seen at [facility] Responded to super TriMix Using 10 unit dosage PFSH Medical History Peripheral arterial disease Peripheral neuropathy Type 1 diabetes 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 Hypertension Muscular dystrophy Surgical History Hx of cystoscopy Social History Household Members: Spouse Housing: House Do you presently have visiting nurse or other home services: No Alcohol intake: current Alcohol intake frequency: a few times a month Patient Tobacco Use Status: Former Tobacco user service: No Review of Systems Const All systems reviewed & are unremarkable except as noted in HPI and below Reports no additional complaints Resp Reports no additional complaints GI Reports no additional complaints Reports as per HPI Musc Reports no additional complaints Physical Exam Telemedicine evaluation Appropriate responses Regular breathing rate and rhythm HEENT Head: Yes normal to inspection Ears: hearing grossly normal bilaterally Eyes General: appearance normal, both eyes and all related structures Neck Neck: Yes normal visual inspection Chest Chest palpation & inspection: normal inspection of the chest Resp Effort & Inspection: normal respiratory effort and able to speak in complete sentences Telehealth Telehealth Location of provider rendering services: practice address Location of patient: address on file Patient Identification confirmed using: Name, : Yes Telehealth method: voice only Patient verbally consented to treatment: Yes Patient verbally consented to billing insurance company: Yes Patient informed of any privacy concerns related to visit: Yes Assessment & Plan Assessment & Plan (1) Bladder cancer: Code(s): C67.9 - Malignant neoplasm of bladder, unspecified Category: Medical (2) Erectile dysfunction due to neuropathy: Comment: Type 1 diabetic Code(s): G62.9 - Polyneuropathy, unspecified; N52.1 - Erectile dysfunction due to diseases classified elsewhere Category: Medical Plan Keep follow-up in June Patient Instructions: This note is constructed using voice recognition software. While every effort has been made to ensure accuracy wafer abrading machine tender errors may have been included. Imaging studies, laboratory and physical exam results were discussed and reviewed in detail. No major barriers to patient understanding were identified. An opportunity to ask questions regarding the treatment plan was provided. All questions were answered. The patient expressed understanding and agreement with the above treatment plan. The patient is aware they should contact our office by phone for worsening of their current condition or the appearance of new urologic symptoms. Compliance is encouraged with any medications and followup testing that is ordered. It is a privilege to participate in the urologic care of your patient. If you have any questions or concerns regarding treatment for the above conditions, or other urologic issues, please do not hesitate to contact me. The office telephone contact is [phone]. Sincerely, Dr Leonel Rg MD, [facility] - Urology Compassionate Specialist Care for the Genitourinary System Coding Level of Care Code Tele Est Pt Level 3 (90707) Diagnoses Bladder cancer C67.9 Erectile dysfunction due to neuropathy G62.9; N52.1
--- OUTSIDE RECORDS SUMMARY | 2024-05-29 18:07 | XMS_ITS | Clinical Summary ---
Author Organization [facility] Address [address] [address] Phone Care Team Providers Care Driller'S Assistant Name Role Phone Silvino Lowery MD Primary Care Provider [phone] Allergies No known active allergies Medications atorvastatin (LIPITOR) 20 MG tablet Take 20 mg by mouth 1 (one) time each day 4 Active sildenafil (VIAGRA) 100 MG tablet Take 50 mg by mouth if needed Active ammonium lactate (AMLACTIN) 12 % cream Apply topically 2 (two) times a day if needed 4 Active gabapentin (NEURONTIN) 800 MG tablet Take 800 mg by mouth in the morning and 800 mg at noon and 800 mg in the evening and 800 mg before bedtime. Active Continuous Glucose Sensor (Dexcom G6 Sensor) [facility] USE DIRECTED 4 Active Aspirin 81 MG capsule Take 81 mg by mouth 1 (one) time each day 4 Active Lantus SoloStar 100 UNIT/ML injection Inject 19 Units under the skin in the morning and 19 Units in the evening. 22 units at night. 4 Active latanoprost (XALATAN) 0.005 % ophthalmic solution Administer 1 drop into both eyes every night 4 Active insulin NPH, Isophane, (HumuLIN N KWIKPEN) 100 UNIT/ML injection Inject 20 Units under the skin in the morning and 20 Units in the evening. 0 Active losartan (COZAAR) 100 MG tablet Take 1 tablet (100 mg total) by mouth 1 (one) time each day 90 tablet 3 4 05/31/19 25 Active amLODIPine (NORVASC) 5 MG tablet Take 1 tablet (5 mg total) by mouth 1 (one) time each day 90 tablet 3 4 05/31/19 25 Active Active Problems Problem Noted Date Diagnosed Date Stage 1 chronic kidney disease 05/31/2023 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/31/2023 Proteinuria, not otherwise specified 05/31/2023 Hypertension 05/31/2023 Muscular dystrophy 05/31/2023 Peripheral arterial occlusive disease 05/31/2023 Diabetic peripheral neuropathy 02/01/2022 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/2010 Encounters Date Type Department Care Team Description 05/29/2024 Orders Only [facility] [address] [address] Van Sparks MD from Last 3 Months Family History Medical History Relation Comments Coronary artery disease Father Diabetes Father Muscular dystrophy Maternal Grandmother Muscular dystrophy Mother Arthritis Paternal Grandmother Diabetes Paternal Grandmother Hypertension Paternal Grandmother Diabetes Sister Relation Status Comments Father Maternal Grandfather Maternal Grandmother Mother Paternal Grandfather Paternal Grandmother Sister Social History Tobacco Use Types Packs/Day Years Used Date Smoking Tobacco: Former Cigarettes 1 2 0 02/15/1988 - 02/14/1990 Smokeless Tobacco: Never Tobacco Cessation:Counseling Given: Not Answered Alcohol Use Standard Drinks/Week Comments Yes 0 (1 standard drink = 0.6 oz pur e alcohol) 2 glasses of wine once a week Sex and Gender Information Value Date Recorded Sex Assigned at Not on file Legal Sex Male 4:51 PM EST Gender Identity Not on file Sexual Orientation Not on file Last Filed Vital Signs Vital Sign Reading Time Taken Comments Blood Pressure 154/58 05/31/2023 8:04 AM EDT Pulse 92 05/31/2023 8:04 AM EDT Temperature - - Respiratory Rate - - Oxygen Saturation 99% 05/31/2023 8:04 AM EDT Inhaled Oxygen Concentration - - Weight 87.2 kg (192 lb 3.2 oz) 05/31/2023 8:04 A M EDT Height 180.3 cm (5' 11 ) 05/31/2023 8:04 AM EDT Body Mass Index 26.81 05/31/2023 8:04 AM EDT Plan of Treatment Upcoming Encounters Date Type Department Care Team (Late st Contact Info) Description 07/23/2024 11:20 AM EDT Office Visit [facility] [address] [address] Van Sparks MD [address] [address] Health Maintenance Due Date Last Done Comments Colorectal Cancer Screening: Annual FOBT 10/08/2007 Colorectal Cancer Screening: Colonoscopy 10/08/2007 Colorectal Cancer Screening: Sigmoidoscopy 10/08/2007 Pneumococcal Vaccine: 50+ Ye ars (2 of 2 - PCV) 06/07/2008 06/08/2007 Diabetes: Ophthalmology Exam 05/31/2023 Diabetes: Pedal Pulse Checked 05/31/2023 Diabetes: Sensory Foot Exam 05/31/2023 Diabetes: Visual Foot Exam 05/31/2023 Diabetes: Hemoglobin A1C 08/26/2023 05/27/2023 Influenza Vaccine (Season Ended) 2024 Pneumococcal Vaccine: Peds ( 0 to 5 Years) and At-Risk Patients (6 to 49 Years) Discontinued 06/08/2007 Hepatitis B Vaccine Aged Out No longe r eligible based on patient's age to complete this topic Procedures Procedure Name Priority Date/Time Associated Diagnosis Comments VITAMIN D 25 HYDROXY Routine 05/29/2024 12:25 PM EDT PTH, INTACT Routine 05/29/2024 12:25 PM EDT URINALYSIS RFX MICROSCOPIC Routine 05/29/2024 12:25 PM EDT COMPREHENSIVE METABOLIC PANEL Routine 05/29/2024 12:25 PM EDT URIC ACID Routine 05/29/2024 12:25 PM EDT PHOSPHATE ( PHOSPHORUS) Routine 05/29/2024 12:25 PM EDT MAGNESIUM Routine 05/29/2024 12:25 PM EDT CBC WITH AUTO DIFFERENTIAL Routine 05/29/2024 12:25 PM EDT from Last 3 Months Results * (ABNORMAL) CBC auto differential (05/29/2024 12:25 PM EDT) WBC 8.2 4.8 - 10.8 K/[facility] RBC 3.90(L) 4.50 - 5.50 M/[facility] Hgb 11.4(L) 13.5 - 17.5 g/dL [facility] Hematocrit 36.6(L) 42.0 - 54.0 % [facility] MCV 93.6 79.0 - 98.0 FL [facility] MCH 29.2 27.0 - 32.0 pcg [facility] MCHC 31.1(L) 32.0 - 37.0 g/dL [facility] RDW 14.0 11.0 - 15.0 % [facility] Platelets 643(H) 130 - 400 K/[facility] MPV 9.5 7.0 - 11.0 FL [facility] nRBC Count 0.0 <1.0 % [facility] NRBC Absolute 0.00 <0.10 K/[facility] Bands Relative 60.3 % [facility] Lymphocyte Realative Percent 21.7 % [facility] Monocyte Relative Percent 12.0 % [facility] Eosinophil Relative Percent 3.7 % [facility] Basophils Relative Diff 1.3 % [facility] Immature Granulocytes 1.0 % [facility] Neutrophils Absolute 4.95 1.50 - 7.00 K/[facility] Lymphocytes Absolute 1.78 1.00 - 5.00 [facility] Monocytes Absolute 0.98 0.20 - 1.00 K/[facility] Eosinophil Absolute 0.30 0.00 - 0.50 [facility] Basophil ABS 0.11 0.00 - 0.20 [facility] Immature Grans (Absolute) 0.08(H) 0.00 - 0.03 [facility] 05/29/2024 12:2 5 PM EDT 05/29/2024 3:24 PM EDT us Van Sparks MD LAB BLOOD ORDERABLES Final Re sult [facility] [address] [place] [address] * (ABNORMAL) Urinalysis Reflex Microscopic (05/29/2024 12:25 PM EDT) Specific Exchange 1.011 1.003 - 1.030 [facility] pH Urine 7.0 5.0 - 8.0 pH [facility] LEUKOCYTES, URINE Negative Negative [facility] Nitrite, Urine Negative Negative [facility] Protein, Urine 100(A) <=Trace mg/dL [facility] Glucose Urine 100(A) Negative mg/dL [facility] Ketones, Urine Negative Negative mg/dL [facility] Urobilinogen Urine 1.0 0.2 - 1.0 mg/dL [facility] Bilirubin Urine Negative Negative [facility] Blood Urine Negative Negative [facility] RBC, Urine 2.2 0 - 4 /HPF [facility] WBC, Urine 0.3 0 - 4 /HPF [facility] Squamous Epithelial, Urine 5 0 - 60 /LPF [facility] Bacteria, Urine Negative Negative /HPF [facility] Hyaline Casts, UA 0.0 0 - 3 /LPF [facility] 05/29/2024 12:2 5 PM EDT 05/29/2024 3:21 PM EDT us Van Sparks MD LAB URINE ORDERABLES Final Re sult Performing Organization Address [facility]/ZIP Co de Phone Number [facility] [address] [place] [address] * (ABNORMAL) Vitamin D 25 Hydroxy (05/29/2024 12:25 PM EDT) Vitamin D, 25-OH, Total 20.8(L) 30.0 - 80.0 ng/mL [facility] 05/29/2024 12:2 5 PM EDT 05/29/2024 3:12 PM EDT us Van Sparks MD LAB BLOOD ORDERABLES Final Re sult Performing Organization Address [facility]/ZIP Co de Phone Number [facility] [address] [place] [address] * Uric Acid (05/29/2024 12:25 PM EDT) Uric Acid 5.6 3.7 - 9.2 mg/dL [facility] 05/29/2024 12:2 5 PM EDT 05/29/2024 3:12 PM EDT us Van Sparks MD LAB BLOOD ORDERABLES Final Re sult Performing Organization Address City/[facility]/ZIP Co de Phone Number [facility] [address] [place] [address] * Phosphorus (05/29/2024 12:25 PM EDT) [facility] Phosphorus 3.6 2.5 - 4.5 mg/dL [facility] 05/29/2024 12:2 5 PM EDT 05/29/2024 3:12 PM EDT us Van Sparks MD LAB BLOOD ORDERABLES Final Re sult Performing Organization Address City/[facility]/ZIP Co de Phone Number [facility] [address] [place] [address] * PTH, Intact (05/29/2024 12:25 PM EDT) [facility] PTH 26.6 18.5 - 88.0 pcg/mL [facility] 05/29/2024 12:2 5 PM EDT 05/29/2024 3:12 PM EDT us Van Sparks MD LAB BLOOD ORDERABLES Final Re sult Performing Organization Address [facility] Co de Phone Number [facility] [address] [place] [address] * Magnesium (05/29/2024 12:25 PM EDT) [facility] Magnesium 2.2 1.9 - 2.6 mg/dL [facility] 05/29/2024 12:2 5 PM EDT 05/29/2024 3:12 PM EDT us Van Sparks MD LAB BLOOD ORDERABLES Final Re sult Performing Organization Address [facility] Co de Phone Number [facility] [address] [place] [address] * (ABNORMAL) Comprehensive Metabolic Panel (05/29/2024 12:25 PM EDT) [facility] Sodium 139 133 - 145 mmol/L [facility] Potassium 5.0 3.5 - 5.5 mmol/L [facility] Chloride 106 96 - 110 mmol/L [facility] Bicarbonate (CO2) 28 21 - 32 mmol/L [facility] Anion Gap 5 3 - 11 [facility] Glucose 221(H) 70 - 100 mg/dL [facility] BUN 18 5 - 25 mg/dL [facility] Creatinine Serum 0.72 0.70 - 1.30 mg/dL [facility] eGFR 101 >=60 mL/min/1. 73m2 [facility] Comment:Calculation based on the?Chronic Kidney Disease Epidemiology Collaboration (CKD-EPI) equation refit?without adjustment for race. BUN/Creatinine Ratio 25.0 [facility] Calcium 9.7 8.5 - 10.5 mg/dL [facility] AST (SGOT) 17 10 - 42 unit/L [facility] ALT (SGPT) 21 10 - 60 unit/L [facility] Alkaline Phosphatase 104 42 - 121 unit/L [facility] Total Protein 7.3 6.0 - 8.0 g/dL [facility] Albumin 3.1(L) 3.2 - 5.0 g/dL [facility] Total Bilirubin 0.3 0.0 - 1.4 mg/dL [facility] 05/29/2024 12:2 5 PM EDT 05/29/2024 3:12 PM EDT us Van Sparks MD LAB BLOOD ORDERABLES Final Re sult [facility] [address] [place] [address] from Last 3 Months Insurance Medicare Medicaid [place] Care Teams Driller'S Assistant Relationship Specialty Start Date End Date Silvino Lowery MD [address] [place] [address] [phone] PCP - General Internal Medicine 05/31/23
--- OUTSIDE RECORDS SUMMARY | 2024-05-29 18:07 | XMS_ITS | Encounter Summary ---
Author Organization [facility] Address [address] [place] [phone] Phone Care Team Providers Care Drawing Frame Tender Name Role Phone Silvino Lowery MD Primary Care Provider [phone] Encounter Details Date Type Department Care Team (Late Contact Info) Description 05/29/2024 Orders Only [facility] [address] [phone] Van Sparks MD [address] [place] [phone] Social History Tobacco Use Types Packs/Day Years Used Date Smoking Tobacco: Former Cigarettes 1 2 0 02/15/1988 - 02/14/1990 Smokeless Tobacco: Never Alcohol Use Standard Drinks/Week Comments Yes 0 (1 standard drink = 0.6 oz pur e alcohol) 2 glasses of wine once a week Sex and Gender Information Value Date Recorded Sex Assigned at Not on file Legal Sex Male 4:51 PM EST Gender Identity Not on file Sexual Orientation Not on file documented as of this encounter Plan of Treatment Upcoming Encounters Date Type Department Care Team (Late st Contact Info) Description 07/23/2024 11:20 AM EDT Office Visit [facility] [address] [phone] Van Sparks MD [address] [place] [phone] documented as of this encounter Procedures Procedure Name Priority Date/Time Associated Diagnosis Comments CBC WITH AUTO DIFFERENTIAL Routine 05/29/2024 12:25 PM EDT URINALYSIS RFX MICROSCOPIC Routine 05/29/2024 12:25 PM EDT VITAMIN D 25 HYDROXY Routine 05/29/2024 12:25 PM EDT URIC ACID Routine 05/29/2024 12:25 PM EDT PHOSPHATE ( PHOSPHORUS) Routine 05/29/2024 12:25 PM EDT PTH, INTACT Routine 05/29/2024 12:25 PM EDT MAGNESIUM Routine 05/29/2024 12:25 PM EDT COMPREHENSIVE METABOLIC PANEL Routine 05/29/2024 12:25 PM EDT documented in this encounter Results * (ABNORMAL) Vitamin D 25 Hydroxy (05/29/2024 12:25 PM EDT) Vitamin D, 25-OH, Total 20.8(L) 30.0 - 80.0 ng/mL [facility] 05/29/2024 12:2 5 PM EDT 05/29/2024 3:12 PM EDT us Van Sparks MD LAB BLOOD ORDERABLES Final Re sult [facility] [address] [place] [address] * PTH, Intact (05/29/2024 12:25 PM EDT) PTH 26.6 18.5 - 88.0 pcg/mL [facility] 05/29/2024 12:2 5 PM EDT 05/29/2024 3:12 PM EDT us Van Sparks MD LAB BLOOD ORDERABLES Final Re sult [facility] [address] [place] [address] * (ABNORMAL) Urinalysis Reflex Microscopic (05/29/2024 12:25 PM EDT) Specific Lawrence 1.011 1.003 - 1.030 [facility] pH Urine 7.0 5.0 - 8.0 pH [facility] LEUKOCYTES, URINE Negative Negative [facility] Nitrite, Urine Negative Negative [facility] Protein, Urine 100(A) <=Trace mg/dL [facility] Glucose Urine 100(A) Negative mg/dL [facility] Ketones, Urine Negative Negative mg/dL [facility] Urobilinogen Urine 1.0 0.2 - 1.0 mg/dL [facility] Bilirubin Urine Negative Negative [facility] Blood Urine Negative Negative [facility] RBC, Urine 2.2 0 - 4 /HPF [facility] WBC, Urine 0.3 0 - 4 /HPF [facility] Squamous Epithelial, Urine 5 0 - 60 /LPF [facility] Bacteria, Urine Negative Negative /HPF [facility] Hyaline Casts, UA 0.0 0 - 3 /LPF [facility] 05/29/2024 12:2 5 PM EDT 05/29/2024 3:21 PM EDT Van Sparks MD LAB URINE ORDERABLES Final Re sult [facility] [address] [place] [address] * (ABNORMAL) Comprehensive Metabolic Panel (05/29/2024 12:25 PM EDT) Sodium 139 133 - 145 mmol/L [facility] Potassium 5.0 3.5 - 5.5 mmol/L [facility] Chloride 106 96 - 110 mmol/L [facility] Bicarbonate (CO2) 28 21 - 32 mmol/L [facility] Anion Gap 5 3 - 11 [facility] Glucose 221(H) 70 - 100 mg/dL [facility] BUN 18 5 - 25 mg/dL [facility] Creatinine Serum 0.72 0.70 - 1.30 mg/dL [facility] eGFR 101 >=60 mL/min/1. 73m2 [facility] Comment:Calculation based on the?Chronic Kidney Disease Epidemiology Collaboration (CKD-EPI) equation refit?without adjustment for race. BUN/Creatinine Ratio 25.0 [facility] Calcium 9.7 8.5 - 10.5 mg/dL [facility] AST (SGOT) 17 10 - 42 unit/L [facility] ALT (SGPT) 21 10 - 60 unit/L [facility] Alkaline Phosphatase 104 42 - 121 unit/L [facility] Total Protein 7.3 6.0 - 8.0 g/dL [facility] Albumin 3.1(L) 3.2 - 5.0 g/dL [facility] Total Bilirubin 0.3 0.0 - 1.4 mg/dL [facility] 05/29/2024 12:2 5 PM EDT 05/29/2024 3:12 PM EDT us Van Sparks MD LAB BLOOD ORDERABLES Final Re sult Performing Organization Address [facility]/ZIP Co de Phone Number [facility] [address] [place] [address] * Uric Acid (05/29/2024 12:25 PM EDT) Uric Acid 5.6 3.7 - 9.2 mg/dL [facility] 05/29/2024 12:2 5 PM EDT 05/29/2024 3:12 PM EDT us Van Sparks MD LAB BLOOD ORDERABLES Final Re sult Performing Organization Address [facility] Co de Phone Number [facility] [address] [place] [phone] * Phosphorus (05/29/2024 12:25 PM EDT) Phosphorus 3.6 2.5 - 4.5 mg/dL [facility] 05/29/2024 12:2 5 PM EDT 05/29/2024 3:12 PM EDT us Van Sparks MD LAB BLOOD ORDERABLES Final Re sult Performing Organization Address [facility] Co de Phone Number [facility] [address] [place] [address] * Magnesium (05/29/2024 12:25 PM EDT) Magnesium 2.2 1.9 - 2.6 mg/dL [facility] 05/29/2024 12:2 5 PM EDT 05/29/2024 3:12 PM EDT us Van Sparks MD LAB BLOOD ORDERABLES Final Re sult Performing Organization Address City/[facility]/ZIP Co de Phone Number [facility] [address] [place] [address] * (ABNORMAL) CBC auto differential (05/29/2024 12:25 PM EDT) WBC 8.2 4.8 - 10.8 K/[facility] RBC 3.90(L) 4.50 - 5.50 M/[facility] Hgb 11.4(L) 13.5 - 17.5 g/dL [facility] Hematocrit 36.6(L) 42.0 - 54.0 % [facility] MCV 93.6 79.0 - 98.0 FL [facility] MCH 29.2 27.0 - 32.0 pcg [facility] MCHC 31.1(L) 32.0 - 37.0 g/dL [facility] RDW 14.0 11.0 - 15.0 % [facility] Platelets 643(H) 130 - 400 K/[facility] MPV 9.5 7.0 - 11.0 [facility] nRBC Count 0.0 <1.0 % [facility] NRBC Absolute 0.00 <0.10 K/[facility] Bands Relative 60.3 % [facility] Lymphocyte Realative Percent 21.7 % [facility] Monocyte Relative Percent 12.0 % [facility] Eosinophil Relative Percent 3.7 % [facility] Basophils Relative Diff 1.3 % [facility] Immature Granulocytes 1.0 % [facility] Neutrophils Absolute 4.95 1.50 - 7.00 K/[facility] Lymphocytes Absolute 1.78 1.00 - 5.00 K/[facility] Monocytes Absolute 0.98 0.20 - 1.00 K/[facility] Eosinophil Absolute 0.30 0.00 - 0.50 K/[facility] Basophil ABS 0.11 0.00 - 0.20 K/[facility] Immature Grans (Absolute) 0.08(H) 0.00 - 0.03 K/[facility] 05/29/2024 12:2 5 PM EDT 05/29/2024 3:24 PM EDT us Van Sparsk MD LAB BLOOD ORDERABLES Final Re sult [facility] [address] [place] [address] documented in this encounter Visit Diagnoses Not on filedocumented in this encounter Care Teams Drawing Frame Tender Relationship Specialty Start Date End Date Silvino Lowery MD [address] [place] [phone] PCP - General Internal Medicine 05/31/23 documented as of this encounter
--- OUTSIDE RECORDS SUMMARY | 2024-05-29 18:08 | XMS_ITS | Clinical Summary ---
Author Organization [facility] [address] [place] [address] [place] [phone] Phone Care Team Providers Care Risk Management Director Name Role Phone Chuckie Naylor MD Primary Care Provider Allergies No known active allergies Medications gabapentin (NEURONTIN) 800 mg tablet Take 1 Tablet by mouth 4 times daily. 11/09/19 24 Active blood-glucose transmitter (DEXCOM G6 TRANSMITTER MISC) Use as directed 09/22/19 24 Active ammonium lactate (AMLACTIN) 12 % cream APPLY THIN LAYER TWICE DAILY TO FEET NEEDED FOR DRY SKIN 03/21/19 24 Active blood-glucose meter,continuous (Dexcom G6 Sheet Sewer) misc Use as directed 03/21/19 24 Active latanoprost (XALATAN) 0.005 % ophthalmic solution INSTILL 1 DROP INTO BOTH EYES NIGHTLY 09/14/19 22 Active timolol (TIMOPTIC) 0.5 % ophthalmic solution INSTILL 1 DROP IN BOTH EYES IN THE MORNING 10/02/19 22 Active Glucagon HCl, rDNA, (Glucagon Emergency Kit, human,) 1 mg injection Inject 1 Kit into the muscle once for 1 dose. 06/26/19 21 Active sildenafiL (VIAGRA) 100 mg tablet TAKE 1/2 TO 1 TABLET BY MOUTH 1 HOUR BEFORE NEEDED 4 tablet 5 01/23/20 24 Active losartan (COZAAR) 50 mg tablet TAKE 1 TABLET BY MOUTH EVERY DAY 90 tablet 1 02/06/20 24 Active urea (Ureacin-20) 20 % cream Apply topically at bedtime. 85 g 3 02/21/19 25 Active blood-glucose transmitter (Dexcom G6 Transmitter) deviceIndications:Di abetic peripheral neuropathy (CMS/HCC V24, CMS/HCC V28) Use as directed. 1 each 3 03/01/19 25 Active blood-glucose sensor (Dexcom G6 Sensor) deviceIndications:Di abetic peripheral neuropathy ([facility] V24, [facility] V28) Box = Kit = EA3 sensors per 1 month supply--Use as directed 3 kit 11 03/01/19 25 Active amLODIPine (NORVASC) 10 mg tablet TAKE 1 TABLET BY MOUTH EVERY DAY 90 tablet 03/09/19 25 Active Additional Information Patient taking differently: 5 mgoral Daily, Reported on 05/08/2024 BD Aria 2nd Gen Pen Needle 32 gauge x 5/32 needleIndications:Ty pe 2 diabetes mellitus with diabetic microalbuminuria, with long-term current use of insulin ([facility] V24, [facility] V28) USE 4 TIMES DAILY. 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 Remove & discard patch within 12 hours or as directed by . 30 each 02/21/19 25 025 Active Problems Problem Noted Date Diagnosed Date Malignant neoplasm of urinar y bladder ([facility] V24, [facility] V28) 08/29/2023 Other psoriasis 02/05/2022 Diabetic peripheral neuropathy ([facility] V24, [facility] V28) 02/01/2022 Diabetic skin ulcer ([facility] V24, [facility] V28) 1 04/04/2021 Overview (01/05/2024): 01/13/2022 [facility] Claudication ([facility] V24) 11/11/2020 Overview (01/05/2024): PVCA Inflammatory arthritis 03/19/2013 Overview (01/05/2024): Onset 2012. Asymmetric RF and CCP Ab negative. Lyme Ab negative Diabetes mellitus with micro albuminuria ([facility] V24, [facility] V28) 12/07/2011 Overview (01/05/2024): CTS. DM (diabetes mellitus) with peripheral vascular complication ([facility] V24, [facility] V28) 12/07/2011 Overview (01/05/2024): ED. Type 1 diabetes mellitus wit h eye manifestations ([facility] V24, [facility] V28) 12/07/2011 Overview (01/05/2024): Proliferative retinopathy- right. HTN (hypertension) 07/29/2011 DM (diabetes mellitus), type 1 with renal complications ([facility] V24, [facility] V28) 07/29/2011 DM (diabetes mellitus), type 1 with ophthalmic complications ([facility] V24, [facility] V28) 01/04/2011 Diabetic retinopathy ([facility] V24, [facility] V28) 06/11/2010 Erectile dysfunction 09/08/2009 Carpal tunnel syndrome 08/05/2005 Congenital hereditary muscul ar dystrophy ([facility] V24, [facility] V28) 08/05/2005 Proteinuria 08/05/2005 Traumatic pneumohemothorax 08/05/2005 Overview (01/05/2024): IMO update Encounters Date Type Department Care Team Description 05/08/2024 3:30 PM EDT Office Visit Adult Medicine [address] [phone] Chuckie Naylor MD Type 1 diabetes mellitus with nephropathy ([facility] V24, [facility] V28) (Primary Dx); Hypertension, unspecified type; Diabetes mellitus with microalbuminuria ([facility] V24, [facility] V28); Screening for prostate cancer 03/29/2024 2:00 PM EST Office Visit Orthopedic Surgery [address] [phone] Jayesh Johnson DPWagner Non-pressure chronic ulcer of left ankle with fat layer exposed ([facility] V24, [facility] V28) (Primary Dx); Peripheral venous insufficiency; Type II diabetes mellitus with peripheral circulatory disorder ([facility] V24, [facility] V28); Diabetic mononeuropathy simplex ([facility] V24, [facility] V28); Dermatophytosis of nail 03/22/[address] [phone] Scarlet Corcoran MD call from pharmacy 03/13/[address] [phone] Scarlet Corcoran MD Medication Problem 03/01/2024 2:45 PM EST Office Visit [address] [phone] Scarlet Corcoran MD Diabetes mellitus with microalbuminuria ([facility] V24, [facility] V28) (Primary Dx); Diabetic peripheral neuropathy ([facility] V24, [facility] V28) from Last 3 Months Immunizations Name Administration Dates Next Due Pneumococcal polysaccharide 23 valent (Pneumovax 23) 2yo and older 06/08/2007 Tdap Tetanus diptheria acell ular pertussis (Boostrix; Adacel) 7yo and older 03/17/2022,06/29/2007 Surgical History Surgery Date Site/Laterality Comments OTHER SURGICAL HISTORY PROCEDURE: ---- OTHER ----; COMMENT: pneumothorax - accident water skiing Medical History Medical History Date Comments Type I (juvenile type) diabe pradeep mellitus without mention of complication, uncontrolled 08/05/2005 DX:Type I (juvenile type) d iabetes mellitus without mention of complication, uncontrolled Proteinuria 08/05/2005 DX:Proteinuria Traumatic pneumohemothorax w ithout mention of open wound into thorax 08/05/2005 DX:Traumatic pneumoh emothorax without mention of open wound into thorax Carpal tunnel syndrome 08/05/2005 DX:Carpal tunnel syndrome Congenital hereditary muscul ar dystrophy ([facility] V24, [facility] V28) 08/05/2005 DX:Congenital her editary muscular dystrophy (HCC) HTN (hypertension) 07/29/2011 DX:HTN (hyper tension) History of rectal bleeding DX:Hi story of rectal bleeding Diabetic peripheral neuropat hy ([facility] V24, [facility] V28) 02/01/2022 DX:Diabetic peripheral neur opathy (HCC) Diabetic skin ulcer ([facility] V24, [facility] V28) 02/01/2022 DX:Diabetic skin ulcer (HCC) ; COMMENT: 01/13/2022 Fran Plascencia Podiatry Family History Medical History Relation Name Comments No Known Problems Daughter Diabetes Father CAD No Known Problems Maternal Grandfather Other: muscular dystrophy Maternal Grandmother Other: muscular dystrophy Mother No Known Problems Paternal Grandfather Arthritis Paternal Grandmother HTN, DM Diabetes Sister Relation Name Status Comments Daughter Alive Father Maternal Grandfather Maternal Grandmother Mother Paternal Grandfather Paternal Grandmother Sister Alive Social History Tobacco Use Types Packs/Day Years Used Date Smoking Tobacco: Former Cigarettes 1 2 0 02/15/1988 - 02/14/1990 Smokeless Tobacco: Never Tobacco Cessation:Counseling Given: Not Answered Alcohol Use Standard Drinks/Week Comments Yes 0 (1 standard drink = 0.6 oz pur e alcohol) Sex and Gender Information Value Date Recorded Sex Assigned at Not on file Legal Sex Male 9:39 PM EST Gender Identity Not on file Sexual Orientation Not on file Obstetrics History Last Filed Vital Signs Vital Sign Reading Time Taken Comments Blood Pressure 141/67 05/08/2024 3:47 PM EDT Pulse 82 05/08/2024 3:47 PM EDT Temperature 36.8 ??C (98.3 ??F) 05/08/2024 3:47 PM ED T Respiratory Rate 15 05/08/2024 3:47 PM EDT Oxygen Saturation 98% 03/01/2024 3:01 PM EST Inhaled Oxygen Concentration - - Weight 85.1 kg (187 lb 9.6 oz) 05/08/2024 3:47 P M EDT Height 177.8 cm (5' 10 ) 05/08/2024 3:47 PM EDT Body Mass Index 26.92 05/08/2024 3:47 PM EDT Plan of Treatment Upcoming Encounters Date Type Department Care Team (Late st Contact Info) Description 05/31/2024 3:00 PM EDT Office Visit Adult Medicine [address] [phone] Chuckie Naylor MD [address] [place] [address] 07/05/2024 2:30 PM EDT Office Visit Endocrinology [address] [phone] Scarlet Corcoran MD [address] [place] [address] Health Maintenance Due Date Last Done Comments Zoster Vaccines (1 of 2) 1977 Pneumococcal Vaccine: 50+ Years (2 of 2 - PCV) 06/07/2008 06/08/2007 Pneumococcal Vaccine: Pediatrics (0 to 5 Years) and At-Risk Patients (6 to 64 Years) (2 of 2 - PCV) 06/07/2008 06/08/2007 RSV Immunization Adult Patients (1 - Risk 60-74 years 1-dose series) 2018 COVID-19 Vaccine (2 - Jansse n risk series) 10/31/2020 10/03/2020 Abdominal Aortic Aneurysm (AAA) Screen 01/23/2022 Medicare Annual Wellness Visit 01/23/2022 Social Influencers of Health Screening 01/23/2022 Falls Risk Assessment 10/08/2023 Diabetes: Blood Sugar Contro l Test (HGBA1C) 11/26/2023 05/27/2023 Diabetes: Annual Foot Exam 05/01/2024 05/02/2023 Depression Screening 05/22/2024 05/23/2023 Diabetes: Annual Urine Albumin-Creatinine Ratio (uACR) 05/26/2024 05/27/2023 Diabetes: Annual GFR (Glomerular Filtration Rate) 06/27/2024 05/29/2024, 06/28/2023, 06/28/2023 Hypertension/CHF/CAD Annual BMP Blood Test 06/27/2024 05/29/2024, 06/28/2023, 06/28/2023 Influenza Vaccine (Season Ended) 2024 Diabetes: Annual Retina Eye Exam 04/25/2025 04/25/2024 Cholesterol Screening (Lipid Panel) 05/26/2028 05/29/2024, 05/27/2023 Colorectal Cancer Screening: Colonoscopy 03/09/2031 03/09/2021 DTaP,Tdap,and Td Vaccines (3 - Td or Tdap) 03/17/2032 03/17/2022, 06/29/2007 Hepatitis C Screening Completed 03/15/2013 HIB Vaccines Aged Out No longer eligi ble based on patient's age to complete this topic HPV Vaccines Aged Out No longer eligi ble based on patient's age to complete this topic Hepatitis A Vaccines Aged Out No long er eligible based on patient's age to complete this topic Hepatitis B Vaccines Aged Out No long er eligible based on patient's age to complete this topic IPV Vaccines Aged Out No longer eligi ble based on patient's age to complete this topic MMR Vaccines Aged Out No longer eligi ble based on patient's age to complete this topic Meningococcal ACWY Vaccine Aged Out N o longer eligible based on patient's age to complete this topic Meningococcal B Vaccine Aged Out No l onger eligible based on patient's age to complete this topic RSV Immunization Patients Under 20 months Aged Out No longer eligible b ased on patient's age to complete this topic Varicella Vaccines Aged Out No longer eligible based on patient's age to complete this topic Procedures Procedure Name Priority Date/Time Associated Diagnosis Comments CBC WITH AUTO DIFFERENTIAL Routine 05/29/2024 12:25 PM EDT Chronic kidney disease, stage I Diabetic glomerulopathy (CMS/HCC V24, CMS/HCC V28) Essential hypertension, malignant URINALYSIS WITH REFLEX MICROSCOPIC Routine 05/29/2024 12:25 PM EDT Chronic kidney disease, stage I Diabetic glomerulopathy (CMS/HCC V24, CMS/HCC V28) Essential hypertension, malignant LIPID PANEL WITH REFLEX TO DIRECT LDL Routine 05/29/2024 12:25 PM EDT Type 1 diabetes mellitus with nephropathy (CMS/HCC V24, CMS/HCC V28) Diabetes mellitus with microalbuminuria (CMS/HCC V24, CMS/HCC V28) COMPREHENSIVE METABOLIC PANEL Routine 05/29/2024 12:25 PM EDT Chronic kidney disease, stage I Diabetic glomerulopathy (CMS/HCC V24, CMS/HCC V28) Essential hypertension, malignant URIC ACID Routine 05/29/2024 12:25 PM EDT Chronic kidney disease, stage I Diabetic glomerulopathy (CMS/HCC V24, CMS/HCC V28) Essential hypertension, malignant MAGNESIUM Routine 05/29/2024 12:25 PM EDT Chronic kidney disease, stage I Diabetic glomerulopathy (CMS/HCC V24, CMS/HCC V28) Essential hypertension, malignant PHOSPHORUS Routine 05/29/2024 12:25 PM EDT Chronic kidney disease, stage I Diabetic glomerulopathy (CMS/HCC V24, CMS/HCC V28) Essential hypertension, malignant PARATHYROID HORMONE INTACT Routine 05/29/2024 12:25 PM EDT Chronic kidney disease, stage I Diabetic glomerulopathy (CMS/HCC V24, CMS/HCC V28) Essential hypertension, malignant VITAMIN D 25 HYDROXY Routine 05/29/2024 12:25 PM EDT Chronic kidney disease, stage I Diabetic glomerulopathy (CMS/HCC V24, CMS/HCC V28) Essential hypertension, malignant Vitamin D deficiency disease CBC AND DIFFERENTIAL Routine 05/29/2024 12:25 PM EDT Chronic kidney disease, stage I Diabetic glomerulopathy (CMS/HCC V24, CMS/HCC V28) Essential hypertension, malignant URINALYSIS WITH REFLEX MICROSCOPIC Routine 05/29/2024 12:25 PM EDT Chronic kidney disease, stage I Diabetic glomerulopathy (CMS/HCC V24, CMS/HCC V28) Essential hypertension, malignant PROSTATE SPECIFIC ANTIGEN SCREEN Routine 05/29/2024 12:25 PM EDT Screening for prostate cancer URINE ALBUMIN CREATININE RATIO Routine 05/27/2023 HEMOGLOBIN A1C Routine 05/27/2023 DEPRESSION SCREENING Routine 05/23/2023 DIABETES FOOT EXAM Routine 05/02/2023 COLONOSCOPY Routine 03/09/2021 HEPATITIS C SCREENING Routine 03/15/2013 from Last 3 Months or Most Recently Relevant to Health Maintenance Results * Prostate specific antigen screen (05/29/2024 12:25 PM EDT) PSA 2.00 0.00 - 4.00 ng/mL LAB CHEMISTRY METHOD 05/29/2024 4:45 PM EDT [facility] Blood Venous blood specimen / Unknown Venipuncture / Unknown 05/29/2024 12:25 PM EDT 05/29/2024 12:25 PM EDT Narrative [facility] - 05/29/2024 4:45 PM EDT The Siemens Advia Centaur Chemiluminescent Immunoassay is used. Results obtained with different assay methods or kits cannot be used interchangeably. Results cannot be interpreted as absolute evidence of the presence or absence of malignant disease. us Chuckie Naylor MD LAB BLOOD ORDERABLES F inal Result [facility] [address] [place] [address], [place] [phone] * (ABNORMAL) Urinalysis with reflex microscopic (05/29/2024 12:25 PM EDT) Specific [place] Urine 1.011 1.003 - 1.030 LAB URINALYSIS - AUTOMATED METHOD 05/29/2024 4:07 PM [facility] pH, Urine 7.0 5.0 - 8.0 pH LAB URINALYSIS - AUTOMATED METHOD 05/29/2024 4:07 PM [facility] Leukocytes, Urine Negative Negative LAB URINALYSIS - AUTOMATED METHOD 05/29/2024 4:07 PM [facility] Nitrite, Urine Negative Negative LAB URINALYSIS - AUTOMATED METHOD 05/29/2024 4:07 PM [facility] Protein, Urine 100(A) <=Trace mg/dL LAB URINALYSIS - AUTOMATED METHOD 05/29/2024 4:07 PM [facility] Glucose, Urine 100(A) Negative mg/dL LAB URINALYSIS - AUTOMATED METHOD 05/29/2024 4:07 PM [facility] Ketones, Urine Negative Negative mg/dL LAB URINALYSIS - AUTOMATED METHOD 05/29/2024 4:07 PM [facility] Urobilinogen, Urine 1.0 0.2 - 1.0 mg/dL LAB URINALYSIS - AUTOMATED METHOD 05/29/2024 4:07 PM [facility] Bilirubin, Urine Negative Negative LAB URINALYSIS - AUTOMATED METHOD 05/29/2024 4:07 PM [facility] Blood, Urine Negative Negative LAB URINALYSIS - AUTOMATED METHOD 05/29/2024 4:07 PM [facility] RBC, Urine 2.2 0 - 4 /HPF LAB URINALYSIS - AUTOMATED METHOD 05/29/2024 4:07 PM EDT [facility] WBC, Urine 0.3 0 - 4 /HPF LAB URINALYSIS - AUTOMATED METHOD 05/29/2024 4:07 PM EDT [facility] Squamous Epithelial, Urine 5 0 - 60 /LPF LAB URINALYSIS - AUTOMATED METHOD 05/29/2024 4:07 PM [facility] Bacteria, Urine Negative Negative /HPF LAB URINALYSIS - AUTOMATED METHOD 05/29/2024 4:07 PM [facility] Hyaline Casts, Urine 0.0 0 - 3 /LPF LAB URINALYSIS - AUTOMATED METHOD 05/29/2024 4:07 PM [facility] Urine Urine specimen obtained by clean catch procedure / Unknown Non-blood Collection / Unknown 05/29/2024 12:25 PM EDT 05/29/2024 12:25 PM EDT us Van Sparks MD LAB URINE ORDERABLES Final Result [facility] [address] [place] [address], * Lipid panel with reflex to direct LDL (05/29/2024 12:25 PM EDT) Cholesterol 122 0 - 200 mg/dL LAB CHEMISTRY METHOD 05/29/2024 3:46 PM T [facility] Triglycerides 104 0 - 150 mg/dL LAB CHEMISTRY METHOD 05/29/2024 3:46 PM T [facility] HDL 43 >=40 mg/dL LAB CHEMISTRY METHOD 05/29/2024 3:46 PM [facility] LDL Calculated 58 0 - 100 mg/dL LAB CHEMISTRY METHOD 05/29/2024 3:46 PM [facility] VLDL Cholesterol Oliverio 20.8 mg/dL LAB CHEMISTRY METHOD 05/29/2024 3:46 PM EDT [facility] Non HDL Chol. (LDL+VLDL) 79 <145 mg/dL LAB CHEMISTRY METHOD 05/29/2024 3:46 PM EDT [facility] Chol/HDL Ratio 2.8 0.0 - 4.4 LAB CHEMISTRY METHOD 05/29/2024 3:46 PM EDT [facility] Blood Venous blood specimen / Unknown Venipuncture / Unknown 05/29/2024 12:25 PM EDT 05/29/2024 12:25 PM EDT us Chuckie Naylor MD LAB BLOOD ORDERABLES F inal Result [facility] [address] [place] [address], [place] [phone] * (ABNORMAL) CBC auto differential (05/29/2024 12:25 PM EDT) WBC 8.2 4.8 - 10.8 K/mcL LAB HEMETOLOGY METHOD 05/29/2024 3:41 PM EDT [facility] RBC 3.90(L) 4.50 - 5.50 M/mcL LAB HEMETOLOGY METHOD 05/29/2024 3:41 PM EDT [facility] Hemoglobin 11.4(L) 13.5 - 17.5 g/dL LAB HEMETOLOGY METHOD 05/29/2024 3:41 PM EDT [facility] Hematocrit 36.6(L) 42.0 - 54.0 % LAB HEMETOLOGY METHOD 05/29/2024 3:41 PM EDT [facility] MCV 93.6 79.0 - 98.0 FL LAB HEMETOLOGY METHOD 05/29/2024 3:41 PM EDT [facility] MCH 29.2 27.0 - 32.0 pcg LAB HEMETOLOGY METHOD 05/29/2024 3:41 PM EDT [facility] MCHC 31.1(L) 32.0 - 37.0 g/dL LAB HEMETOLOGY METHOD 05/29/2024 3:41 PM [facility] RDW 14.0 11.0 - 15.0 % LAB HEMETOLOGY METHOD 05/29/2024 3:41 PM [facility] Platelets 643(H) 130 - 400 K/mcL LAB HEMETOLOGY METHOD 05/29/2024 3:41 PM [facility] MPV 9.5 7.0 - 11.0 FL LAB HEMETOLOGY METHOD 05/29/2024 3:41 PM [facility] NRBC 0.0 <1.0 % LAB HEMETOLOGY METHOD 05/29/2024 3:41 PM [facility] NRBC Absolute 0.00 <0.10 K/mcL LAB HEMETOLOGY METHOD 05/29/2024 3:41 PM [facility] Neutrophils Relative 60.3 % LAB HEMETOLOGY METHOD 05/29/2024 3:41 PM [facility] Lymphocytes Relative 21.7 % LAB HEMETOLOGY METHOD 05/29/2024 3:41 PM [facility] Monocytes Relative 12.0 % LAB HEMETOLOGY METHOD 05/29/2024 3:41 PM [facility] Eosinophils Relative 3.7 % LAB HEMETOLOGY METHOD 05/29/2024 3:41 PM [facility] Basophils Relative 1.3 % LAB HEMETOLOGY METHOD 05/29/2024 3:41 PM [facility] Immature Granulocytes Relative 1.0 % LAB HEMETOLOGY METHOD 05/29/2024 3:41 PM [facility] Neutrophils Absolute 4.95 1.50 - 7.00 K/mcL LAB HEMETOLOGY METHOD 05/29/2024 3:41 PM EDT [facility] Lymphocytes Absolute 1.78 1.00 - 5.00 K/mcL LAB HEMETOLOGY METHOD 05/29/2024 3:41 PM EDT [facility] Monocytes Absolute 0.98 0.20 - 1.00 K/mcL LAB HEMETOLOGY METHOD 05/29/2024 3:41 PM EDT [facility] Eosinophils Absolute 0.30 0.00 - 0.50 K/[facility] LAB HEMETOLOGY METHOD 05/29/2024 3:41 PM EDT [facility] Basophils Absolute 0.11 0.00 - 0.20 K/mcL LAB HEMETOLOGY METHOD 05/29/2024 3:41 PM EDT [facility] Immature Granulocytes Absolute 0.08(H) 0.00 - 0.03 K/[facility] LAB HEMETOLOGY METHOD 05/29/2024 3:41 PM EDT [facility] Blood Venous blood specimen / Unknown Venipuncture / Unknown 05/29/2024 12:25 PM EDT 05/29/2024 12:25 PM EDT us Van Sparks MD LAB BLOOD ORDERABLES Final Result [facility] [address] [place] [address], * (ABNORMAL) Vitamin D 25 hydroxy (05/29/2024 12:25 PM EDT) Vit D, 25-Hydroxy 20.8(L) 30.0 - 80.0 ng/mL LAB CHEMISTRY METHOD 05/29/2024 4:45 PM EDT [facility] Blood Venous blood specimen / Unknown Venipuncture / Unknown 05/29/2024 12:25 PM EDT 05/29/2024 12:25 PM EDT us Van Sparks MD LAB BLOOD ORDERABLES Final Result Performing Organization Address City/[facility]/ZIP Co de Phone Number [facility] [address] [place] [address], [place] [phone] * Uric acid (05/29/2024 12:25 PM EDT) Uric Acid 5.6 3.7 - 9.2 mg/dL LAB CHEMISTRY METHOD 05/29/2024 3:44 PM EDT [facility] Blood Venous blood specimen / Unknown Venipuncture / Unknown 05/29/2024 12:25 PM EDT 05/29/2024 12:25 PM EDT us Van Sparks MD LAB BLOOD ORDERABLES Final Result Performing Organization Address [facility] Co de Phone Number [facility] [address] [place] [address], [place] [phone] * Phosphorus (05/29/2024 12:25 PM EDT) Phosphorus 3.6 2.5 - 4.5 mg/dL LAB CHEMISTRY METHOD 05/29/2024 3:44 PM EDT [facility] Blood Venous blood specimen / Unknown Venipuncture / Unknown 05/29/2024 12:25 PM EDT 05/29/2024 12:25 PM EDT us Van Sparks MD LAB BLOOD ORDERABLES Final Result Performing Organization Address City/[facility]/ZIP Co de Phone Number [facility] [address] [place] [address], [place] [phone] * Parathyroid hormone intact (05/29/2024 12:25 PM EDT) PTH 26.6 18.5 - 88.0 pcg/mL LAB CHEMISTRY METHOD 05/29/2024 4:45 PM EDT [facility] Blood Venous blood specimen / Unknown Venipuncture / Unknown 05/29/2024 12:25 PM EDT 05/29/2024 12:25 PM EDT us Van Sparks MD LAB BLOOD ORDERABLES Final Result [facility] [address] [place] [address], [place] [phone] * Magnesium (05/29/2024 12:25 PM EDT) [facility] Magnesium 2.2 1.9 - 2.6 mg/dL LAB CHEMISTRY METHOD 05/29/2024 3:44 PM EDT [facility] Blood Venous blood specimen / Unknown Venipuncture / Unknown 05/29/2024 12:25 PM EDT 05/29/2024 12:25 PM EDT us Van Sparks MD LAB BLOOD ORDERABLES Final Result Performing Organization Address City/[facility]/ZIP Co de Phone Number [facility] [address] [place] [address], [place] [phone] * (ABNORMAL) Comprehensive metabolic panel (05/29/2024 12:25 PM EDT) [facility] Sodium 139 133 - 145 mmol/L LAB CHEMISTRY METHOD 05/29/2024 3:46 PM EDT [facility] Potassium 5.0 3.5 - 5.5 mmol/L LAB CHEMISTRY METHOD 05/29/2024 3:46 PM EDT [facility] Chloride 106 96 - 110 mmol/L LAB CHEMISTRY METHOD 05/29/2024 3:46 PM EDT [facility] CO2 28 21 - 32 mmol/L LAB CHEMISTRY METHOD 05/29/2024 3:46 PM EDT [facility] Anion Gap 5 3 - 11 LAB CHEMISTRY METHOD 05/29/2024 3:46 PM EDT [facility] Glucose 221(H) 70 - 100 mg/dL LAB CHEMISTRY METHOD 05/29/2024 3:46 PM [facility] BUN 18 5 - 25 mg/dL LAB CHEMISTRY METHOD 05/29/2024 3:46 PM [facility] Creatinine 0.72 0.70 - 1.30 mg/dL LAB CHEMISTRY METHOD 05/29/2024 3:46 PM [facility] eGFR 101 >=60 mL/min/1. 73m2 LAB CHEMISTRY METHOD 05/29/2024 3:46 PM [facility] Comment:Calculation based on the??Chronic Kidney Disease Epidemiology Collaboration (CKD-EPI) equation refit??without adjustment for race. BUN/Creatinine Ratio 25.0 LAB CHEMISTRY METHOD 05/29/2024 3:46 PM [facility] Calcium 9.7 8.5 - 10.5 mg/dL LAB CHEMISTRY METHOD 05/29/2024 3:46 PM [facility] AST (SGOT) 17 10 - 42 unit/L LAB CHEMISTRY METHOD 05/29/2024 3:46 PM [facility] ALT (SGPT) 21 10 - 60 unit/L LAB CHEMISTRY METHOD 05/29/2024 3:46 PM [facility] Alkaline Phosphatase 104 42 - 121 unit/L LAB CHEMISTRY METHOD 05/29/2024 3:46 PM [facility] Total Protein 7.3 6.0 - 8.0 g/dL LAB CHEMISTRY METHOD 05/29/2024 3:46 PM [facility] Albumin 3.1(L) 3.2 - 5.0 g/dL LAB CHEMISTRY METHOD 05/29/2024 3:46 PM [facility] Total Bilirubin 0.3 0.0 - 1.4 mg/dL LAB CHEMISTRY METHOD 05/29/2024 3:46 PM [facility] Blood Venous blood specimen / Unknown Venipuncture / Unknown 05/29/2024 12:25 PM EDT 05/29/2024 12:25 PM EDT Van Sparks MD LAB BLOOD ORDERABLES Final Result [facility] [address] [place] [address], [place] [phone] * Urine Albumin Creatinine Ratio (05/27/2023) [facility] Urine Albumin Creatinine Ratio Abstracted Historical Provider HEALTH MAINTENANCE Final Result * (ABNORMAL) Hemoglobin A1c (05/27/2023) [facility] Hemoglobin A1C 7.7(A) <=6.5 % Blood Venous blood specimen / Unknown Result [facility] Historical Provider LAB BLOOD ORDERABLES Iliana l Result * Depression Screening (05/23/2023) [facility] Depression Screening Abstracted Historical Provider HEALTH MAINTENANCE Final Result * Diabetes Foot Exam (05/02/2023) [facility] Diabetes: Annual Foot Exam Abstracted Result [facility] Historical Provider HEALTH MAINTENANCE Final Result * Colonoscopy (03/09/2021) [facility] Colonoscopy no interpretation , abstracted Anatomical Region Laterality Modality Other Result [facility] Historical Provider HEALTH MAINTENANCE Final Result * Hepatitis C Screening (03/15/2013) [facility] Hepatitis C Screening Abstracted Historical Provider HEALTH MAINTENANCE Final Result from Last 3 Months or Most Recently Relevant to Health Maintenance Insurance MEDICARE MEDICAID - [place] Care Teams Risk Management Director Relationship Specialty Start Date End Date Chuckie Naylor MD [address] [place] [address] PCP - General Internal Medicine 12/02/21
== END 2024-05-29 15:51 | disposition home or self-care (01) ==
LOC: HO.HUSH 14:52
PROVIDERS: PCP Internal Medicine; Visit Provider Urology
DX: C67.9 Malignant neoplasm of bladder, unspecified (principal); G62.9 Polyneuropathy, unspecified; N52.1 Erectile dysfunction due to diseases classified elsewhere
CPT/HCPCS: 99213

== ENCOUNTER → 2024-05-29 14:52 | Outpatient (BNVA) | payer MEDICARE, MEDICAID, SELFPAY | PROVIDERS: PCP Internal Medicine; Visit Provider Urology ==

== ENCOUNTER 2024-06-26 10:01 | Outpatient (AMB) | payer MEDICARE, MEDICAID, SELFPAY ==
--- NOTE | 2024-06-26 10:02 | MHC.OFFVIS ---
Intake Visit Reasons: cysto Intake Note: pt here today for:Cysto allergies:None blood thinner: Aspirin Informatica Required: No Allergies No Known Allergies Allergy (Verified 06/26/24 10:16) HPI Comments Details: Ilir is a pleasant male. He is a patient of Dr. Naylor. He has seen for the following urologic conditions - bladder cancer - erectile dysfunction in setting of diabetes Surveillance cystoscopy q.6 months for 2 years Discussion regarding continued use of TriMix Able to obtain but can not fully maintain erection discussed use of penile constriction ring Information provided Bladder cancer - low-grade - 08/07 TaLG initial Low-grade bladder cancer Initial management with TURBT and single-dose mitomycin C TURBT 08/07 - Ta low grade Cystoscopy 03/10 NAD, 07/08 NAD Erectile dysfunction in setting of diabetes Seen at 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 Hypertension Muscular dystrophy Surgical History Hx of cystoscopy Social History Household Members: Spouse Housing: House Do you presently have visiting nurse or other home services: No Alcohol intake: current Alcohol intake frequency: a few times a month Patient Tobacco Use Status: Former Tobacco user service: No Review of Systems Const Denies chills and Denies fever(s) Card Reports no additional complaints and Denies syncope Resp Denies cough GI Denies abdominal pain and Denies heartburn Reports as per HPI and Denies change in libido Neuro Denies syncope Psych Denies change in libido Endo Denies change in libido Physical Exam Const General: cooperative, healthy appearing, comfortable and no acute distress Orientation/consciousness: patient oriented x3 HEENT Face and sinus: Yes normal facial exam Mouth: moist mucous membranes Neck Neck: Yes normal visual inspection, Yes full ROM and Yes trachea midline Chest Chest palpation & inspection: normal inspection of the chest Resp Effort & Inspection: normal respiratory effort, able to speak in complete sentences and no respiratory distress GI Inspection: Yes normal to inspection Back/Spine/Pelvis Cervical Spine: normal cervical lordosis Thoracic/Lumbar Spine: thoracic and lumbar spine normal to inspection Skin General skin exam: no rashes or lesions noted Neuro General: patient oriented x3, gait normal, tone normal and moves all extremities Extrem General: Yes normal to inspection and Yes capillary refill normal Office Procedures Cystoscopy Consent Discussed risk and benefit or proposed procedure with the patient. Information consent for procedure given to the patient. Discussed technical aspects, risks, benefits and alternatives in full. Addressed all of the patient's questions and concerns regarding the procedure. The patient demonstrated knowledge and understanding. They wish to proceed with this procedure. Preparation The patient was prepped in the usual manner. A principal examiner was present and in the room. Genitalia was prepped with betadine solution in a sterile manner. Lidocaine Jelly 2% was placed into the urethra and 16Fr flexible Olympus cystoscope was inserted into the meatus after adequate lubrication. Procedure Cystoscopy performed using a disposable Urovue digital 16 Taiwanese cystoscope. Meatus circumcised Urethra anterior and posterior urethra normal Prostatic Urethra unremarkable Bladder examination with retroflexion of cystoscope Bladder Orifices normal shape and position Bladder Capacity Normal Trabeculations Grade 0 Cellule Formation None Diverticulum Formation None Mucosal Erythema None Bladder Tumor None [id number] DISPOSABLE SCOPE URO-G FLEXIBLE SCOPE Procedure code (CPT) selection complete Office Meds lidocaine HCl 2 % mucosal jelly in applicator Performing Provider: Leonel Rg MD [facility] Administered by: Ismael Padilla LPN on 06/26/24 10:20 Dose Route Admin Location Dispensed Lot Number Expiration Date Why Not Give Back Route Sales Delivery Driver 10 mL intra-urethral 10 mL nitrofurantoin monohydrate/macrocrystals 100 mg capsule Performing Provider: Leonel Rg MD Performing Location: [facility] Administered by: Ismael Padilla LPN on 06/26/24 10:20 Dose Route Admin Location Dispensed Lot Number Expiration Date ND Route Sales Delivery Driver 100 mg PO 1 cap Assessment & Plan Assessment & Plan (1) Erectile dysfunction associated with type 2 diabetes mellitus: Code(s): E11.69 - Type 2 diabetes mellitus with other specified complication; N52.1 - Erectile dysfunction due to diseases classified elsewhere Category: Medical Plan Six-month follow-up cystoscopy Orders: Orders FISH Bladder Cancer 06/26/24 C67.9 - Malignant neoplasm of bladder, unspecified AMB Cystoscopy 06/26/24 C67.9 - Malignant neoplasm of bladder, unspecified, R31.0 - Gross hematuria Patient Instructions: This note is constructed using voice recognition software. While every effort has been made to ensure accuracy casting trucker errors may have been included. Imaging studies, laboratory and physical exam results were discussed and reviewed in detail. No major barriers to patient understanding were identified. An opportunity to ask questions regarding the treatment plan was provided. All questions were answered. The patient expressed understanding and agreement with the above treatment plan. The patient is aware they should contact our office by phone for worsening of their current condition or the appearance of new urologic symptoms. Compliance is encouraged with any medications and followup testing that is ordered. It is a privilege to participate in the urologic care of your patient. If you have any questions or concerns regarding treatment for the above conditions, or other urologic issues, please do not hesitate to contact me. The office telephone contact is [phone]. Sincerely, Dr Leonel Rg MD, [facility] - Urology Compassionate Specialist Care for the Genitourinary System Coding Level of Care Code Est Pt Level 3 (12505) Complex EM visit Add On G2211 Diagnoses Erectile dysfunction associated with type 2 diabetes mellitus E11.69; N52.1 CPT Codes Cystoscopy - CPT: 61349-[id number] ([id number])
--- OUTSIDE RECORDS SUMMARY | 2024-06-26 10:55 | XMS_ITS | Clinical Summary ---
Author Organization [facility] Address [address] [address] Phone Care Team Providers Care Legal Intern Name Role Phone Silvino Lowery MD Primary Care Provider Allergies No known active allergies Medications atorvastatin [...] Active Continuous Glucose Sensor (Dexcom G6 Sensor) [facility] [place] DIRECTED 4 Active Aspirin 81 MG [...] time each day 90 tablet 3 4 Active amLODIPine (NORVASC) 5 MG tablet Take 1 tablet (5 mg total) by mouth 1 (one) time each day 90 tablet 3 Active Active Problems Problem Noted Date Diagnosed Date Stage 1 chronic kidney disease 05/31/2023 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/31/2023 Proteinuria, not otherwise specified 05/31/2023 Hypertension 05/31/2023 Muscular dystrophy 05/31/2023 Peripheral arterial occlusive disease 05/31/2023 Diabetic peripheral neuropathy 02/01/2022 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/2010 Encounters Date Type Department Care Team Description 05/29/2024 Orders Only [facility] [address] [facility] [address] [place] [address] Van Sparks MD from Last 3 [...] Office Visit [facility] [address] [address] Van Sparks MD [address] [address] Health Maintenance Due Date Last [...] Procedure Name Priority Date/Time Associated Diagnosis Comments PROTEIN / CREATININE RATIO, URINE Routine 05/29/2024 12:25 PM EDT VITAMIN D [...] PM EDT) WBC 8.2 4.8 - 10.8 K/[facility] RBC 3.90(L) 4.50 - 5.50 M/[facility] Hgb 11.4(L) 13.5 - 17.5 g/dL [facility] Hematocrit 36.6(L) 42.0 - 54.0 % [facility] MCV 93.6 79.0 - 98.0 FL [facility] MCH 29.2 27.0 - 32.0 pcg [facility] MCHC 31.1(L) 32.0 - 37.0 g/dL [facility] RDW 14.0 11.0 - 15.0 % [facility] Platelets 643(H) 130 - 400 K/[facility] MPV 9.5 7.0 - 11.0 [facility] nRBC Count 0.0 <1.0 % [facility] NRBC Absolute 0.00 <0.10 [facility] Bands Relative 60.3 % [facility] Lymphocyte Realative Percent 21.7 % [facility] Monocyte Relative Percent 12.0 % [facility] Eosinophil Relative Percent 3.7 % [facility] Basophils Relative Diff 1.3 % [facility] Immature Granulocytes 1.0 % [facility] Neutrophils Absolute 4.95 1.50 - 7.00 [facility] Lymphocytes Absolute 1.78 1.00 - 5.00 [facility] Monocytes Absolute 0.98 0.20 - 1.00 [facility] Eosinophil Absolute 0.30 0.00 - 0.50 [facility] Basophil ABS 0.11 0.00 - 0.20 [facility] Immature Grans (Absolute) 0.08(H) 0.00 - 0.03 [facility] 05/29/2024 12:2 5 PM EDT 05/29/2024 3:24 PM EDT Van Sparks MD LAB BLOOD ORDERABLES Final Re sult Performing Organization Address [facility] Co de Phone Number [facility] [address] [place] [address] * (ABNORMAL) Protein, Total, Random Urine w/Creatinine (Protein/Creat Ratio) (05/29/2024 12:25 PM EDT) Protein, Ur 56 mg/dL [facility] Urine Protein/Creati nine Ratio 3.73(H) <=0.20 mg/mg creat [facility] Creatinine, Urine 15.0 mg/dL [facility] 05/29/2024 12:2 5 PM EDT 05/29/2024 3:21 PM EDT us Van Sparks MD LAB URINE ORDERABLES Final Re sult Performing Organization Address City/[facility]/ZIP Co de Phone Number [facility] [address] [place] [address] * (ABNORMAL) Urinalysis Reflex Microscopic (05/29/2024 12:25 PM EDT) Specific [place] 1.011 1.003 - 1.030 [facility] pH Urine 7.0 5.0 - 8.0 pH [facility] LEUKOCYTES, URINE Negative Negative [facility] Nitrite, Urine Negative Negative [facility] Protein, Urine 100(A) <=Trace mg/dL [facility] Glucose Urine 100(A) Negative mg/dL [facility] Ketones, Urine Negative Negative mg/dL [facility] Urobilinogen Urine 1.0 0.2 - 1.0 mg/dL [facility] Bilirubin Urine Negative Negative [facility] Blood Urine Negative Negative [facility] RBC, Urine 2.2 0 - 4 /HPF [facility] WBC, Urine 0.3 0 - 4 /HPF [facility] Squamous Epithelial, Urine 5 0 - 60 /LPF [facility] Bacteria, Urine Negative Negative /HPF [facility] Hyaline Casts, UA 0.0 0 - 3 /LPF [facility] 05/29/2024 12:2 5 PM EDT 05/29/2024 3:21 PM EDT us Van Sparks MD LAB URINE ORDERABLES Final Re sult CHRISSIE [facility] [address] [place] [address] * (ABNORMAL) Vitamin D 25 Hydroxy (05/29/2024 12:25 PM EDT) Vitamin D, 25-OH, Total 20.8(L) 30.0 - 80.0 ng/mL [facility] 05/29/2024 12:2 5 PM EDT 05/29/2024 3:12 PM EDT us Van Sparks MD LAB BLOOD ORDERABLES Final Re sult Performing Organization Address [facility] Co de Phone Number [facility] [address] [place] [address] * Uric Acid (05/29/2024 12:25 PM EDT) Uric Acid 5.6 3.7 - 9.2 mg/dL [facility] 05/29/2024 12:2 5 PM EDT 05/29/2024 3:12 PM EDT us Van Sparks MD LAB BLOOD ORDERABLES Final Re sult Performing Organization Address [facility] de Phone Number [facility] [address] [place] [address] * Phosphorus (05/29/2024 12:25 PM EDT) Phosphorus 3.6 2.5 - 4.5 mg/dL [facility] 05/29/2024 12:2 5 PM EDT 05/29/2024 3:12 PM EDT us Van Sparks MD LAB BLOOD ORDERABLES Final Re sult Performing Organization Address [facility] de Phone Number [facility] [address] [place] [address] * PTH, Intact (05/29/2024 12:25 PM EDT) PTH 26.6 18.5 - 88.0 pcg/mL [facility] 05/29/2024 12:2 5 PM EDT 05/29/2024 3:12 PM EDT us Van Sparks MD LAB BLOOD ORDERABLES Final Re sult Performing Organization Address City/[facility]/ZIP Co de Phone Number [facility] [address] [place] [address] * Magnesium (05/29/2024 12:25 PM EDT) [facility] Magnesium 2.2 1.9 - 2.6 mg/dL [facility] 05/29/2024 12:2 5 PM EDT 05/29/2024 3:12 PM EDT Van Sparks MD LAB BLOOD ORDERABLES Final Re sult Performing Organization Address [facility] Co de Phone Number [facility] [address] [place] [address] * (ABNORMAL) Comprehensive Metabolic Panel (05/29/2024 12:25 PM EDT) [facility] Sodium 139 133 - 145 mmol/L [facility] Potassium 5.0 3.5 - 5.5 mmol/L [facility] Chloride 106 96 - 110 mmol/L [facility] Bicarbonate (CO2) 28 21 - 32 mmol/L [facility] Anion Gap 5 3 - 11 [facility] Glucose 221(H) 70 - 100 mg/dL [facility] BUN 18 5 - 25 mg/dL [facility] Creatinine Serum 0.72 0.70 - 1.30 mg/dL [facility] eGFR 101 >=60 mL/min/1. 73m2 [facility] Comment:Calculation based on the?Chronic Kidney Disease Epidemiology Collaboration (CKD-EPI) equation refit?without adjustment for race. BUN/Creatinine Ratio 25.0 [facility] Calcium 9.7 8.5 - 10.5 mg/dL [facility] AST (SGOT) 17 10 - 42 unit/L [facility] ALT (SGPT) 21 10 - 60 unit/L [facility] Alkaline Phosphatase 104 42 - 121 unit/L [facility] Total Protein 7.3 6.0 - 8.0 g/dL [facility] Albumin 3.1(L) 3.2 - 5.0 g/dL [facility] Total Bilirubin 0.3 0.0 - 1.4 mg/dL [facility] 05/29/2024 12:2 5 PM EDT 05/29/2024 3:12 PM EDT us Van Sparks MD LAB BLOOD ORDERABLES Final Re sult [facility] [address] [place] [address] from Last 3 Months Insurance Medicare Medicaid [place] Care Teams Legal Intern Relationship Specialty Start Date End Date Silvino Lowery MD [address] [place] [phone] PCP - General Internal Medicine 05/31/23
--- OUTSIDE RECORDS SUMMARY | 2024-06-26 10:55 | XMS_ITS | Clinical Summary ---
Author Organization [facility] [address] [place] [address] [place] [phone] Phone Care Team Providers Care Gta Name Role Phone Chuckie Naylor MD Primary Care Provider Allergies No known active allergies Medications blood-glucose transmitter (DEXCOM G6 TRANSMITTER MISC) Use as directed Active ammonium lactate (AMLACTIN) 12 % cream APPLY THIN LAYER TWICE DAILY TO FEET NEEDED FOR DRY SKIN Active blood-glucose meter,continuous (Dexcom G6 Polysomnography Tech) misc Use as directed 024 Active latanoprost (XALATAN) 0.005 % ophthalmic solution INSTILL 1 DROP INTO BOTH EYES NIGHTLY 022 Active timolol (TIMOPTIC) 0.5 % ophthalmic solution INSTILL 1 DROP IN BOTH EYES IN THE MORNING 022 Active Glucagon HCl, rDNA, (Glucagon Emergency Kit, human,) 1 mg injection Inject 1 Kit into the muscle once for 1 dose. 021 Active sildenafiL (VIAGRA) 100 mg tablet TAKE 1/2 TO 1 TABLET BY MOUTH 1 HOUR BEFORE NEEDED 4 tablet 5 024 Active urea (Ureacin-20) 20 % cream Apply topically at bedtime. 85 g 3 025 Active blood-glucose transmitter (Dexcom G6 Transmitter) deviceIndications:D iabetic peripheral neuropathy (CMS/HCC V24, CMS/HCC V28) Use as directed. 1 each 3 025 Active blood-glucose sensor (Dexcom G6 Sensor) deviceIndications:D iabetic peripheral neuropathy (CMS/HCC V24, CMS/HCC V28) Box = Kit = EA3 sensors per 1 month supply--Use as directed 3 kit 11 025 Active BD Aria 2nd Gen Pen Needle 32 gauge x 5/32 needleIndications:T ype 2 diabetes mellitus with diabetic microalbuminuria, with long-term current use of insulin (CMS/HCC V24, CMS/HCC V28) USE 4 TIMES DAILY. 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 Active amLODIPine (NORVASC) 10 mg tablet Take 1 tablet (10 mg total) by mouth 1 (one) time each day. 90 tablet 1 025 Active gabapentin (NEURONTIN) 800 mg tabletIndications:T ype 2 diabetes mellitus with diabetic peripheral angiopathy without gangrene (CMS/HCC V24, CMS/HCC V28) TAKE 1 TABLET BY MOUTH FOUR TIMES A DAY 120 tablet 5 025 Active gabapentin (NEURONTIN) 800 mg tablet Take 1 Tablet by mouth 4 times daily. 024 2024 Discontinued losartan (COZAAR) 50 mg tablet TAKE 1 TABLET BY MOUTH EVERY DAY 90 tablet 1 024 2024 Discontinued amLODIPine (NORVASC) 10 mg tablet TAKE 1 TABLET BY MOUTH EVERY DAY 90 tablet 1 025 2024 Discontinued azithromycin (ZITHROMAX) 250 mg tablet Take 2 tablets (500 mg total) by mouth 1 (one) time each day for 1 day, THEN 1 tablet (250 mg total) 1 (one) time each day for 4 days. 6 each 025 2024 Active Problems Problem Noted Date Diagnosed Date Malignant neoplasm of urinar y bladder ([facility] V24, [facility] V28) 08/29/2023 Other psoriasis 02/05/2022 Diabetic peripheral neuropathy ([facility] V24, [facility] V28) 02/01/2022 Assessment & Plan (06/05/2024 9:18 PM EDT): Diabetic skin ulcer ([facility] V24, [facility] V28) 1 04/04/2021 Overview (01/05/2024): 01/13/2022 Fran Plascencia Podiatry Claudication ([facility] V24) 11/11/2020 Overview (01/05/2024): PVCA Inflammatory arthritis 03/19/2013 Overview (01/05/2024): Onset 2012. Asymmetric RF and CCP Ab negative. Lyme Ab negative Diabetes mellitus with micro albuminuria ([facility] V24, [facility] V28) 12/07/2011 Overview (01/05/2024): CTS. Assessment & Plan (06/05/2024 9:18 PM EDT): DM (diabetes mellitus) with peripheral vascular complication ([facility] V24, [facility] V28) 12/07/2011 Overview (01/05/2024): ED. Assessment & Plan (06/05/2024 9:18 PM EDT): Type 1 diabetes mellitus wit h eye manifestations ([facility] V24, [facility] V28) 12/07/2011 Overview (01/05/2024): Proliferative retinopathy- right. Assessment & Plan (06/05/2024 9:18 PM EDT): HTN (hypertension) 07/29/2011 Assessment & Plan (06/05/2024 9:18 PM EDT): DM (diabetes mellitus), type 1 with renal complications ([facility] V24, [facility] V28) 07/29/2011 DM (diabetes mellitus), type 1 with ophthalmic complications ([facility] V24, [facility] V28) 01/04/2011 Diabetic retinopathy ([facility] V24, [facility] V28) 06/11/2010 Erectile dysfunction 09/08/2009 Carpal tunnel syndrome 08/05/2005 Congenital hereditary muscul ar dystrophy ([facility] V24, [facility] V28) 08/05/2005 Proteinuria 08/05/2005 Traumatic pneumohemothorax 08/05/2005 Overview (01/05/2024): IMO update Encounters Date Type Department Care Team Description 06/11/2024 8:06 AM EDT - 06/11/2024 11:59 PM EDT Hospital Encounter Radiology Department - [address] [phone] Screening for AAA (abdominal aortic aneurysm) Discharge Disposition: Home or Self Care 05/31/2024 3:00 PM EDT Office Visit Adult Medicine [address] [phone] Chuckie Naylor MD Medicare annual wellness visit, initial (Primary Dx); 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 ([facility] V24, [facility] V28); Diabetic peripheral neuropathy ([facility] V24, [facility] V28); DM (diabetes mellitus) with peripheral vascular complication ([facility] V24, [facility] V28); Hypertension, unspecified type; Diabetes mellitus with microalbuminuria ([facility] V24, [facility] V28); Screening for AAA (abdominal aortic aneurysm) 05/08/2024 3:30 PM EDT Office Visit Adult Medicine [address] [phone] Chuckie Naylor MD Type 1 diabetes mellitus with nephropathy ([facility] V24, [facility] V28) (Primary Dx); Hypertension, unspecified type; Diabetes mellitus with microalbuminuria ([facility] V24, [facility] V28); Screening for prostate cancer 03/29/2024 2:00 PM EST Office Visit Orthopedic Surgery [address] [phone] Jayesh Johnson DPM Non-pressure chronic ulcer of left ankle with fat layer exposed ([facility] V24, [facility] V28) (Primary Dx); Peripheral venous insufficiency; Type II diabetes mellitus with peripheral circulatory disorder ([facility] V24, [facility] V28); Diabetic mononeuropathy simplex ([facility] V24, [facility] V28); Dermatophytosis of nail from Last 3 Months Immunizations Name Administration [...] tunnel syndrome Congenital hereditary muscul ar dystrophy ([facility] V24, [facility] V28) 08/05/2005 DX:Congenital her editary muscular dystrophy (HCC) HTN (hypertension) 07/29/2011 DX:HTN (hyper tension) History of rectal bleeding DX:Hi story of rectal bleeding Diabetic peripheral neuropat hy ([facility] V24, [facility] V28) 02/01/2022 DX:Diabetic peripheral neur opathy (HCC) Diabetic skin ulcer ([facility] V24, [facility] V28) 02/01/2022 DX:Diabetic skin ulcer [...] drink = 0.6 oz pur e alcohol) Housing Instability Answer Date Recorde d Are you worried that in the next 2 months you may not have stable housing? No 05/31/2024 Food Access & Nutrition Answer Date Rec orded Do you have access to a vari ety of food including fruits and vegetables? No 05/31/2024 Access to Healthcare Answer Date Record ed Within the last 3 months, ho w many times did you visit the emergency department for your medical care? 0 05/31/2024 Health Literacy Answer Date Recorded How often do you need to hav e someone help you when you read instructions, pamphlets, or other written material from your doctor or pharmacy? Never 05/31/2024 Caregiver: How often do you need to have someone help you when you read instructions, pamphlets, or other written material from your doctor or pharmacy? Not on file 05/31/2024 Financial Risk Answer Date Recorded How hard is it for you to pa y for the very basics like food, housing, medical care, and air conditioning / heating? Not very hard 05/31/2024 Transportation Answer Date Recorded Has the lack of transportati on kept you from meetings, work, or from getting things needed for daily living? Not on file 05/31/2024 Has the lack of transportati on kept you from medical appointments or from getting medications? No 05/31/2024 Social Isolation Answer Date Recorded How often do you feel lonely or isolated from th ose around you? Never 05/31/2024 Food Risk Answer Date Recorded Within the past 12 months we worried whether our food would run out before we got money to buy more. Never true 05/31/2024 Within the past 12 months th e food we bought just didn't last and we didn't have money to get more. Never true 05/31/2024 Dependent Care Answer Date Recorded Do you need help finding or paying for care for your loved ones. For example, child care specialist or elderly care for an older adult? No 05/31/2024 Education Answer Date Recorded Do you think completing more education or training, like finishing a GED, going to college, or learning a trade, would be helpful for you? No 05/31/2024 Employment and Income Answer Date Recor ded During the last four weeks, have you been actively looking for work? No 05/31/2024 Living Situation Answer Date Recorded What is your living situation? 0 05/31/2024 Sex and Gender Information Value Date Recorded Sex Assigned at Not on file Legal Sex Male 9:39 PM EST Gender Identity Not on file Sexual Orientation Not on file Obstetrics History Last Filed Vital Signs Vital Sign Reading Time Taken Comments Blood Pressure 141/67 05/08/2024 3:47 PM EDT Pulse 80 05/31/2024 3:20 PM EDT Temperature 36.6 ??C (97.9 ??F) 05/31/2024 3:20 PM ED T Respiratory Rate 14 05/31/2024 3:20 PM EDT Oxygen Saturation 97% 05/31/2024 3:20 PM EDT Inhaled Oxygen Concentration - - Weight 83.5 kg (184 lb) 05/31/2024 3:20 PM EDT Height 177.8 cm (5' 10 ) 05/31/2024 3:20 PM EDT Body Mass Index 26.4 05/31/2024 3:20 PM EDT Plan of Treatment Upcoming Encounters Date Type Department Care Team (Late st Contact Info) Description 07/05/2024 2:30 PM EDT Office Visit Endocrinology - [place] [address] [place] [phone] Scarlet Corcoran MD [address] [place] [address] Health Maintenance Due Date Last Done Comments Pneumococcal Vaccine: 50+ Years (2 of 2 - PCV) 06/07/2008 06/08/2007 RSV Immunization Adult Patients (1 - Risk 60-74 years 1-dose series) 2018 COVID-19 Vaccine (2 - Sakshi risk series) 10/31/2020 10/03/2020 Influenza Vaccine (Season Ended) 2024 Diabetes: Blood Sugar Control Test (HGBA1C) 11/28/2024 05/29/2024, 05/27/2023 Diabetes: Annual Retina Eye Exam 04/25/2025 04/25/2024 Diabetes: Annual Urine Albumin-Creatinine Ratio (uACR) 05/29/2025 05/29/2024, 05/27/2023 Diabetes: Annual GFR (Glomerular Filtration Rate) 05/29/2025 05/29/2024, 05/29/2024, 05/29/2024, Additional history exists Hypertension/CHF/CAD Annual BMP Blood Test 05/29/2025 05/29/2024, 05/29/2024, 05/29/2024, Additional history exists Depression Screening 05/31/2025 05/31/2024, 05/23/19 Diabetes: Annual Foot Exam 05/31/2025 05/31/2024, Falls Risk Assessment 05/31/2025 05/31/2024, 025 Medicare Annual Wellness Visit 05/31/2025 05/31/2024 Social Influencers of Health Screening 05/31/2025 05/31/2024 Cholesterol Screening (Lipid Panel) 05/29/2029 05/29/2024, 05/27/2023 Colorectal Cancer Screening: Colonoscopy 03/09/2031 03/09/2021 DTaP,Tdap,and Td Vaccines (3 - Td or Tdap) 03/17/2032 03/17/2022, 06/29/2007 Pneumococcal Vaccine: Pediatrics (0 to 5 Years) and At-Risk Patients (6 to 64 Years) Discontinued 06/08/2007 Hepatitis C Screening Completed 03/15/2013 Abdominal Aortic Aneurysm (AAA) Screen Completed 06/11/2024 HIB Vaccines Aged Out No longer eligi [...] 20 months Aged Out No longer eligible based on patient's age to complete this topic Varicella Vaccines Aged Out No longer eligible based on patient's age to complete this topic Zoster Vaccines Discontinued Procedures Procedure Name Priority Date/Time Associated Diagnosis Comments US ABDOMEN AORTIC ANEURYSM SCREENING Routine 06/11/2024 8:22 AM EDT Screening for AAA (abdominal aortic aneurysm) CBC WITH AUTO DIFFERENTIAL Routine 05/29/2024 12:25 [...] mellitus with microalbuminuria (CMS/HCC V24, CMS/HCC V28) MICROALBUMIN CREATININE URINE RATIO Routine 05/29/2024 12:25 PM EDT Type 1 diabetes mellitus with nephropathy (CMS/HCC V24, CMS/HCC V28) Diabetes mellitus with microalbuminuria (CMS/HCC V24, CMS/HCC V28) HEMOGLOBIN A1C Routine 05/29/2024 12:25 PM EDT Type 1 [...] (CMS/HCC V24, CMS/HCC V28) Essential hypertension, malignant PROTEIN AND CREATININE WITH RATIO, URINE Routine 05/29/2024 12:25 PM EDT Chronic kidney disease, stage I Diabetic glomerulopathy (CMS/HCC V24, CMS/HCC V28) Essential hypertension, malignant URINALYSIS WITH REFLEX MICROSCOPIC Routine 05/29/2024 12:25 PM EDT Chronic kidney disease, stage I Diabetic glomerulopathy (CMS/HCC V24, CMS/HCC V28) Essential hypertension, malignant PROSTATE SPECIFIC ANTIGEN SCREEN Routine 05/29/2024 12:25 PM EDT Screening for prostate cancer HM DEPRESSION SCREENING Routine 05/23/2023 DIABETES FOOT EXAM Routine 05/02/2023 COLONOSCOPY Routine 03/09/2021 HEPATITIS C SCREENING Routine 03/15/2013 from Last 3 Months or Most Recently Relevant to Health Maintenance Results * US Abdomen Aortic Aneurysm Screening (06/11/2024 8:22 AM EDT) Anatomical Region Laterality Modality Abdominal aorta Ultrasound 06/11/2024 9:16 AM EDT Impressions 06/11/2024 9:17 AM EDT No evidence of abdominal aortic aneurysm -------- FINAL REPORT -------- Dictated By: Abril Brian Dictated Date: 06/11/2024 09:16 ET Assigned Physician: Abril Brian Reviewed and Electronically Signed By: Abril Brian Signed Date: 06/11/2024 09:17 ET Workstation ID: [id number] Transcribed By: Self Edit Transcribed Date: 06/11/2024 09:16 ET Narrative 06/11/2024 9:17 AM EDT EXAM: Ultrasound evaluation of the abdominal aorta. HISTORY: screen for AAA COMPARISON:None Technique: Grayscale and Doppler images of the abdominal aorta and proximal common iliac arteries were obtained. FINDINGS: Proximal abdominal aorta measures 1.9 x 1.6 x 2.0 cm in caliber Mid abdominal aorta measures 1.4 x 1.4 x 1.3 cm in caliber Distal abdominal aorta measures 1.2 cm in caliber Left proximal common iliac artery measures 1.0 cm in caliber Right proximal common iliac artery measures 0.7 cm in caliber Procedure Note Abril Brian MD - 06/11/2024 EXAM: Ultrasound evaluation of the abdominal aorta. HISTORY: screen for AAA COMPARISON:None Technique: Grayscale and Doppler images of the abdominal aorta andproximal common iliac arteries were obtained. FINDINGS: Proximal abdominal aorta measures 1.9 x 1.6 x 2.0 cm in caliber Mid abdominal aorta measures 1.4 x 1.4 x 1.3 cm in caliber Distal abdominal aorta measures 1.2 cm in caliber Left proximal common iliac artery measures 1.0 cm in caliber Right proximal common iliac artery measures 0.7 cm in caliber IMPRESSION: No evidence of abdominal aortic aneurysm -------- FINAL REPORT -------- Dictated By: Abril Brian Dictated Date: 06/11/2024 09:16 ET Assigned Physician: Abril Brian Reviewed and Electronically Signed By: Abril Brian Signed Date: 06/11/2024 09:17 ET Workstation ID: [id number] Transcribed By: Self Edit Transcribed Date: 06/11/2024 09:16 ET us Chuckie Naylor MD IMG US PROCEDURES Iliana l Result * Prostate specific antigen screen (05/29/2024 12:25 PM EDT) PSA 2.00 0.00 - 4.00 ng/mL LAB CHEMISTRY METHOD 05/29/2024 4:45 PM EDT [facility] Blood Venous blood specimen / Unknown Venipuncture / Unknown 05/29/2024 12:25 PM EDT 05/29/2024 12:25 PM EDT Narrative [facility] - 05/29/2024 4:45 PM EDT The Siemens Advia Chloe + Isabelaur Chemiluminescent Immunoassay is used. Results obtained with different assay methods or kits cannot be used interchangeably. Results cannot be interpreted as absolute evidence of the presence or absence of malignant disease. us Chuckie Naylor MD LAB BLOOD ORDERABLES F inal Result [facility] [address] [place] [address], [place] [phone] * (ABNORMAL) Urinalysis with reflex microscopic (05/29/2024 12:25 PM EDT) Pathologist [facility] Specific [place] Urine 1.011 1.003 - 1.030 LAB URINALYSIS - AUTOMATED METHOD 05/29/2024 4:07 PM EDT [facility] pH, Urine 7.0 5.0 - 8.0 pH LAB URINALYSIS - AUTOMATED METHOD 05/29/2024 4:07 PM [facility] Leukocytes, Urine Negative Negative LAB URINALYSIS - AUTOMATED METHOD 05/29/2024 4:07 PM [facility] Nitrite, Urine Negative Negative LAB URINALYSIS - AUTOMATED METHOD 05/29/2024 4:07 PM [facility] Protein, Urine 100(A) <=Trace mg/dL LAB URINALYSIS - AUTOMATED METHOD 05/29/2024 4:07 PM [facility] Glucose, Urine 100(A) Negative mg/dL LAB URINALYSIS - AUTOMATED METHOD 05/29/2024 4:07 PM [facility] Ketones, Urine Negative Negative mg/dL LAB URINALYSIS - AUTOMATED METHOD 05/29/2024 4:07 PM [facility] Urobilinogen, Urine 1.0 0.2 - 1.0 mg/dL LAB URINALYSIS - AUTOMATED METHOD 05/29/2024 4:07 PM [facility] Bilirubin, Urine Negative Negative LAB URINALYSIS - AUTOMATED METHOD 05/29/2024 4:07 PM [facility] Blood, Urine Negative Negative LAB URINALYSIS - AUTOMATED METHOD 05/29/2024 4:07 PM EDT [facility] RBC, Urine 2.2 0 - 4 /HPF LAB URINALYSIS - AUTOMATED METHOD 05/29/2024 4:07 PM EDT [facility] WBC, Urine 0.3 0 - 4 /HPF LAB URINALYSIS - AUTOMATED METHOD 05/29[facility]2024 [facility] Squamous Epithelial, Urine 5 0 - 60 /LPF LAB URINALYSIS - AUTOMATED METHOD 05/29/2024 4:07 PM EDT [facility] Bacteria, Urine Negative Negative /HPF LAB URINALYSIS - AUTOMATED METHOD 05/29/2024 4:07 PM [facility] Hyaline Casts, Urine 0.0 0 - 3 /LPF LAB URINALYSIS - AUTOMATED METHOD 05/29/2024 4:07 PM [facility] Urine Urine specimen obtained by clean catch procedure / Unknown Non-blood Collection / Unknown 05/29/2024 12:25 PM EDT 05/29/2024 12:25 PM EDT us Van Sparks MD LAB URINE ORDERABLES Final Result [facility] [address] [place] [address], * Lipid panel with reflex to direct LDL (05/29/2024 12:25 PM EDT) Cholesterol 122 0 - 200 mg/dL LAB CHEMISTRY METHOD 05/29/2024 3:46 PM EDT [facility] Triglycerides 104 0 - 150 mg/dL LAB CHEMISTRY METHOD 05/29/2024 3:46 PM EDT [facility] HDL 43 >=40 mg/dL LAB CHEMISTRY METHOD 05/29/2024 3:46 PM EDT [facility] LDL Calculated 58 0 - 100 mg/dL LAB CHEMISTRY METHOD 05/29/2024 3:46 PM EDT [facility] VLDL Cholesterol Oliverio 20.8 mg/dL LAB CHEMISTRY METHOD 05/29/2024 3:46 PM EDT [facility] Non HDL Chol. (LDL+VLDL) 79 <145 mg/dL LAB CHEMISTRY METHOD 05/29/2024 3:46 PM EDT [facility] Chol/HDL Ratio 2.8 0.0 - 4.4 LAB CHEMISTRY METHOD 05/29/2024 3:46 PM EDT [facility] Blood Venous blood specimen / Unknown Venipuncture / Unknown 05/29/2024 12:25 PM EDT 05/29/2024 12:25 PM EDT us Chuckie Naylor MD LAB BLOOD ORDERABLES F inal Result [facility] [address] [place] [address], [place] [phone] * (ABNORMAL) CBC auto differential (05/29/2024 12:25 PM EDT) WBC 8.2 4.8 - 10.8 K/mcL LAB HEMETOLOGY METHOD 05/29/2024 3:41 PM EDT [facility] RBC 3.90(L) 4.50 - 5.50 M/mcL LAB HEMETOLOGY METHOD 05/29/2024 3:41 PM EDT [facility] Hemoglobin 11.4(L) 13.5 - 17.5 g/dL LAB HEMETOLOGY METHOD 05/29/2024 3:41 PM EDT [facility] Hematocrit 36.6(L) 42.0 - 54.0 % LAB HEMETOLOGY METHOD 05/29/2024 3:41 PM EDT [facility] MCV 93.6 79.0 - 98.0 FL LAB HEMETOLOGY METHOD 05/29/2024 3:41 PM EDT [facility] MCH 29.2 27.0 - 32.0 pcg LAB HEMETOLOGY METHOD 05/29/2024 3:[facility] MCHC 31.1(L) 32.0 - 37.0 g/dL LAB HEMETOLOGY METHOD 05/29/2024 3:41 PM [facility] RDW 14.0 11.0 - 15.0 % LAB HEMETOLOGY METHOD 05/29/2024 3:41 PM [facility] Platelets 643(H) 130 - 400 K/mcL LAB HEMETOLOGY METHOD 05/29/2024 3:41 PM [facility] MPV 9.5 7.0 - 11.0 FL LAB HEMETOLOGY METHOD 05/29/2024 3:41 PM [facility] NRBC 0.0 <1.0 % LAB HEMETOLOGY METHOD 05/29/2024 3:41 PM [facility] NRBC Absolute 0.00 <0.10 K/mcL LAB HEMETOLOGY METHOD 05/29/2024 3:41 PM [facility] Neutrophils Relative 60.3 % LAB HEMETOLOGY METHOD 05/29/2024 3:41 PM [facility] Lymphocytes Relative 21.7 % LAB HEMETOLOGY METHOD 05/29/2024 3:41 PM [facility] Monocytes Relative 12.0 % LAB HEMETOLOGY METHOD 05/29/2024 3:41 PM [facility] Eosinophils Relative 3.7 % LAB HEMETOLOGY METHOD 05/29/2024 3:41 PM [facility] Basophils Relative 1.3 % LAB HEMETOLOGY METHOD 05/29/2024 3:41 PM [facility] Immature Granulocytes Relative 1.0 % LAB HEMETOLOGY METHOD 05/29/2024 3:41 PM EDT [facility] Neutrophils Absolute 4.95 1.50 - 7.00 K/mcL LAB HEMETOLOGY METHOD 05/29/2024 3:41 PM EDT [facility] Lymphocytes Absolute 1.78 1.00 - 5.00 K/mcL LAB HEMETOLOGY METHOD 05/29/2024 3:41 PM EDT [facility] Monocytes Absolute 0.98 0.20 - 1.00 K/mcL LAB HEMETOLOGY METHOD 05/29/2024 3:41 PM EDT [facility] Eosinophils Absolute 0.30 0.00 - 0.50 K/[facility] LAB HEMETOLOGY METHOD 05/29/2024 3:41 PM EDT [facility] Basophils Absolute 0.11 0.00 - 0.20 K/mcL LAB HEMETOLOGY METHOD 05/29/2024 3:41 PM EDT [facility] Immature Granulocytes Absolute 0.08(H) 0.00 - 0.03 K/mcL LAB HEMETOLOGY METHOD 05/29/2024 3:41 PM EDT [facility] Blood Venous blood specimen / Unknown Venipuncture / Unknown 05/29/2024 12:25 PM EDT 05/29/2024 12:25 PM EDT us Van Sparks MD LAB BLOOD ORDERABLES Final Result [facility] [address] [place] [address], * (ABNORMAL) Protein and creatinine with ratio, urine (05/29/2024 12:25 PM EDT) Protein, Urine 56 mg/dL LAB CHEMISTRY METHOD 05/29/2024 7:54 PM EDT [facility] Prot/Creat, Ur 3.73(H) <=0.20 mg/mg creat LAB CHEMISTRY METHOD 05/29/2024 7:54 PM EDT [facility] Creatinine, Urine 15.0 mg/dL LAB CHEMISTRY METHOD 05/29/2024 7:54 PM EDT [facility] Urine Urine specimen obtained by clean catch procedure / Unknown Non-blood Collection / Unknown 05/29/2024 12:25 PM EDT 05/29/2024 12:25 PM EDT us Van Sparks MD LAB URINE ORDERABLES Final Result Performing Organization Address [facility]/ZIP Co de Phone Number [facility] [address] [place] [address], [place] [phone] * (ABNORMAL) Microalbumin creatinine urine ratio (05/29/2024 12:25 PM EDT) Creatinine, Urine 15.0 mg/dL LAB CHEMISTRY METHOD 05/29/2024 8:02 PM EDT [facility] Microalb, Ur 320.0(H) 0.0 - 29.0 mg/L LAB CHEMISTRY METHOD 05/29/2024 8:02 PM EDT [facility] Microalb/Crea t Ratio 2,133(H) <30 mg/g creat LAB CHEMISTRY METHOD 05/29/2024 8:02 PM EDT [facility] Urine Urine specimen obtained by clean catch procedure / Unknown Non-blood Collection / Unknown 05/29/2024 12:25 PM EDT 05/29/2024 12:25 PM EDT Chuckie Naylor MD LAB URINE ORDERABLES F inal Result [facility] [address] [place] [address], [place] [phone] * (ABNORMAL) Vitamin D 25 hydroxy (05/29/2024 12:25 PM EDT) Vit D, 25-Hydroxy 20.8(L) 30.0 - 80.0 ng/mL LAB CHEMISTRY METHOD 05/29/2024 4:45 PM EDT [facility] Blood Venous blood specimen / Unknown Venipuncture / Unknown 05/29/2024 12:25 PM EDT 05/29/2024 12:25 PM EDT us Van Sparks MD LAB BLOOD ORDERABLES Final Result [facility] [address] [place] [address], [place] [phone] * Uric acid (05/29/2024 12:25 PM EDT) [facility] Uric Acid 5.6 3.7 - 9.2 mg/dL LAB CHEMISTRY METHOD 05/29/2024 3:44 PM EDT [facility] Blood Venous blood specimen / Unknown Venipuncture / Unknown 05/29/2024 12:25 PM EDT 05/29/2024 12:25 PM EDT us Van Sparks MD LAB BLOOD ORDERABLES Final Result Performing Organization Address [facility]/ZIP Co de Phone Number [facility] [address] [place] [address], [place] [phone] * Phosphorus (05/29/2024 12:25 PM EDT) [facility] Phosphorus 3.6 2.5 - 4.5 mg/dL LAB CHEMISTRY METHOD 05/29/2024 3:44 PM EDT [facility] Blood Venous blood specimen / Unknown Venipuncture / Unknown 05/29/2024 12:25 PM EDT 05/29/2024 12:25 PM EDT us Van Sparks MD LAB BLOOD ORDERABLES Final Result [facility] [address] [place] [address], [place] [phone] * Parathyroid hormone intact (05/29/2024 12:25 PM EDT) [facility] PTH 26.6 18.5 - 88.0 pcg/mL LAB CHEMISTRY METHOD 05/29/2024 4:45 PM EDT [facility] Blood Venous blood specimen / Unknown Venipuncture / Unknown 05/29/2024 12:25 PM EDT 05/29/2024 12:25 PM EDT us Van Sparks MD LAB BLOOD ORDERABLES Final Result Performing Organization Address City/[facility]/ZIP Co de Phone Number [facility] [address] [place] [address], * Magnesium (05/29/2024 12:25 PM EDT) [facility] Magnesium 2.2 1.9 - 2.6 mg/dL LAB CHEMISTRY METHOD 05/29/2024 3:44 PM EDT [facility] Blood Venous blood specimen / Unknown Venipuncture / Unknown 05/29/2024 12:25 PM EDT 05/29/2024 12:25 PM EDT us Van Sparks MD LAB BLOOD ORDERABLES Final Result [facility] [address] [place] [address], [place] [phone] * (ABNORMAL) Hemoglobin A1c (05/29/2024 12:25 PM EDT) [facility] Hemoglobin A1C 8.8(H) <6.5 % LAB CHEMISTRY METHOD 05/29/2024 9:55 PM EDT [facility] Mean Bld Glu Estim. 206 mg/dL LAB CHEMISTRY METHOD 05/29/2024 9:55 PM EDT [facility] Blood Venous blood specimen / Unknown Venipuncture / Unknown 05/29/2024 12:25 PM EDT 05/29/2024 12:25 PM EDT us Chuckie Naylor MD LAB BLOOD ORDERABLES F inal Result [facility] [address] [place] [address], * (ABNORMAL) Comprehensive metabolic panel (05/29/2024 12:25 PM EDT) Sodium 139 133 - 145 mmol/L LAB CHEMISTRY METHOD 05/29/2024 3:46 PM [facility] Potassium 5.0 3.5 - 5.5 mmol/L LAB CHEMISTRY METHOD 05/29/2024 3:46 PM [facility] Chloride 106 96 - 110 mmol/L LAB CHEMISTRY METHOD 05/29/2024 3:46 PM [facility] CO2 28 21 - 32 mmol/L LAB CHEMISTRY METHOD 05/29/2024 3:46 PM [facility] Anion Gap 5 3 - 11 LAB CHEMISTRY METHOD 05/29/2024 3:46 PM [facility] Glucose 221(H) 70 - 100 mg/dL LAB CHEMISTRY METHOD 05/29/2024 3:46 PM [facility] BUN 18 5 - 25 mg/dL LAB CHEMISTRY METHOD 05/29/2024 3:46 PM [facility] Creatinine 0.72 0.70 - 1.30 mg/dL LAB CHEMISTRY METHOD 05/29/2024 3:46 PM [facility] eGFR 101 >=60 mL/min/1. 73m2 LAB CHEMISTRY METHOD 05/29/2024 3:46 PM [facility] Comment:Calculation based on the??Chronic Kidney Disease Epidemiology Collaboration (CKD-EPI) equation refit??without adjustment for race. BUN/Creatinine Ratio 25.0 LAB CHEMISTRY METHOD 05/29/2024 3:46 PM [facility] Calcium 9.7 8.5 - 10.5 mg/dL LAB CHEMISTRY METHOD 05/29/2024 3:46 PM [facility] AST (SGOT) 17 10 - 42 unit/L LAB CHEMISTRY METHOD 05/29/2024 3:46 PM [facility] ALT (SGPT) 21 10 - 60 unit/L LAB CHEMISTRY METHOD 05/29/2024 3:46 PM [facility] Alkaline Phosphatase 104 42 - 121 unit/L LAB CHEMISTRY METHOD 05/29/2024 3:46 PM [facility] Total Protein 7.3 6.0 - 8.0 g/dL LAB CHEMISTRY METHOD 05/29/2024 3:46 PM [facility] Albumin 3.1(L) 3.2 - 5.0 g/dL LAB CHEMISTRY METHOD 05/29/2024 3:46 PM [facility] Total Bilirubin 0.3 0.0 - 1.4 mg/dL LAB CHEMISTRY METHOD 05/29/2024 3:46 PM [facility] Blood Venous blood specimen / Unknown Venipuncture / Unknown 05/29/2024 12:25 PM EDT 05/29/2024 12:25 PM EDT us Van Sparks MD LAB BLOOD ORDERABLES Final Result [facility] [address] [place] [address], * Depression Screening (05/23/2023) Depression Screening Abstracted Historical Provider HEALTH MAINTENANCE Final Result * Diabetes Foot Exam (05/02/2023) Diabetes: Annual Foot Exam Abstracted Historical Provider HEALTH MAINTENANCE Final Result * Colonoscopy (03/09/2021) Pathologist [facility] Colonoscopy no interpretation , abstracted Anatomical Region Laterality Modality Other Historical Provider HEALTH MAINTENANCE Final Result * Hepatitis C Screening (03/15/2013) Pathologist [facility] Hepatitis C Screening Abstracted Historical Provider HEALTH MAINTENANCE Final Result from Last 3 Months or Most Recently Relevant to Health Maintenance Insurance MEDICARE [place]ICAID - [place] Care Teams [employer] Relationship Specialty Start Date End Date Chuckie Naylor MD [address] [place] [address] PCP - General Internal Medicine 12/02/21
== END 2024-06-26 11:05 | disposition home or self-care (01) ==
LOC: HO.HUSH 10:02
PROVIDERS: PCP Internal Medicine; Visit Provider Urology
DX: C67.9 Malignant neoplasm of bladder, unspecified (principal); R31.0 Gross hematuria
CPT/HCPCS: 52000; 99213; G2211

== ENCOUNTER 2024-06-26 10:01 | Outpatient (REF) | payer MEDICARE, MEDICAID, SELFPAY ==
--- OUTSIDE RECORDS SUMMARY | 2024-06-26 11:20 | XMS_ITS | Clinical Summary ---
Author Organization [facility] [address] [place] [address] [place] [phone] Phone Care Team Providers Care Laminator Preforms Name Role Phone Chuckie Naylor MD Primary Care Provider Allergies No known active allergies Medications blood-glucose transmitter (DEXCOM G6 TRANSMITTER MISC) Use as directed Active ammonium lactate (AMLACTIN) 12 % cream APPLY THIN LAYER TWICE DAILY TO FEET NEEDED FOR DRY SKIN Active blood-glucose meter,continuous (Dexcom G6 Ticket Manager) misc Use as directed 024 Active latanoprost [...] Date Malignant neoplasm of urinar y bladder ([facility] V24, [facility] V28) 08/29/2023 Other psoriasis 02/05/2022 Diabetic peripheral neuropathy ([facility] V24, [facility] V28) 02/01/2022 Assessment & Plan (06/05/2024 9:18 PM EDT): Diabetic skin ulcer ([facility] V24, [facility] V28) 1 04/04/2021 Overview (01/05/2024): 01/13/2022 Fran Plascencia Podiatry Claudication ([facility] V24) 11/11/2020 Overview (01/05/2024): PVCA Inflammatory arthritis 03/19/2013 Overview (01/05/2024): Onset 2012. Asymmetric RF and CCP Ab negative. Lyme Ab negative Diabetes mellitus with micro albuminuria ([facility] V24, [facility] V28) 12/07/2011 Overview (01/05/2024): CTS. Assessment & Plan (06/05/2024 9:18 PM EDT): DM (diabetes mellitus) with peripheral vascular complication ([facility] V24, [facility] V28) 12/07/2011 Overview (01/05/2024): ED. 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 Assessment & Plan (06/05/2024 9:18 PM EDT): HTN (hypertension) 07/29/2011 Assessment & Plan (06/05/2024 9:18 PM EDT): DM (diabetes mellitus), type 1 with renal complications ([facility] V24, [facility] V28) 07/29/2011 DM (diabetes mellitus), type 1 with ophthalmic complications ([facility] V24, [facility] V28) 01/04/2011 Diabetic retinopathy ([facility] V24, [facility] V28) 06/11/2010 Erectile dysfunction 09/08/2009 Carpal tunnel syndrome 08/05/2005 Congenital hereditary muscul ar dystrophy ([facility] V24, [facility] V28) 08/05/2005 Proteinuria 08/05/2005 Traumatic pneumohemothorax 08/05/2005 Overview (01/05/2024): IMO update Encounters Date Type Department Care Team Description 06/11/2024 8:06 AM EDT - 06/11/2024 11:59 PM EDT Hospital Encounter Radiology Department - [address] [phone] Screening for AAA (abdominal aortic aneurysm) Discharge Disposition: Home or Self Care 05/31/2024 3:00 PM EDT Office Visit Adult Medicine [address] [phone] Chuckie Naylor MD Medicare annual wellness visit, initial (Primary Dx); 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 ([facility] V24, [facility] V28); Diabetic peripheral neuropathy ([facility] V24, [facility] V28); DM (diabetes mellitus) with peripheral vascular complication ([facility] V24, [facility] V28); Hypertension, unspecified type; Diabetes mellitus with microalbuminuria ([facility] V24, [facility] V28); Screening for AAA (abdominal aortic aneurysm) 05/08/2024 3:30 PM EDT Office Visit Adult Medicine [address] [phone] Chuckie Naylor MD Type 1 diabetes mellitus with nephropathy ([facility] V24, [facility] V28) (Primary Dx); Hypertension, unspecified type; Diabetes mellitus with microalbuminuria ([facility] V24, [facility] V28); Screening for prostate cancer 03/29/2024 2:00 PM EST Office Visit Orthopedic Surgery [address] [phone] Jayesh Johnson DPM Non-pressure chronic ulcer of left ankle with fat layer exposed ([facility] V24, [facility] V28) (Primary Dx); Peripheral venous insufficiency; Type II diabetes mellitus with peripheral circulatory disorder ([facility] V24, [facility] V28); Diabetic mononeuropathy simplex ([facility] V24, [facility] V28); Dermatophytosis of nail from Last 3 [...] tunnel syndrome Congenital hereditary muscul ar dystrophy ([facility] V24, [facility] V28) 08/05/2005 DX:Congenital her editary muscular dystrophy (HCC) HTN (hypertension) 07/29/2011 DX:HTN (hyper tension) History of rectal bleeding DX:Hi story of rectal bleeding Diabetic peripheral neuropat hy ([facility] V24, [facility] V28) 02/01/2022 DX:Diabetic peripheral neur opathy (HCC) Diabetic skin ulcer ([facility] V24, [facility] V28) 02/01/2022 DX:Diabetic skin ulcer (HCC) ; [...] for your loved ones. For example, child welfare manager or elderly care for an older adult? [...] 2:30 PM EDT Office Visit Endocrinology - [place] [address] [place] [phone] Scarlet Corcoran MD [address] [place] [address] Health Maintenance Due Date Last Done Comments [...] Signed Date: 06/11/2024 09:17 ET Workstation ID: [id number] Transcribed By: Self Edit Transcribed Date: 06/11/2024 [...] Signed Date: 06/11/2024 09:17 ET Workstation ID: [id number] Transcribed By: Self Edit Transcribed Date: 06/11/2024 09:16 ET us Chuckie Naylor MD IMG US PROCEDURES Iliana l Result * Prostate specific antigen screen (05/29/2024 12:25 PM EDT) PSA 2.00 0.00 - 4.00 ng/mL LAB CHEMISTRY METHOD 05/29/2024 4:45 PM EDT [facility] Blood Venous blood specimen / Unknown Venipuncture / Unknown 05/29/2024 12:25 PM EDT 05/29/2024 12:25 PM EDT Narrative [facility] - 05/29/2024 4:45 PM EDT The Siemens Advia 5211gameaur Chemiluminescent Immunoassay is used. Results obtained with different assay methods or kits cannot be used interchangeably. Results cannot be interpreted as absolute evidence of the presence or absence of malignant disease. us Chuckie Naylor MD LAB BLOOD ORDERABLES F inal Result [facility] [address] [place] [address], [place] [phone] * (ABNORMAL) Urinalysis with reflex microscopic (05/29/2024 12:25 PM EDT) Pathologist [facility] Specific [place] Urine 1.011 1.003 - 1.030 LAB URINALYSIS - AUTOMATED METHOD 05/29/2024 4:07 PM EDT [facility] pH, Urine 7.0 5.0 - 8.0 pH LAB URINALYSIS - AUTOMATED METHOD 05/29/2024 4:07 PM [facility] Leukocytes, Urine Negative Negative LAB URINALYSIS - AUTOMATED METHOD 05/29/2024 4:07 PM [facility] Nitrite, Urine Negative Negative LAB URINALYSIS - AUTOMATED METHOD 05/29/2024 4:07 PM [facility] Protein, Urine 100(A) <=Trace mg/dL LAB URINALYSIS - AUTOMATED METHOD 05/29/2024 4:07 PM [facility] Glucose, Urine 100(A) Negative mg/dL LAB URINALYSIS - AUTOMATED METHOD 05/29/2024 4:07 PM [facility] Ketones, Urine Negative Negative mg/dL LAB URINALYSIS - AUTOMATED METHOD 05/29/2024 4:07 PM [facility] Urobilinogen, Urine 1.0 0.2 - 1.0 mg/dL LAB URINALYSIS - AUTOMATED METHOD 05/29/2024 4:07 PM [facility] Bilirubin, Urine Negative Negative LAB URINALYSIS - AUTOMATED METHOD 05/29/2024 4:07 PM [facility] Blood, Urine Negative Negative LAB URINALYSIS - AUTOMATED METHOD 05/29/2024 4:07 PM EDT [facility] RBC, Urine 2.2 0 - 4 /HPF LAB URINALYSIS - AUTOMATED METHOD 05/29/2024 4:07 PM EDT [facility] WBC, Urine 0.3 0 - 4 /HPF LAB URINALYSIS - AUTOMATED METHOD 05/29/2024 4:[facility] Squamous Epithelial, Urine 5 0 - 60 /LPF LAB URINALYSIS - AUTOMATED METHOD 05/29/2024 4:07 PM EDT [facility] Bacteria, Urine Negative Negative /HPF LAB URINALYSIS - AUTOMATED METHOD 05/29/2024 4:07 PM [facility] Hyaline Casts, Urine 0.0 0 - 3 /LPF LAB URINALYSIS - AUTOMATED METHOD 05/29/2024 4:07 PM [facility] Urine Urine specimen obtained by clean catch procedure / Unknown Non-blood Collection / Unknown 05/29/2024 12:25 PM EDT 05/29/2024 12:25 PM EDT us Van Sparks MD LAB URINE ORDERABLES Final Result [facility] [address] [place] [address], * Lipid panel with reflex to direct LDL (05/29/2024 12:25 PM EDT) Cholesterol 122 0 - 200 mg/dL LAB CHEMISTRY METHOD 05/29/2024 3:46 PM EDT [facility] Triglycerides 104 0 - 150 mg/dL LAB CHEMISTRY METHOD 05/29/2024 3:46 PM EDT [facility] HDL 43 >=40 mg/dL LAB CHEMISTRY METHOD 05/29/2024 3:46 PM EDT [facility] LDL Calculated 58 0 - 100 mg/dL LAB CHEMISTRY METHOD 05/29/2024 3:46 PM EDT [facility] VLDL Cholesterol Oliverio 20.8 mg/dL LAB CHEMISTRY METHOD 05/29/2024 3:46 PM EDT [facility] Non HDL Chol. (LDL+VLDL) 79 <145 mg/dL LAB CHEMISTRY METHOD 05/29/2024 3:46 PM EDT [facility] Chol/HDL Ratio 2.8 0.0 - 4.4 LAB CHEMISTRY METHOD 05/29/2024 3:46 PM EDT [facility] Blood Venous blood specimen / Unknown Venipuncture / Unknown 05/29/2024 12:25 PM EDT 05/29/2024 12:25 PM EDT us Chuckie Naylor MD LAB BLOOD ORDERABLES F inal Result [facility] [address] [place] [address], [place] [phone] * (ABNORMAL) CBC auto differential (05/29/2024 12:25 PM EDT) WBC 8.2 4.8 - 10.8 K/mcL LAB HEMETOLOGY METHOD 05/29/2024 3:41 PM EDT [facility] RBC 3.90(L) 4.50 - 5.50 M/mcL LAB HEMETOLOGY METHOD 05/29/2024 3:41 PM EDT [facility] Hemoglobin 11.4(L) 13.5 - 17.5 g/dL LAB HEMETOLOGY METHOD 05/29/2024 3:41 PM EDT [facility] Hematocrit 36.6(L) 42.0 - 54.0 % LAB HEMETOLOGY METHOD 05/29/2024 3:41 PM EDT [facility] MCV 93.6 79.0 - 98.0 FL LAB HEMETOLOGY METHOD 05/29/2024 3:41 PM EDT [facility] MCH 29.2 27.0 - 32.0 pcg LAB HEMETOLOGY METHOD 05/29/2024 3:[facility] MCHC 31.1(L) 32.0 - 37.0 g/dL LAB HEMETOLOGY METHOD 05/29/2024 3:41 PM [facility] RDW 14.0 11.0 - 15.0 % LAB HEMETOLOGY METHOD 05/29/2024 3:41 PM [facility] Platelets 643(H) 130 - 400 K/mcL LAB HEMETOLOGY METHOD 05/29/2024 3:41 PM [facility] MPV 9.5 7.0 - 11.0 FL LAB HEMETOLOGY METHOD 05/29/2024 3:41 PM [facility] NRBC 0.0 <1.0 % LAB HEMETOLOGY METHOD 05/29/2024 3:41 PM [facility] NRBC Absolute 0.00 <0.10 K/mcL LAB HEMETOLOGY METHOD 05/29/2024 3:41 PM [facility] Neutrophils Relative 60.3 % LAB HEMETOLOGY METHOD 05/29/2024 3:41 PM [facility] Lymphocytes Relative 21.7 % LAB HEMETOLOGY METHOD 05/29/2024 3:41 PM [facility] Monocytes Relative 12.0 % LAB HEMETOLOGY METHOD 05/29/2024 3:41 PM [facility] Eosinophils Relative 3.7 % LAB HEMETOLOGY METHOD 05/29/2024 3:41 PM [facility] Basophils Relative 1.3 % LAB HEMETOLOGY METHOD 05/29/2024 3:41 PM [facility] Immature Granulocytes Relative 1.0 % LAB HEMETOLOGY METHOD 05/29/2024 3:41 PM EDT [facility] Neutrophils Absolute 4.95 1.50 - 7.00 K/mcL LAB HEMETOLOGY METHOD 05/29/2024 3:41 PM EDT [facility] Lymphocytes Absolute 1.78 1.00 - 5.00 K/mcL LAB HEMETOLOGY METHOD 05/29/2024 3:41 PM EDT [facility] Monocytes Absolute 0.98 0.20 - 1.00 K/mcL LAB HEMETOLOGY METHOD 05/29/2024 3:41 PM EDT [facility] Eosinophils Absolute 0.30 0.00 - 0.50 K/[facility] LAB HEMETOLOGY METHOD 05/29/2024 3:41 PM EDT [facility] Basophils Absolute 0.11 0.00 - 0.20 K/mcL LAB HEMETOLOGY METHOD 05/29/2024 3:41 PM EDT [facility] Immature Granulocytes Absolute 0.08(H) 0.00 - 0.03 K/mcL LAB HEMETOLOGY METHOD 05/29/2024 3:41 PM EDT [facility] Blood Venous blood specimen / Unknown Venipuncture / Unknown 05/29/2024 12:25 PM EDT 05/29/2024 12:25 PM EDT us Van Sparks MD LAB BLOOD ORDERABLES Final Result [facility] [address] [place] [address], * (ABNORMAL) Protein and creatinine with ratio, urine (05/29/2024 12:25 PM EDT) Protein, Urine 56 mg/dL LAB CHEMISTRY METHOD 05/29/2024 7:54 PM EDT [facility] Prot/Creat, Ur 3.73(H) <=0.20 mg/mg creat LAB CHEMISTRY METHOD 05/29/2024 7:54 PM EDT [facility] Creatinine, Urine 15.0 mg/dL LAB CHEMISTRY METHOD 05/29/2024 7:54 PM EDT [facility] Urine Urine specimen obtained by clean catch procedure / Unknown Non-blood Collection / Unknown 05/29/2024 12:25 PM EDT 05/29/2024 12:25 PM EDT us Van Sparks MD LAB URINE ORDERABLES Final Result Performing Organization Address [facility]/ZIP Co de Phone Number [facility] [address] [place] [address], [place] [phone] * (ABNORMAL) Microalbumin creatinine urine ratio (05/29/2024 12:25 PM EDT) Creatinine, Urine 15.0 mg/dL LAB CHEMISTRY METHOD 05/29/2024 8:02 PM EDT [facility] Microalb, Ur 320.0(H) 0.0 - 29.0 mg/L LAB CHEMISTRY METHOD 05/29/2024 8:02 PM EDT [facility] Microalb/Crea t Ratio 2,133(H) <30 mg/g creat LAB CHEMISTRY METHOD 05/29/2024 8:02 PM EDT [facility] Urine Urine specimen obtained by clean catch procedure / Unknown Non-blood Collection / Unknown 05/29/2024 12:25 PM EDT 05/29/2024 12:25 PM EDT Chuckie Naylor MD LAB URINE ORDERABLES F inal Result [facility] [address] [place] [address], [place] [phone] * (ABNORMAL) Vitamin D 25 hydroxy (05/29/2024 12:25 PM EDT) Vit D, 25-Hydroxy 20.8(L) 30.0 - 80.0 ng/mL LAB CHEMISTRY METHOD 05/29/2024 4:45 PM EDT [facility] Blood Venous blood specimen / Unknown Venipuncture / Unknown 05/29/2024 12:25 PM EDT 05/29/2024 12:25 PM EDT us Van Sparks MD LAB BLOOD ORDERABLES Final Result [facility] [address] [place] [address], [place] [phone] * Uric acid (05/29/2024 12:25 PM EDT) [facility] Uric Acid 5.6 3.7 - 9.2 mg/dL LAB CHEMISTRY METHOD 05/29/2024 3:44 PM EDT [facility] Blood Venous blood specimen / Unknown Venipuncture / Unknown 05/29/2024 12:25 PM EDT 05/29/2024 12:25 PM EDT us Van Sparks MD LAB BLOOD ORDERABLES Final Result Performing Organization Address [facility]/ZIP Co de Phone Number [facility] [address] [place] [address], [place] [phone] * Phosphorus (05/29/2024 12:25 PM EDT) [facility] Phosphorus 3.6 2.5 - 4.5 mg/dL LAB CHEMISTRY METHOD 05/29/2024 3:44 PM EDT [facility] Blood Venous blood specimen / Unknown Venipuncture / Unknown 05/29/2024 12:25 PM EDT 05/29/2024 12:25 PM EDT us Van Sparks MD LAB BLOOD ORDERABLES Final Result [facility] [address] [place] [address], [place] [phone] * Parathyroid hormone intact (05/29/2024 12:25 PM EDT) [facility] PTH 26.6 18.5 - 88.0 pcg/mL LAB CHEMISTRY METHOD 05/29/2024 4:45 PM EDT [facility] Blood Venous blood specimen / Unknown Venipuncture / Unknown 05/29/2024 12:25 PM EDT 05/29/2024 12:25 PM EDT us Van Sparks MD LAB BLOOD ORDERABLES Final Result Performing Organization Address City/[facility]/ZIP Co de Phone Number [facility] [address] [place] [address], * Magnesium (05/29/2024 12:25 PM EDT) [facility] Magnesium 2.2 1.9 - 2.6 mg/dL LAB CHEMISTRY METHOD 05/29/2024 3:44 PM EDT [facility] Blood Venous blood specimen / Unknown Venipuncture / Unknown 05/29/2024 12:25 PM EDT 05/29/2024 12:25 PM EDT us Van Sparks MD LAB BLOOD ORDERABLES Final Result [facility] [address] [place] [address], [place] [phone] * (ABNORMAL) Hemoglobin A1c (05/29/2024 12:25 PM EDT) [facility] Hemoglobin A1C 8.8(H) <6.5 % LAB CHEMISTRY METHOD 05/29/2024 9:55 PM EDT [facility] Mean Bld Glu Estim. 206 mg/dL LAB CHEMISTRY METHOD 05/29/2024 9:55 PM EDT [facility] Blood Venous blood specimen / Unknown Venipuncture / Unknown 05/29/2024 12:25 PM EDT 05/29/2024 12:25 PM EDT us Chuckie Naylor MD LAB BLOOD ORDERABLES F inal Result [facility] [address] [place] [address], * (ABNORMAL) Comprehensive metabolic panel (05/29/2024 12:25 PM EDT) Sodium 139 133 - 145 mmol/L LAB CHEMISTRY METHOD 05/29/2024 3:46 PM [facility] Potassium 5.0 3.5 - 5.5 mmol/L LAB CHEMISTRY METHOD 05/29/2024 3:46 PM [facility] Chloride 106 96 - 110 mmol/L LAB CHEMISTRY METHOD 05/29/2024 3:46 PM [facility] CO2 28 21 - 32 mmol/L LAB CHEMISTRY METHOD 05/29/2024 3:46 PM [facility] Anion Gap 5 3 - 11 LAB CHEMISTRY METHOD 05/29/2024 3:46 PM [facility] Glucose 221(H) 70 - 100 mg/dL LAB CHEMISTRY METHOD 05/29/2024 3:46 PM [facility] BUN 18 5 - 25 mg/dL LAB CHEMISTRY METHOD 05/29/2024 3:46 PM [facility] Creatinine 0.72 0.70 - 1.30 mg/dL LAB CHEMISTRY METHOD 05/29/2024 3:46 PM [facility] eGFR 101 >=60 mL/min/1. 73m2 LAB CHEMISTRY METHOD 05/29/2024 3:46 PM [facility] Comment:Calculation based on the??Chronic Kidney Disease Epidemiology Collaboration (CKD-EPI) equation refit??without adjustment for race. BUN/Creatinine Ratio 25.0 LAB CHEMISTRY METHOD 05/29/2024 3:46 PM [facility] Calcium 9.7 8.5 - 10.5 mg/dL LAB CHEMISTRY METHOD 05/29/2024 3:46 PM [facility] AST (SGOT) 17 10 - 42 unit/L LAB CHEMISTRY METHOD 05/29/2024 3:46 PM [facility] ALT (SGPT) 21 10 - 60 unit/L LAB CHEMISTRY METHOD 05/29/2024 3:46 PM [facility] Alkaline Phosphatase 104 42 - 121 unit/L LAB CHEMISTRY METHOD 05/29/2024 3:46 PM [facility] Total Protein 7.3 6.0 - 8.0 g/dL LAB CHEMISTRY METHOD 05/29/2024 3:46 PM [facility] Albumin 3.1(L) 3.2 - 5.0 g/dL LAB CHEMISTRY METHOD 05/29/2024 3:46 PM [facility] Total Bilirubin 0.3 0.0 - 1.4 mg/dL LAB CHEMISTRY METHOD 05/29/2024 3:46 PM [facility] Blood Venous blood specimen / Unknown Venipuncture / Unknown 05/29/2024 12:25 PM EDT 05/29/2024 12:25 PM EDT us Van Sparks MD LAB BLOOD ORDERABLES Final Result [facility] [address] [place] [address], * Depression Screening (05/23/2023) Depression Screening Abstracted Historical Provider HEALTH MAINTENANCE Final Result * Diabetes Foot Exam (05/02/2023) Diabetes: Annual Foot Exam Abstracted Historical Provider HEALTH MAINTENANCE Final Result * Colonoscopy (03/09/2021) Pathologist [facility] Colonoscopy no interpretation , abstracted Anatomical Region Laterality Modality Other Historical Provider HEALTH MAINTENANCE Final Result * Hepatitis C Screening (03/15/2013) Pathologist [facility] Hepatitis C Screening Abstracted Historical Provider HEALTH MAINTENANCE Final Result from Last 3 Months or Most Recently Relevant to Health Maintenance Insurance MEDICARE [place]ICAID - [place] Care Teams Laminator Preforms Relationship Specialty Start Date End Date Chuckie Naylor MD [address] [place] [address] PCP - General Internal Medicine 12/02/21
--- OUTSIDE RECORDS SUMMARY | 2024-06-26 11:20 | XMS_ITS | Clinical Summary ---
Author Organization [facility] Address [address] [address] Phone Care Team Providers Care Extension Course Counselor Name Role Phone Silvino Lowery MD Primary Care Provider [phone] Allergies No known active allergies Medications atorvastatin [...] Active Continuous Glucose Sensor (Dexcom G6 Sensor) [facility] [place] USE DIRECTED 4 Active Aspirin 81 MG [...] Orders Only [facility] [address] [place] [address] Van Sparks MD from Last [...] Office Visit [facility] [address] [address] Van Sparks MD [address] [address] Health Maintenance Due Date Last [...] EDT) WBC 8.2 4.8 - 10.8 K/[facility] RBC 3.90(L) 4.50 - 5.50 M/[facility] Hgb 11.4(L) 13.5 - 17.5 g/dL [facility] Hematocrit 36.6(L) 42.0 - 54.0 % [facility] MCV 93.6 79.0 - 98.0 FL [facility] MCH 29.2 27.0 - 32.0 pcg [facility] MCHC 31.1(L) 32.0 - 37.0 g/dL [facility] RDW 14.0 11.0 - 15.0 % [facility] Platelets 643(H) 130 - 400 K/[facility] MPV 9.5 7.0 - 11.0 [facility] nRBC Count 0.0 <1.0 % [facility] NRBC Absolute 0.00 <0.10 K/[facility] Bands Relative 60.3 % [facility] Lymphocyte Realative Percent 21.7 % [facility] Monocyte Relative Percent 12.0 % [facility] Eosinophil Relative Percent 3.7 % [facility] Basophils Relative Diff 1.3 % [facility] Immature Granulocytes 1.0 % [facility] Neutrophils Absolute 4.95 1.50 - 7.00 K/[facility] Lymphocytes Absolute 1.78 1.00 - 5.00 K/[facility] Monocytes Absolute 0.98 0.20 - 1.00 K/[facility] Eosinophil Absolute 0.30 0.00 - 0.50 K/[facility] Basophil ABS 0.11 0.00 - 0.20 K/[facility] Immature Grans (Absolute) 0.08(H) 0.00 - 0.03 K/[facility] 05/29/2024 12:2 5 PM EDT 05/29/2024 3:24 PM EDT Van Sparks MD LAB BLOOD ORDERABLES Final Re sult Performing Organization Address [facility] Co de Phone Number [facility] [address] [place] [address] * (ABNORMAL) Protein, Total, Random Urine w/Creatinine (Protein/Creat Ratio) (05/29/2024 12:25 PM EDT) Protein, Ur 56 mg/dL [facility] Urine Protein/Creati nine Ratio 3.73(H) <=0.20 mg/mg creat [facility] Creatinine, Urine 15.0 mg/dL [facility] 05/29/2024 12:2 5 PM EDT 05/29/2024 3:21 PM EDT us Van Sparks MD LAB URINE ORDERABLES Final Re sult Performing Organization Address City/[facility]/ZIP Co de Phone Number [facility] [address] [place] [address] * (ABNORMAL) Urinalysis Reflex Microscopic (05/29/2024 12:25 PM EDT) Specific [place] 1.011 1.003 - 1.030 [facility] pH Urine 7.0 5.0 - 8.0 pH [facility] LEUKOCYTES, URINE Negative Negative [facility] Nitrite, Urine Negative Negative [facility] Protein, Urine 100(A) <=Trace mg/dL [facility] Glucose Urine 100(A) Negative mg/dL [facility] Ketones, Urine Negative Negative mg/dL [facility] Urobilinogen Urine 1.0 0.2 - 1.0 mg/dL [facility] Bilirubin Urine Negative Negative [facility] Blood Urine Negative Negative [facility] RBC, Urine 2.2 0 - 4 /HPF [facility] WBC, Urine 0.3 0 - 4 /HPF [facility] Squamous Epithelial, Urine 5 0 - 60 /LPF [facility] Bacteria, Urine Negative Negative /HPF [facility] Hyaline Casts, UA 0.0 0 - 3 /LPF [facility] 05/29/2024 12:2 5 PM EDT 05/29/2024 3:21 PM EDT us Van Sparks MD LAB URINE ORDERABLES Final Re sult [facility] [address] [place] [address] * (ABNORMAL) Vitamin D 25 Hydroxy (05/29/2024 12:25 PM EDT) Vitamin D, 25-OH, Total 20.8(L) 30.0 - 80.0 ng/mL [facility] 05/29/2024 12:2 5 PM EDT 05/29/2024 3:12 PM EDT us Van Sparks MD LAB BLOOD ORDERABLES Final Re sult Performing Organization Address [facility] Co de Phone Number [facility] [address] [place] [address] * Uric Acid (05/29/2024 12:25 PM EDT) Uric Acid 5.6 3.7 - 9.2 mg/dL [facility] 05/29/2024 12:2 5 PM EDT 05/29/2024 3:12 PM EDT us Van Sparks MD LAB BLOOD ORDERABLES Final Re sult Performing Organization Address [facility] de Phone Number [facility] [address] [place] [address] * Phosphorus (05/29/2024 12:25 PM EDT) Phosphorus 3.6 2.5 - 4.5 mg/dL [facility] 05/29/2024 12:2 5 PM EDT 05/29/2024 3:12 PM EDT us Van Sparks MD LAB BLOOD ORDERABLES Final Re sult Performing Organization Address [facility] de Phone Number [facility] [address] [place] [address] * PTH, Intact (05/29/2024 12:25 PM EDT) PTH 26.6 18.5 - 88.0 pcg/mL [facility] 05/29/2024 12:2 5 PM EDT 05/29/2024 3:12 PM EDT us Van Sparks MD LAB BLOOD ORDERABLES Final Re sult Performing Organization Address City/[facility]/ZIP Co de Phone Number [facility] [address] [place] [address] * Magnesium (05/29/2024 12:25 PM EDT) [facility] Magnesium 2.2 1.9 - 2.6 mg/dL [facility] 05/29/2024 12:2 5 PM EDT 05/29/2024 3:12 PM EDT Van Sparks MD LAB BLOOD ORDERABLES Final Re sult Performing Organization Address [facility] Co de Phone Number [facility] [address] [place] [address] * (ABNORMAL) Comprehensive Metabolic Panel (05/29/2024 12:25 PM EDT) [facility] Sodium 139 133 - 145 mmol/L [facility] Potassium 5.0 3.5 - 5.5 mmol/L [facility] Chloride 106 96 - 110 mmol/L [facility] Bicarbonate (CO2) 28 21 - 32 mmol/L [facility] Anion Gap 5 3 - 11 [facility] Glucose 221(H) 70 - 100 mg/dL [facility] BUN 18 5 - 25 mg/dL [facility] Creatinine Serum 0.72 0.70 - 1.30 mg/dL [facility] eGFR 101 >=60 mL/min/1. 73m2 [facility] Comment:Calculation based on the?Chronic Kidney Disease Epidemiology Collaboration (CKD-EPI) equation refit?without adjustment for race. BUN/Creatinine Ratio 25.0 [facility] Calcium 9.7 8.5 - 10.5 mg/dL [facility] AST (SGOT) 17 10 - 42 unit/L [facility] ALT (SGPT) 21 10 - 60 unit/L [facility] Alkaline Phosphatase 104 42 - 121 unit/L [facility] Total Protein 7.3 6.0 - 8.0 g/dL [facility] Albumin 3.1(L) 3.2 - 5.0 g/dL [facility] Total Bilirubin 0.3 0.0 - 1.4 mg/dL [facility] 05/29/2024 12:2 5 PM EDT 05/29/2024 3:12 PM EDT us Van Sparks MD LAB BLOOD ORDERABLES Final Re sult [facility] [address] [place] [address] from Last 3 Months Insurance Medicare Medicaid [place] Care Teams Extension Course Counselor Relationship Specialty Start Date End Date Silvino Lowery MD [address] [place] [id number] PCP - General Internal Medicine 05/31/23
== END 2024-06-26 10:02 | disposition home or self-care (01) ==
LOC: HO.LAB 10:01
PROVIDERS: PCP Internal Medicine; Visit Provider Urology
DX: C67.9 Malignant neoplasm of bladder, unspecified (principal)
CPT/HCPCS: 88121

== ENCOUNTER 2024-12-25 09:54 | Outpatient (REF) | payer MEDICARE, MEDICAID, SELFPAY | END 2024-12-25 09:55 | disposition home or self-care (01) | LOC: HO.LAB 09:54 | PROVIDERS: PCP Internal Medicine; Visit Provider Urology | DX: C67.9 Malignant neoplasm of bladder, unspecified (principal) | CPT/HCPCS: 52000; 88112; 99212 ==

== ENCOUNTER 2024-12-25 09:54 | Outpatient (AMB) | payer MEDICARE, MEDICAID, SELFPAY ==
--- NOTE | 2024-12-25 10:14 | A.OFFVIS_ITS ---
Intake Visit Reasons: cysto Intake Note: patient presents today for cystoscopy allergies:None blood thinner: Aspirin Urology meds : none Shift Superintendent Caustic Cresylate Required: No Accompanied by: Self / Same As Patient Allergies No Known Allergies Allergy (Verified 12/25/24 10:15) HPI Comments Details: Ilir is a pleasant male. He is a patient of Dr. Naylor. He has seen for the following urologic conditions - bladder cancer - erectile dysfunction in setting of diabetes Surveillance cystoscopy q.6 months for 2 years Looks good on cystoscopy Six-month follow-up Bladder cancer - low-grade - 08/07 TaLG initial Low-grade bladder cancer Initial management with TURBT and single-dose mitomycin C TURBT 08/07 - Ta low grade Cystoscopy 03/10 NAD, 07/08 NAD Erectile dysfunction in setting of diabetes Seen at 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 Hypertension Muscular dystrophy Surgical History Hx of cystoscopy Social History Household Members: Spouse Housing: House Do you presently have visiting nurse or other home services: No Alcohol intake: current Alcohol intake frequency: a few times a month Patient Tobacco Use Status: Former Tobacco user service: No Review of Systems Const Denies chills and Denies fever(s) Card Reports no additional complaints and Denies syncope Resp Denies cough GI Denies abdominal pain and Denies heartburn Reports as per HPI and Denies change in libido Neuro Denies syncope Psych Denies change in libido Endo Denies change in libido Physical Exam Const General: cooperative, healthy appearing, comfortable and no acute distress Orientation/consciousness: patient oriented x3 HEENT Face and sinus: Yes normal facial exam Mouth: moist mucous membranes Neck Neck: Yes normal visual inspection, Yes full ROM and Yes trachea midline Chest Chest palpation & inspection: normal inspection of the chest Resp Effort & Inspection: normal respiratory effort, able to speak in complete sentences and no respiratory distress GI Inspection: Yes normal to inspection Back/Spine/Pelvis Cervical Spine: normal cervical lordosis Thoracic/Lumbar Spine: thoracic and lumbar spine normal to inspection Skin General skin exam: no rashes or lesions noted Neuro General: patient oriented x3, gait normal, tone normal and moves all extremities Extrem General: Yes normal to inspection and Yes capillary refill normal Office Procedures Cystoscopy Consent Discussed risk and benefit or proposed procedure with the patient. Information consent for procedure given to the patient. Discussed technical aspects, risks, benefits and alternatives in full. Addressed all of the patient's questions and concerns regarding the procedure. The patient demonstrated knowledge and understanding. They wish to proceed with this procedure. Preparation The patient was prepped in the usual manner. A e business consultant was present and in the room. Genitalia was prepped with betadine solution in a sterile manner. Lidocaine Jelly 2% was placed into the urethra and 16Fr flexible Olympus cystoscope was inserted into the meatus after adequate lubrication. [id number] DISPOSABLE SCOPE URO-G FLEXIBLE SCOPE Procedure code (CPT) selection complete Office Meds lidocaine HCl 2 % mucosal jelly in applicator Performing Provider: Leonel Rg MD Performing Location: [facility] [place] [facility] Administered by: Valorie Saavedra RN on 12/25/24 10:31 Dose Route Admin Location Dispensed Lot Number Expiration Date NDC Full Stack Web Developer 10 mL intra-urethral 10 mL nitrofurantoin monohydrate/macrocrystals 100 mg capsule Performing Provider: Leonel Rg MD Performing Location: [facility] [place] [facility] Administered by: Valorie Saavedra RN on 12/25/24 10:31 Dose Route Admin Location Dispensed Lot Number Expiration Date NDC Full Stack Web Developer 100 mg PO 1 cap Results AMB Urinalysis, Automated UA Leukoctes 0 Lynn/uL Last Edit by MANOHAR Kamara on 12/25/24 10:28 UA Nitrite Negative Last Edit by MANOHAR Kamara on 12/25/24 10:28 UA Urobilinogen 0.2 mg/dL Last Edit by MANOHAR Kamara on 12/25/24 10:28 UA Protein 15 mg/dL Last Edit by MANOHAR Kamara on 12/25/24 10:28 UA pH 6.5 Last Edit by MANOHAR Kamara on 12/25/24 10:28 UA Blood 0 Dc/uL Last Edit by Rhea Elizabeth MANOHAR on 12/25/24 10:28 UA Specific [place] 1.010 Last Edit by MANOHAR Kamara on 12/25/24 10:2 8 UA Ketone Negative Last Edit by Rhea Elizabeth [facility] on 12/25/24 10:28 UA Bilirubin 0 mg/dL Last Edit [facility] on 12/25/24 10:28 UA Glucose 0 mg/dL Last Edit by Rhea Elizabeth [facility] on 12/25/24 10:28 Results Reviewed Results Reviewed: Laboratory Last Values Urine pH (Auto) 6.5 12/25/24 10:28 Specific [place] (Auto) 1.010 12/25/24 10:28 Urine Protein (Auto) 15 mg/dL 12/25/24 10:28 Glucose (UA)(Auto) 0 mg/dL 12/25/24 10:28 Urine Ketones (Auto) Negative 12/25/24 10:28 Urine Blood (Auto) 0 Dc/uL 12/25/24 10:28 Urine Nitrite (Auto) Negative 12/25/24 10:28 Urine Bilirubin (Auto) 0 mg/dL 12/25/24 10:28 Urine Urobilinogen (Auto) 0.2 mg/dL 12/25/24 10:28 Leukocyte Esterase (Auto) 0 Lynn/uL 12/25/24 10:28 Assessment & Plan Assessment & Plan (1) Bladder cancer: Code(s): C67.9 - Malignant neoplasm of bladder, unspecified Category: Medical Plan Six-month follow-up office cystoscopy Orders: Orders Urine Cytology Today C67.9 - Malignant neoplasm of bladder, unspecified AMB Cystoscopy Today C67.9 - Malignant neoplasm of bladder, unspecified Medications: Discontinued sulfamethoxazole-trimethoprim 400-80 mg (Bactrim) Discontinued Reason: Patient Completed Course 1 tab PO DAILY 10 tabs 0RF Patient Instructions: This note is constructed using voice recognition software. While every effort has been made to ensure accuracy head of physics errors may have been included. Imaging studies, laboratory and physical exam results were discussed and reviewed in detail. No major barriers to patient understanding were identified. An opportunity to ask questions regarding the treatment plan was provided. All questions were answered. The patient expressed understanding and agreement with the above treatment plan. The patient is aware they should contact our office by phone for worsening of their current condition or the appearance of new urologic symptoms. Compliance is encouraged with any medications and followup testing that is ordered. It is a privilege to participate in the urologic care of your patient. If you have any questions or concerns regarding treatment for the above conditions, or other urologic issues, please do not hesitate to contact me. The office telephone contact is [phone]. Sincerely, Dr Leonel Rg MD, [facility] - Urology Compassionate Specialist Care for the Genitourinary System Coding Level of Care Code Est Pt Level 3 (65769) Complex EM visit Add On G2211 Diagnoses Bladder cancer C67.9 CPT Codes Cystoscopy - CPT: 31097-[id number] ([id number])
--- OUTSIDE RECORDS SUMMARY | 2024-12-25 11:17 | XMS_ITS | Clinical Summary ---
Author Organization [facility] [address] [place] [address] [place] [phone] Phone Care Team Providers Care Take Out Waiter/Waitress Name Role Phone Chuckie Naylor MD Primary Care Provider Allergies No known active allergies Medications blood-glucose transmitter (DEXCOM G6 TRANSMITTER MISC) Use as directed 024 Active ammonium lactate (AMLACTIN) 12 % cream APPLY THIN LAYER TWICE DAILY TO FEET NEEDED FOR DRY SKIN 024 Active blood-glucose meter,continuous (Dexcom G6 Supervisor Train Operations) misc Use as directed 024 Active latanoprost [...] TIMES DAILY. 400 each 2 025 Active pen needle, diabetic (Insupen Pen [...] 20 units in the evening 45 mL 025 Active losartan (COZAAR) 100 mg tablet Take 1 tablet (100 mg total) by mouth 1 (one) time each day. 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 30 mL 1 025 Active amLODIPine (NORVASC) 10 mg tablet Take 1 tablet (10 mg total) by mouth 1 (one) time each day. 90 tablet 1 025 Active atorvastatin (LIPITOR) 20 mg tablet TAKE 1 TABLET BY MOUTH EVERY DAY 90 tablet 1 025 Active gabapentin (NEURONTIN) 800 mg tabletIndications:T ype 2 diabetes mellitus with diabetic peripheral angiopathy without gangrene (CMS/HCC V24, CMS/HCC V28) TAKE 1 TABLET BY MOUTH FOUR TIMES A DAY 120 tablet 5 025 Active ferrous sulfate 324 mg (65 mg elemental iron) EC tablet Take 1 tablet (324 mg total) by mouth every other day. Do not crush, chew, or split. 45 tablet 025 Active gabapentin (NEURONTIN) 800 mg tabletIndications:T ype 2 diabetes mellitus with diabetic peripheral angiopathy without gangrene ([facility] V24, [facility] V28) TAKE 1 TABLET BY MOUTH FOUR TIMES A DAY 120 tablet 5 025 2024 Discontinued Active Problems Problem Noted Date Diagnosed Date Medical orders for life-sust aining treatment (MOLST) form in chart 08/16/2024 Overview (08/16/2024): MOLST form completed 08/16/2024 Cardiopulmonary resuscitation - do not resuscitate Ventilation for a patient in respiratory distress - do not intubate or ventilate Transfer to hospital -transfer to hospital Dialysis - use dialysis but short term only Artificial nutrition - no artificial nutrition Artificial hydration - use artificial hydration Malignant neoplasm of urinar y bladder ([facility] V24, [facility] V28) 08/29/2023 Other psoriasis 02/05/2022 Diabetic peripheral neuropathy ([facility] V24, [facility] V28) 02/01/2022 Assessment & Plan (06/05/2024 9:18 PM EDT): Diabetic skin ulcer ([facility] V24, [facility] V28) 1 04/04/2021 Overview (01/05/2024): 01/13/2022 Fran Plascencia Podiatry Claudication ([facility] V24) 11/11/2020 Overview (01/05/2024): PVCA Inflammatory arthritis 03/19/2013 Overview (01/05/2024): Onset 2012. Asymmetric RF and CCP Ab negative. Lyme Ab negative Diabetes mellitus with micro albuminuria ([facility] V24, [facility] V28) 12/07/2011 Overview (01/05/2024): CTS. Assessment & Plan (06/05/2024 9:18 PM EDT): DM (diabetes mellitus) with peripheral vascular complication ([facility] V24, [facility] V28) 12/07/2011 Overview (01/05/2024): ED. Assessment & Plan (06/05/2024 9:18 PM EDT): Type 1 diabetes mellitus wit h eye manifestations ([facility] V24, [facility] V28) 12/07/2011 Overview (01/05/2024): Proliferative retinopathy- right. Assessment & Plan (06/05/2024 9:18 PM EDT): HTN (hypertension) 07/29/2011 Assessment & Plan (06/05/2024 9:18 PM EDT): DM (diabetes mellitus), type 1 with renal complications ([facility] V24, [facility] V28) 07/29/2011 DM (diabetes mellitus), type 1 with ophthalmic complications ([facility] V24, [facility] V28) 01/04/2011 Diabetic retinopathy ([facility] V24, [facility] V28) 06/11/2010 Erectile dysfunction 09/08/2009 Carpal tunnel syndrome 08/05/2005 Congenital hereditary muscul ar dystrophy ([facility] V24, [facility] V28) 08/05/2005 Proteinuria 08/05/2005 Traumatic pneumohemothorax 08/05/2005 Overview (01/05/2024): IMO update Encounters Date Type Department Care Team Description 12/17/2024 Telephone Endocrinology - [place] [address] [place] [address] Scarlet Corcoran MD 12/04/2024 3:00 PM EDT Office Visit [facility] Hematology Oncology [address] [place] [phone] Rosalia Burrows PA IgM monoclonal gammopathy of undetermined significance (MGUS) (Primary Dx); Iron deficiency anemia, unspecified iron deficiency anemia type; Thrombocytosis; History of bladder cancer 12/03/2024 11:30 AM EDT Office [place] [facility] [address] [place] [phone] Scarlet Corcoran MD Diabetic peripheral neuropathy ([facility] V24, [facility] V28) (Primary Dx); 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 ([facility] V24, [facility] V28) 11/22/2024 3:30 PM EDT Office Visit [facility] Hematology Oncology [address] [place] [phone] Rosalia Burrows PA Thrombocytosis (Primary Dx); Anemia, unspecified type; Coagulopathy ([facility] V24); Other thrombocytosis; History of bladder cancer 09/25/2024 10:45 AM EDT Office Visit Orthopedic Surgery [facility] [address] [facility] [address] [place] [phone] Jayesh Johnson DPM Diabetic mononeuropathy simplex ([facility] V24, [facility] V28) (Primary Dx); Type II diabetes mellitus with peripheral circulatory disorder ([facility] V24, [facility] V28); Dermatophytosis of nail; Abscess of right foot; Ingrowing nail from Last 3 Months Immunizations Immunization Administration Dates Next Due Pneumococcal polysaccharide 23 [...] tunnel syndrome Congenital hereditary muscul ar dystrophy ([facility] V24, [facility] V28) 08/05/2005 DX:Congenital her editary muscular dystrophy (HCC) HTN (hypertension) 07/29/2011 DX:HTN (hyper tension) History of rectal bleeding DX:Hi story of rectal bleeding Diabetic peripheral neuropat hy ([facility] V24, [facility] V28) 02/01/2022 DX:Diabetic peripheral neur opathy (HCC) Diabetic skin ulcer ([facility] V24, [facility] V28) 02/01/2022 DX:Diabetic skin ulcer (HCC) ; [...] Record ed Within the last 3 months, darrin kenyon many times did you visit the emergency [...] for your loved ones. For example, child support officer or elderly care for an older adult? [...] Date Recorded What is your living situation? Unrecognized valu e 05/31/2024 Sex and Gender Information Value Date Recorded Sex Assigned at Not on file Legal Sex Male 9:39 PM EST Gender Identity Not on file Sexual Orientation Not on file Obstetrics History Last Filed Vital Signs Vital Sign Reading Time Taken Comments Blood Pressure 149/53 12/04/2024 2:57 PM EDT Pulse 68 12/04/2024 2:57 PM EDT Temperature 36.8 C (98.2 F) 12/04/2024 2:57 PM EDT Respiratory Rate 16 12/03/2024 11:37 AM EDT Oxygen Saturation 98% 12/04/2024 2:57 PM EDT Inhaled Oxygen Concentration - - Weight 83.5 kg (184 lb) 12/04/2024 2:57 PM EDT Height 177.8 cm (5' 10 ) 12/03/2024 11:37 AM EDT Body Mass Index 26.4 12/03/2024 11:37 AM EDT Plan of Treatment Upcoming Encounters Date Type Department Care Team (Late st Contact Info) Description 01/15/2025 2:30 PM EST Office Visit Endocrinology [place] [address] [place], [place] [phone] Shira Livingston PA [address] [place] 02/18/2025 1:15 PM EST [facility] [address] [phone] Chuckie Naylor MD [address] [place], [place] 03/04/2025 11:30 AM EST Office Visit [facility] Hematology Oncology [address] [place] [phone] Rosalia Burrows PA [address] [place] [address] Health Maintenance Due Date Last Done Comments Pneumococcal Vaccine: 50+ Years (2 of 2 - PCV) 06/07/2008 06/08/2007 RSV Immunization Adult Patients (1 - Risk 50-74 years 1-dose series) 2008 COVID-19 Vaccine (2 - Sakshi risk series) 10/31/2020 10/03/2020 Depression Screening 02/15/2024 05/23/2023 Influenza Vaccine (#1) 2024 Diabetes: Blood Sugar Control Test (HGBA1C) 03/20/2025 09/17/2024, 05/29/2024, 05/27/2023 Diabetes: Annual Retina Eye Exam 04/25/2025 04/25/2024 Diabetes: Annual Foot Exam 05/31/2025 05/31/2024, Falls Risk Assessment 05/31/2025 05/31/2024, 025 Medicare Annual Wellness Visit 05/31/2025 05/31/2024 Social Influencers of Health Screening 05/31/2025 05/31/2024 Diabetes: Annual Urine Albumin-Creatinine Ratio (uACR) 09/17/2025 09/17/2024, 05/29/2024, 05/27/2023 Diabetes: Annual GFR (Glomerular Filtration Rate) 11/22/2025 11/22/2024, 09/17/2024, 05/29/2024, Additional history exists Hypertension/CHF/CAD Annual BMP Blood Test 11/22/2025 11/22/2024, 09/17/2024, 05/29/2024, Additional history exists Cholesterol Screening (Lipid Panel) 05/29/2029 05/29/2024, 05/27/2023 Colorectal Cancer Screening: Colonoscopy 03/09/2031 03/09/2021 DTaP,Tdap,and Td Vaccines (3 - Td or Tdap) 03/17/2032 03/17/2022, 06/29/2007 Hepatitis C Screening Completed 03/15/2013 Abdominal Aortic [...] Procedure Name Priority Date/Time Associated Diagnosis Comments VA PROTEIN ELECTROPHORETIC FRACTIONATION & QUANTITATION SERUM Routine 11/22/2024 4:14 PM EDT Thrombocytosis Anemia, unspecified type Coagulopathy (CMS/HCC V24) VA IMMUNOFIXATION ELECTROPHORESIS SERUM Routine 11/22/2024 4:14 PM EDT Thrombocytosis Anemia, unspecified type Coagulopathy (CMS/HCC V24) PROTEIN, TOTAL Routine 11/22/2024 4:14 PM EDT Thrombocytosis Anemia, unspecified type Coagulopathy (CMS/HCC V24) IMMUNOGLOBULINS IGG, IGA, IGM Routine 11/22/2024 4:14 PM EDT Thrombocytosis Anemia, unspecified type Coagulopathy (CMS/HCC V24) IMMUNOFIXATION ELECTROPHORESIS Routine 11/22/2024 4:14 PM EDT Thrombocytosis Anemia, unspecified type Coagulopathy (CMS/HCC V24) CBC WITH AUTO DIFFERENTIAL Routine 11/22/2024 4:14 PM EDT Thrombocytosis Anemia, unspecified type Coagulopathy (CMS/HCC V24) PROTHROMBIN TIME WITH INR Routine 11/22/2024 4:14 PM EDT Thrombocytosis Anemia, unspecified type Coagulopathy (CMS/HCC V24) JAK2 GENE, V617F MUTATION, QUANTITATIVE, MOLECULAR STUDY Routine 11/22/2024 4:14 PM EDT Thrombocytosis Anemia, unspecified type Coagulopathy (CMS/HCC V24) Other thrombocytosis ACTIVATED PARTIAL THROMBOPLASTIN TIME Routine 11/22/2024 4:14 PM EDT Thrombocytosis Anemia, unspecified type Coagulopathy (CMS/HCC V24) THYROID STIMULATING HORMONE WITH REFLEX TO FREE T4 AND FREE T3 Routine 11/22/2024 4:14 PM EDT Thrombocytosis Anemia, unspecified type Coagulopathy (CMS/HCC V24) VITAMIN B12 AND FOLATE Routine 4:14 PM EDT Thrombocytosis Anemia, unspecified type Coagulopathy (CMS/HCC V24) RETICULOCYTE COUNT Routine 11/22/2024 4: 14 PM EDT Thrombocytosis Anemia, unspecified type Coagulopathy (CMS/HCC V24) PROTEIN ELECTROPHORESIS, SERUM Routine 11/22/2024 4:14 PM EDT Thrombocytosis Anemia, unspecified type Coagulopathy (CMS/HCC V24) LACTATE DEHYDROGENASE Routine 11/22/2024 4:14 PM EDT Thrombocytosis Anemia, unspecified type Coagulopathy (CMS/HCC V24) KAPPA-LAMBDA QUANTITATIVE FREE LIGHT CHAINS Routine 11/22/2024 4:14 PM EDT Thrombocytosis Anemia, unspecified type Coagulopathy (CMS/HCC V24) IRON AND TIBC Routine 11/22/2024 4:14 PM EDT Thrombocytosis Anemia, unspecified type Coagulopathy (CMS/HCC V24) IMMUNOFIXATION ELECTROPHORESIS Routine 11/22/2024 4:14 PM EDT Thrombocytosis Anemia, unspecified type Coagulopathy (CMS/HCC V24) HAPTOGLOBIN Routine 11/22/2024 4:14 PM EDT Thrombocytosis Anemia, unspecified type Coagulopathy (CMS/HCC V24) FERRITIN Routine 11/22/2024 4:14 PM EDT Thrombocytosis Anemia, unspecified type Coagulopathy (CMS/HCC V24) ERYTHROPOIETIN Routine 11/22/2024 4:14 PM EDT Thrombocytosis Anemia, unspecified type Coagulopathy (CMS/HCC V24) COMPREHENSIVE METABOLIC PANEL Routine 11/22/2024 4:14 PM EDT Thrombocytosis Anemia, unspecified type Coagulopathy (CMS/HCC V24) CBC AND DIFFERENTIAL Routine 11/22/2024 4:14 PM EDT Thrombocytosis Anemia, unspecified type Coagulopathy (CMS/HCC V24) MICROALBUMIN CREATININE URINE RATIO Routine 09/17/2024 10:43 AM EDT 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 (CMS/HCC V24, CMS/HCC V28) HEMOGLOBIN A1C Routine 09/17/2024 10:43 AM EDT 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 (CMS/HCC V24, CMS/HCC V28) US ABDOMEN AORTIC ANEURYSM SCREENING Routine 06/11/2024 8:22 AM EDT Screening for AAA (abdominal aortic aneurysm) LIPID PANEL WITH REFLEX TO DIRECT LDL Routine 05/29/2024 12:25 PM EDT Type 1 diabetes mellitus with nephropathy (CMS/HCC V24, CMS/HCC V28) Diabetes mellitus with microalbuminuria (CMS/HCC V24, CMS/HCC V28) DEPRESSION SCREENING Routine 05/23/2023 DIABETES FOOT EXAM Routine 05/02/2023 COLONOSCOPY Routine 03/09/2021 HEPATITIS C SCREENING Routine 03/15/2013 from Last 3 Months or Most Recently Relevant to Health Maintenance Results * Pathologist Review Immunofixation (11/22/2024 4:14 PM EDT) Pathologist Interpretation Kimberly Freeman MD 11/23/2024 1:46 PM EDT [facility] Blood Venous blood specimen / Unknown Venipuncture / Unknown 11/22/2024 4:14 PM EDT 11/22/2024 4:35 PM EDT us Rosalia BOND LAB BLOOD ORDERABLES Final Re sult [facility] [address] [place] [address], * PATHOLOGIST REVIEW PROTEIN ELECTROPHORESIS (11/22/2024 4:14 PM EDT) Pathologist Interpretation Kimberly Freeman MD 11/23/2024 1:52 PM EDT [facility] Blood Venous blood specimen / Unknown Venipuncture / Unknown 11/22/2024 4:14 PM EDT 11/22/2024 4:35 PM EDT Rosalia BOND LAB BLOOD ORDERABLES Final Re sult [facility] [address] [place] [address], [place] [phone] * Thyroid stimulating hormone with reflex to free t4 and free t3 (11/22/2024 4:14 PM EDT) TSH 1.21 0.40 - 4.00 mcIU/mL LAB CHEMISTRY METHOD 11/22/2024 5:59 PM EDT [facility] Blood Venous blood specimen / Unknown Venipuncture / Unknown 11/22/2024 4:14 PM EDT 11/22/2024 4:35 PM EDT Rosalia BOND LAB BLOOD ORDERABLES Final Re sult Performing Organization Address [facility]/ZIP Co de Phone Number [facility] [address] [place] [address], [place] [phone] * Vitamin B12 and folate (11/22/2024 4:14 PM EDT) Vitamin B-12 745 250 - 900 pcg/mL LAB CHEMISTRY METHOD 11/22/2024 5:49 PM EDT [facility] Folate 11.5 2.8 - 17.0 ng/ml LAB CHEMISTRY METHOD 11/22/2024 5:49 PM EDT [facility] Blood Venous blood specimen / Unknown Venipuncture / Unknown 11/22/2024 4:14 PM EDT 11/22/2024 4:35 PM EDT Rosalia BOND LAB BLOOD ORDERABLES Final Re sult [facility] [address] [place] [address], * (ABNORMAL) Meyer-lambda free light chains, quantitative (11/22/2024 4:14 PM EDT) Pathologist [facility] Meyer Free Light Chain 7.61(H) 0.33 - 1.94 mg/dL 11/26/2024 1:44 PM EDT [facility] Lambda Free Light Chain 1.83 0.57 - 2.63 mg/dL 11/26/2024 1:44 PM EDT [facility] Meyer/Lambda FLC Ratio 4.16(H) 0.26 - 1.65 11/26/2024 1:44 PM EDT [facility] Comment: Test performed at [facility], [address] , [place] [address] Ronit Lucas MD, PhD - Molding Process Technician Blood Venous blood specimen / Unknown Venipuncture / Unknown 11/22/2024 4:14 PM EDT 11/22/2024 4:35 PM EDT Rosalia Burrows [place] LAB BLOOD ORDERABLES Final Re sult [facility] [address] [place] [address] * JAK2 gene, V617F mutation, quantitative, molecular study (11/22/2024 4:14 PM EDT) [facility] JAK2 (V617F) Mutation Not detected Not detected 11/27/2024 9:[address] [facility] WBC Percent with V617F Mutation <0.1 <0.1 % 11/27/2024 9:[address] [facility] Comment: This procedure uses real-time polymerase chain reaction amplification and detection to quantify the percentage of white blood cells containing the V617F (G>T at position 617) point mutation in the autoinhibitory pseudokinase domain of the JAK2 protein. The lower limit of quantitation is 0.1% (1 in 1000 cells). A Not detected result does not preclude the presence of this or another point mutation in this gene. This test uses commercial reagents that have not been approved or cleared by the FDA. The FDA has determined that such clearance or approval is not necessary. The performance characteristics of this procedure were determined by [facility]. This test is performed pursuant to a license agreement with [employer] Test performed at [facility], [address] , [place] [address] Ronit Lucas MD, PhD - Molding Process Technician Blood Venous blood specimen / Unknown Venipuncture / Unknown 11/22/2024 4:14 PM EDT 11/22/2024 4:38 PM EDT Rosalia BOND LAB MOLECULAR DIAGNOSTICS ORD ERABLES Final Result [facility] [address] [place] [address] * (ABNORMAL) CBC auto differential (11/22/2024 4:14 PM EDT) WBC 6.7 4.8 - 10.8 K/mcL LAB HEMETOLOGY METHOD 11/22/2024 4:54 PM EDT [facility] RBC 4.20(L) 4.50 - 5.50 M/mcL LAB HEMETOLOGY METHOD 11/22/2024 4:54 PM EDT [facility] Hemoglobin 12.4(L) 13.5 - 17.5 g/dL LAB HEMETOLOGY METHOD 11/22/2024 4:54 PM EDT [facility] Hematocrit 37.9(L) 42.0 - 54.0 % LAB HEMETOLOGY METHOD 11/22/2024 4:54 PM EDT [facility] MCV 91.1 79.0 - 98.0 FL LAB HEMETOLOGY METHOD 11/22/2024 4:54 PM EDT [facility] MCH 29.8 27.0 - 32.0 pcg LAB HEMETOLOGY METHOD 11/22/2024 4:54 PM EDT [facility] MCHC 32.7 32.0 - 37.0 g/dL LAB HEMETOLOGY METHOD 11/22/2024 4:54 PM EDT [facility] RDW 14.6 11.0 - 15.0 % LAB HEMETOLOGY METHOD 11/22/2024 4:54 PM EDT [facility] Platelets 342 130 - 400 K/mcL LAB HEMETOLOGY METHOD 11/22/2024 4:54 PM EDT [facility] MPV 9.2 7.0 - 11.0 FL LAB HEMETOLOGY METHOD 11/22[facility]24 [facility] NRBC 0.0 <1.0 % LAB HEMETOLOGY METHOD 11/22/2024 4:[address] [facility] NRBC Absolute 0.00 <0.10 K/mcL LAB HEMETOLOGY METHOD 11/22[facility]2024 4:[facility] Neutrophils Relative 53.6 % LAB HEMETOLOGY METHOD 11/22/2024 4:[address] [facility] Lymphocytes Relative 26.7 % LAB HEMETOLOGY METHOD 11/22/2024 4:[address] [facility] Monocytes Relative 14.1 % LAB HEMETOLOGY METHOD 11/22/2024 4:[address] [facility] Eosinophils Relative 4.0 % LAB HEMETOLOGY METHOD 11/22/2024 4:[address] [facility] Basophils Relative 1.5 % LAB HEMETOLOGY METHOD 11/22/2024 4:[facility] Immature Granulocytes Relative 0.1 % LAB HEMETOLOGY METHOD 11/22/2024 4:[facility] Neutrophils Absolute 3.57 1.50 - 7.00 K/mcL LAB HEMETOLOGY METHOD 11/22/2024 4:[facility] Lymphocytes Absolute 1.78 1.00 - 5.00 K/mcL LAB HEMETOLOGY METHOD 11/22/2024 4:54 PM EDT [facility] Monocytes Absolute 0.94 0.20 - 1.00 K/mcL LAB HEMETOLOGY METHOD 11/22/2024 4:54 PM EDT [facility] Eosinophils Absolute 0.27 0.00 - 0.50 K/mcL LAB HEMETOLOGY METHOD 11/22/2024 4:54 PM EDT [facility] Basophils Absolute 0.10 0.00 - 0.20 K/mcL LAB HEMETOLOGY METHOD 11/22/2024 4:54 PM EDT [facility] Immature Granulocytes Absolute 0.01 0.00 - 0.03 K/mcL LAB HEMETOLOGY METHOD 11/22/2024 4:54 PM EDT [facility] Blood Venous blood specimen / Unknown Venipuncture / Unknown 11/22/2024 4:14 PM EDT 11/22/2024 4:38 PM EDT Rosalia BOND LAB BLOOD ORDERABLES Final Re sult [facility] [address] [place] [address], * Erythropoietin (11/22/2024 4:14 PM EDT) Erythropoietin 4.7 2.6 - 18.5 mIU/mL 11/26/2024 10:55 PM EDT [facility] Comment: Test performed at [facility], [address], [place] [address] Ronit Lucas MD, PhD - Molding Process Technician Blood Venous blood specimen / Unknown Venipuncture / Unknown 11/22/2024 4:14 PM EDT 11/22/2024 4:35 PM EDT us Rosalia BOND LAB BLOOD ORDERABLES Final Re sult [facility] [place] [address] * (ABNORMAL) Iron and TIBC (11/22/2024 4:14 PM EDT) Iron 53 50 - 160 mcg/dL LAB CHEMISTRY METHOD 11/22/2024 5:49 PM EDT [facility] TIBC 332 250 - 450 mcg/dL LAB CHEMISTRY METHOD 11/22/2024 5:49 PM EDT [facility] Iron Saturation 16(L) 20 - 50 % LAB CHEMISTRY METHOD 11/22/2024 5:49 PM EDT [facility] Blood Venous blood specimen / Unknown Venipuncture / Unknown 11/22/2024 4:14 PM EDT 11/22/2024 4:35 PM EDT us Rosalia BOND LAB BLOOD ORDERABLES Final Re sult Performing Organization Address City/[facility]/ZIP Co de Phone Number [facility] [address] [place] [address], [place] [phone] * Activated partial thromboplastin time (11/22/2024 4:14 PM EDT) aPTT 37.2 24.1 - 39.3 sec LAB COAGULATION METHOD 11/22/2024 5:00 PM EDT [facility] Blood Venous blood specimen / Unknown Venipuncture / Unknown 11/22/2024 4:14 PM EDT 11/22/2024 4:34 PM EDT Rosalia BOND LAB BLOOD ORDERABLES Final Re sult [facility] [address] [place] [address], [place] [phone] * Prothrombin time with INR (11/22/2024 4:14 PM EDT) Pathologist [facility] Protime 11.2 10.6 - 13.9 sec LAB COAGULATION METHOD 11/22/2024 5:00 PM EDT [facility] INR 0.9 LAB COAGULATION METHOD 11/22/2024 5:00 PM EDT [facility] Blood Venous blood specimen / Unknown Venipuncture / Unknown 11/22/2024 4:14 PM EDT 11/22/2024 4:34 PM EDT Rosalia BOND LAB BLOOD ORDERABLES Final Re sult Performing Organization Address City/[facility] Co de Phone Number [facility] [address] [place] [address], [place] [phone] * Reticulocyte count (11/22/2024 4:14 PM EDT) [facility] Retic Ct Abs 0.040 0.030 - 0.090 M/mcL LAB HEMETOLOGY METHOD 11/22/2024 4:54 PM EDT [facility] Retic Ct Pct 1.0 0.7 - 1.7 % LAB HEMETOLOGY METHOD 11/22/2024 4:54 PM EDT [facility] Immature Retic Fract 12.4 2.3 - 15.9 % LAB HEMETOLOGY METHOD 11/22/2024 4:54 PM EDT [facility] Reticulocyte Hemoglobin 34.3 >29.0 pcg LAB HEMETOLOGY METHOD 11/22/2024 4:54 PM EDT [facility] Blood Venous blood specimen / Unknown Venipuncture / Unknown 11/22/2024 4:14 PM EDT 11/22/2024 4:38 PM EDT Rosalia BOND LAB BLOOD ORDERABLES Final Re sult Performing Organization Address City/[facility]/ZIP Co de Phone Number [facility] [address] [place] [address], [place] [phone] * Immunofixation electrophoresis serum (11/22/2024 4:14 PM EDT) [facility] Immunofixation Result, Serum IgM Meyer monoclonal immunoglobulins detected. LAB CHEMISTRY METHOD 11/23/2024 1:46 PM EDT [facility] Blood Venous blood specimen / Unknown Venipuncture / Unknown 11/22/2024 4:14 PM EDT 11/22/2024 4:35 PM EDT Rosalia BOND LAB BLOOD ORDERABLES Final Re sult Performing Organization Address [facility] Co de Phone Number [facility] [address] [place] [address], [place] [phone] * (ABNORMAL) Immunoglobulins IgG, IgA, IgM (11/22/2024 4:14 PM EDT) [facility] Total IgG 580 549 - 1,584 mg/dL LAB CHEMISTRY METHOD 11/22/2024 5:56 PM EDT [facility] IgA 78 61 - 348 mg/dL LAB CHEMISTRY METHOD 11/22/2024 5:56 PM EDT [facility] IgM 1,180(H) 23 - 259 mg/dL LAB CHEMISTRY METHOD 11/22/2024 5:56 PM EDT [facility] Blood Venous blood specimen / Unknown Venipuncture / Unknown 11/22/2024 4:14 PM EDT 11/22/2024 4:35 PM EDT Rosalia BOND LAB BLOOD ORDERABLES Final Re sult Performing Organization Address [facility]/ZIP Co de Phone Number [facility] [address] [place] [address], [place] [phone] * Protein electrophoresis, serum (11/22/2024 4:14 PM EDT) Total Protein 7.4 6.0 - 8.0 g/dL LAB CHEMISTRY METHOD 11/23/2024 1:52 PM EDT [facility] Albumin, Serum 4.0 2.9 - 4.1 g/dL LAB CHEMISTRY METHOD 11/23/2024 1:52 PM EDT [facility] Alpha 1 Globulin (g/dL) 0.2 0.1 - 0.5 g/dL LAB CHEMISTRY METHOD 11/23/2024 1:52 PM EDT [facility] Alpha 2 Globulin (g/dL) 1.0 0.7 - 1.5 g/dL LAB CHEMISTRY METHOD 11/23/2024 1:52 PM EDT [facility] Beta (g/dL) 0.9 0.7 - 1.5 g/dL LAB CHEMISTRY METHOD 11/23/2024 1:52 PM EDT [facility] Gamma Globulin (g/dL) 1.3 0.7 - 1.9 g/dL LAB CHEMISTRY METHOD 11/23/2024 1:52 PM EDT [facility] PARAPROTEIN 0.5 g/dL LAB CHEMISTRY METHOD 11/23/2024 1:52 PM EDT [facility] SPEP Interpretation Monoclonal gammopathy Abnormal pattern with M-spike of gamma globulin mobility. Serum Immunofixation performed on this specimen demonstrated IgM Meyer monoclonal protein. LAB CHEMISTRY METHOD 11/23/2024 1:52 PM EDT [facility] Blood Venous blood specimen / Unknown Venipuncture / Unknown 11/22/2024 4:14 PM EDT 11/22/2024 4:35 PM EDT us Rosalia BOND LAB BLOOD ORDERABLES Final Re sult [facility] [address] [place] [address], [place] [phone] * Protein, total (11/22/2024 4:14 PM EDT) Total Protein 7.4 6.0 - 8.0 g/dL LAB CHEMISTRY METHOD 11/22/2024 5:19 PM EDT [facility] Blood Venous blood specimen / Unknown Venipuncture / Unknown 11/22/2024 4:14 PM EDT 11/22/2024 4:35 PM EDT Rosalia BOND LAB BLOOD ORDERABLES Final Re sult [facility] [address] [place] [address], [place] [phone] * Lactate dehydrogenase (11/22/2024 4:14 PM EDT) Pathologist [facility] LDH 182 120 - 246 unit/L LAB CHEMISTRY METHOD 11/22/2024 5:19 PM EDT [facility] Blood Venous blood specimen / Unknown Venipuncture / Unknown 11/22/2024 4:14 PM EDT 11/22/2024 4:35 PM EDT Rosalia BOND LAB BLOOD ORDERABLES Final Re sult [facility] [address] [place] [address], [place] [phone] * Haptoglobin (11/22/2024 4:14 PM EDT) Haptoglobin 190 16 - 200 mg/dL LAB CHEMISTRY METHOD 11/22/2024 5:19 PM EDT [facility] Blood Venous blood specimen / Unknown Venipuncture / Unknown 11/22/2024 4:14 PM EDT 11/22/2024 4:35 PM EDT Rosalia BOND LAB BLOOD ORDERABLES Final Re sult Performing Organization Address [facility]/ZIP Co de Phone Number [facility] [address] [place] [address], [place] [phone] * Ferritin (11/22/2024 4:14 PM EDT) Ferritin 35 26 - 388 ng/mL LAB CHEMISTRY METHOD 11/22/2024 5:49 PM EDT [facility] Blood Venous blood specimen / Unknown Venipuncture / Unknown 11/22/2024 4:14 PM EDT 11/22/2024 4:35 PM EDT Rosalia BOND LAB BLOOD ORDERABLES Final Re sult Performing Organization Address [facility]/ZIP Co de Phone Number [facility] [address] [place] [address], [place] [phone] * (ABNORMAL) Comprehensive metabolic panel (11/22/2024 4:14 PM EDT) Pathologist [facility] Sodium 136 133 - 145 mmol/L LAB CHEMISTRY METHOD 11/22/2024 5:49 PM EDT [facility] Potassium 4.6 3.5 - 5.5 mmol/L LAB CHEMISTRY METHOD 11/22/2024 5:49 PM EDT [facility] Chloride 107 96 - 110 mmol/L LAB CHEMISTRY METHOD 11/22/2024 5:49 PM EDT [facility] CO2 23 21 - 32 mmol/L LAB CHEMISTRY METHOD 11/22/2024 5:49 PM EDT [facility] Anion Gap 6 3 - 11 LAB CHEMISTRY METHOD 11/22/2024 5:[address] [facility] Glucose 228(H) 70 - 100 mg/dL LAB CHEMISTRY [facility] BUN 31(H) 5 - 25 mg/dL LAB CHEMISTRY METHOD 11/22/2024 5:[address] [facility] Creatinine 0.65(L) 0.70 - 1.30 mg/dL LAB CHEMISTRY METHOD 11/22/2024 5:[address] [facility] eGFR 104 >=60 mL/min/1. 73m2 LAB CHEMISTRY METHOD 11/22/2024 5:[address] [facility] Comment:Calculation based on the Chronic Kidney Disease Epidemiology Collaboration (CKD-EPI) equation refit without adjustment for race. BUN/Creatinine Ratio 47.7 LAB CHEMISTRY METHOD 11/22/2024 5:[address] [facility] Calcium 9.3 8.5 - 10.5 mg/dL LAB CHEMISTRY METHOD 11/22/2024 5:[address] [facility] AST (SGOT) 17 10 - 42 unit/L LAB CHEMISTRY METHOD 11/22/2024 5:[address] [facility] ALT (SGPT) 29 10 - 60 unit/L LAB CHEMISTRY METHOD 11/22/2024 5:[address] [facility] Alkaline Phosphatase 101 42 - 121 unit/L LAB CHEMISTRY METHOD 11/22/2024 5:[address] [facility] Total Protein 7.3 6.0 - 8.0 g/dL LAB CHEMISTRY METHOD 11/22/2024 5:[address] [facility] Albumin 3.8 3.2 - 5.0 g/dL LAB CHEMISTRY METHOD 11/22/2024 5:[address] [facility] Total Bilirubin 0.4 0.0 - 1.4 mg/dL LAB CHEMISTRY METHOD 11/22/2024 5:[address] [facility] Blood Venous blood specimen / Unknown Venipuncture / Unknown 11/22/2024 4:14 PM EDT 11/22/2024 4:35 PM EDT us Rosalia BOND LAB BLOOD ORDERABLES Final Re sult Performing Organization Address [facility]/ZIP Co de Phone Number [facility] [address] [place] [address], [place] [phone] * (ABNORMAL) Microalbumin creatinine urine ratio (09/17/2024 10:43 AM EDT) Creatinine, Urine 13.0 mg/dL LAB CHEMISTRY METHOD 09/17/2024 1:46 PM EDT [facility] Microalb, Ur 127.0(H) 0.0 - 29.0 mg/L LAB CHEMISTRY METHOD 09/17/2024 1:46 PM EDT [facility] Microalb/Crea t Ratio 977(H) <30 mg/g creat LAB CHEMISTRY METHOD 09/17/2024 1:46 PM EDT [facility] Urine Urine specimen obtained by clean catch procedure / Unknown Non-blood Collection / Unknown 09/17/2024 10:43 AM EDT 09/17/2024 10:43 AM EDT us Jeaneth BOND LAB URINE ORDERABLES Final Resul t Performing Organization Address [facility]/ZIP Co de Phone Number [facility] [address] [place] [address], [place] [phone] * (ABNORMAL) Hemoglobin A1c (09/17/2024 10:43 AM EDT) Hemoglobin A1C 7.4(H) <6.5 % LAB CHEMISTRY METHOD 09/17/2024 2:15 PM EDT [facility] Mean Bld Glu Estim. 166 mg/dL LAB CHEMISTRY METHOD 09/17/2024 2:15 PM EDT [facility] Blood Venous blood specimen / Unknown Venipuncture / Unknown 09/17/2024 10:43 AM EDT 09/17/2024 10:43 AM EDT us Jeaneth BOND LAB BLOOD ORDERABLES Final Resul t [facility] [address] [place] [address], * US Abdomen Aortic Aneurysm Screening (06/11/2024 8:22 AM EDT) Anatomical Region Laterality Modality Abdominal aorta Ultrasound 06/11/2024 9:16 AM EDT Impressions 06/11/2024 9:17 AM EDT No evidence of abdominal aortic aneurysm -------- FINAL REPORT -------- Dictated By: Abril Brian Dictated Date: 06/11/2024 09:16 ET Assigned Physician: Abril Brian Reviewed and Electronically Signed By: Abril Brian Signed Date: 06/11/2024 09:17 ET Workstation ID: [id number] Transcribed By: Self Edit Transcribed Date: 06/11/2024 [...] Signed Date: 06/11/2024 09:17 ET Workstation ID: [id number] Transcribed By: Self Edit Transcribed Date: 06/11/2024 09:16 ET us Chuckie Naylor MD IMG US PROCEDURES Iliana l Result * Lipid panel with reflex to direct LDL (05/29/2024 12:25 PM EDT) Cholesterol 122 0 - 200 mg/dL LAB CHEMISTRY METHOD 05/29/2024 3:46 PM EDT [facility] Triglycerides 104 0 - 150 mg/dL LAB CHEMISTRY METHOD 05/29/2024 3:46 PM EDT [facility] HDL 43 >=40 mg/dL LAB CHEMISTRY METHOD 05/29/2024 3:46 PM EDT [facility] LDL Calculated 58 0 - 100 mg/dL LAB CHEMISTRY METHOD 05/29/2024 3:46 PM EDT [facility] VLDL Cholesterol Oliverio 20.8 mg/dL LAB CHEMISTRY METHOD 05/29/2024 3:46 PM EDT [facility] Non HDL Chol. (LDL+VLDL) 79 <145 mg/dL LAB CHEMISTRY METHOD 05/29/2024 3:46 PM EDT [facility] Chol/HDL Ratio 2.8 0.0 - 4.4 LAB CHEMISTRY METHOD 05/29/2024 3:46 PM EDT [facility] Blood Venous blood specimen / Unknown Venipuncture / Unknown 05/29/2024 12:25 PM EDT 05/29/2024 12:25 PM EDT us Chuckie Naylor MD LAB BLOOD ORDERABLES F inal Result [facility] ([facility]) [facility] [address] [place] [address], [place] [phone] * Depression Screening (05/23/2023) [facility] Depression Screening Abstracted Historical Provider HEALTH MAINTENANCE Final Result * Diabetes Foot Exam (05/02/2023) [facility] Diabetes: Annual Foot Exam Abstracted [facility] Provider HEALTH MAINTENANCE Final Result * Colonoscopy (03/09/2021) [facility] Colonoscopy no interpretation , abstracted Anatomical Region Laterality Modality Other Historical Provider HEALTH MAINTENANCE Final Result * Hepatitis C Screening (03/15/2013) [facility] Hepatitis C Screening Abstracted [facility] Provider HEALTH MAINTENANCE Final Result from Last 3 Months or Most Recently Relevant to Health Maintenance Insurance MEDICARE [place]ICAID - [place] Advance Directives Documents on File Type Date Recorded Patient Finance Admin Expl anation Advance Directives and Living Will 08/16/2024 1:54 PM [facility] 07.10.2024 * No CPR/Do Not Intubate (Latest Code Status on File) Date Activated Date Inactivated Comments 08/16/2024 1:51 PM This code statu s was ascertained in the following way: Code status discussion: discussion with patient To update the patient's code status, place a code status order. Do not modify or discontinue any currently active code status orders. Care Teams Take Out Waiter/Waitress Relationship Specialty Start Date End Date Chuckie Naylor MD [address] [place] [address] PCP - General Internal Medicine 12/02/21
--- OUTSIDE RECORDS SUMMARY | 2024-12-25 11:17 | XMS_ITS | Encounter Summary ---
Author Organization [facility] [place] [address] Care Team Providers Care Trim Machine Adjuster Name Role Phone Chuckie Naylor MD Primary Care Provider Reason for Visit * Reason Onset Date Comments dme problem 12/17/2024 Encounter Details Date Type Department Care Team ([facility] st Contact Info) Description 12/17/2024 Telephone [id number] [place] [address] Scarlet Corcoran MD [address] [place] [id number] Social History Tobacco Use Types Packs/Day Years [...] care for your loved ones. For example, childcare administrator or elderly care for an older adult? [...] on file documented as of this encounter Progress Notes * Graciela Olsen MA - 12/17/2024 3:31 PM EST Faxed * Chelsi Hill - 12/17/2024 1:12 PM EST Endocrine Call Primary endocrine provider: Dr. Scarlet Corcoran MD Is the endocrine provider in the office toady?: yes Who is calling? The patient. If not the patient or parent/guardian please check for authorization to share/verbal release. Why is the person calling? Other question/concern: office notes for patient to get diabetic shoes. Please forward to endocrine pool (p [phone]). Patient saw Dr Corcoran on 12/03/24 and diabetic shoes were prescribed. Office notes were suppose to besent to [facility] in [place] but they have not received anything as of yet. Patient is calling to follow up on this please. documented in this encounter Plan of Treatment Upcoming Encounters Date Type Department Care Team (Late st Contact Info) Description 01/15/2025 2:30 PM EST Office Visit [address] [phone] Shira Livingston PA [address] [place] [address] 02/18/2025 1:15 PM EST Office Visit [facility] [address] [phone] Chuckie Naylor MD [address] [place] [address] 03/04/2025 11:30 AM EST Office Visit [facility] Hematology Oncology [address] [place] [phone] Rosalia Burrows PA [address] [place] [address] documented as of this encounter Visit Diagnoses Not on filedocumented in this encounter Care Teams Trim Machine Adjuster Relationship Specialty Start Date End Date Chuckie Naylor MD [address] [place] [address] PCP - General Internal Medicine 12/02/21 documented as of this encounter
--- OUTSIDE RECORDS SUMMARY | 2024-12-25 11:17 | XMS_ITS | Patient Health Record ---
Author Organization [facility] Address [address] [place] [address] Care Team Providers Care Toe Sewer Name Role Phone Jose Plummer MD Primary Care Provider Unavail able Kesha Resendiz Unavailable [phone] Reason For Referral No Information Medications Medication SIG (Take, Route, Frequency, Duration) Notes Start Date End Date Status Extra Depth Orthopedic Shoes (1 Pair) with Customized Heat Molded Multidensity Innersoles (3 Pair) as directed Dx: NIDDM/Polyneuropathy (E11.42), Hammertoe Foot Deformity (M20.41,M20.42), Preulcerative Skin Lesion(s) (L85.1 05/08/2019 Active Sildenafil Citrate 100 MG 1 tablet as ne eded Orally Once a day; Duration: 30 day(s) Unknown Cozaar 100 MG 1 tablet Orally Once a day; Duration: 30 day(s) Unknown Ammonium Lactate 12 % 1 application Exte rnally Twice a day Active BD Insulin Syringe Ultrafine 30G X 1/2 as directed Unknown amLODIPine Besylate 10 MG 1 tablet Orall y Once a day; Duration: 30 day(s) Active Accu-Chek Guide w/Device as directed Unknown Ciclopirox 0.77% as directed applied topically twice a day; Duration: until resolved 7-14 days Active NovoLIN R 100 UNIT/ML as directed Injection Active Glucagon Emergency 1 MG as directed Injection Unknown NovoLIN N 100 UNIT/ML Subcutaneous Twice daily Active Gabapentin 300 MG [address] ee times daily Active Losartan Potassium 100 MG 1 tablet Orall y Once a day; Duration: 30 day(s) Active Aspir-81 Active Social History Tobacco Use: Social History Observation Description Date Details (start date - stop date) Former Smoker 02/15/1988 - 02/14/1990 Tobacco Use/Smoking Question Answer Notes Are you a: former smoker When did you start smoking? 02/15/1988 When did you stop smoking? 02/14/1990 Additional Findings: Tobacco Non-User Current no n-smoker Alcohol Screen Question Answer Notes Did you have a drink containing alcohol in the p ast year? Yes Points 0 Interpretation Negative Tobacco use other than smoking: Question Answer Notes Are you an other tobacco user? No Problems Problem Type SNOMED Code ICD Code Onset Dates Problem Status W/U Status Risk Notes Problem Polyneuropathy due to type 2 diabetes mellitus (167539400) Type 2 diabetes mellitus with diabetic polyneuropathy (E11.42) Active confirmed Problem Bilateral atherosclerosis of arteries of lower limbs (disorder) ([id number] ) Atherosclerosis of artery of both lower extremities (I70.203) Active confirmed Plan Of Treatment Pending Test Test Name Order Date X ray : Foot, left 3V 05/08/2019 Insurance Providers Payer Name Payer Address Payer Phone Subscriber Number Group Number Insured Name Patient Relationship to Insured Coverage Start Date Coverage End Date [employer] [address] [place] [phone] [id number] Ilir Vaughn Self - patient is the insured Medical (General) History Medical History History ICD Code 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
--- OUTSIDE RECORDS SUMMARY | 2024-12-25 11:17 | XMS_ITS | Clinical Summary ---
Author Organization [facility] Address [address] [address] Phone Care Team Providers Care Lighting Engineer Name Role Phone Chuckie Naylor MD Primary Care Provider Allergies Active Allergy Reactions Criticality Noted Date Comments Losartan 07/03/2020 Hyperkalemia? Medications amLODIPine (NORVASC) 10 MG tablet Take 10 mg by mouth daily. 0 Active gabapentin (NEURONTIN) 600 MG tablet Take 600 mg by mouth 3 (three) times a day as needed. 0 Active glucagon, human recombinant, (GLUCAGON) 1 mg injection Inject 1 mg into the muscle. 0 Active insulin NPH (HUMULIN N NPH INSULIN KWIKPEN) 100 unit/mL (3 mL) InPn injection pen Inject 20 Units under the skin 2 (two) times a day. 0 Active insulin regular (HUMULIN-R,JADEN MYRON-R) 100 unit/mL injection Inject 100 MG FE as directed 2 (two) times a day. 0 Active ketoconazole 2 % cream Apply 2 application topically daily. 1 Active losartan (COZAAR) 50 MG tablet Take 100 mg by mouth daily. 0 Active sildenafiL (VIAGRA) 100 mg tablet 100 mg daily as needed. 0 Active aspirin 81 MG EC tablet Take 81 mg by mouth. 0 Active gabapentin (NEURONTIN) 800 MG tablet Take 800 mg by mouth 4 (four) times a day. Active atorvastatin (LIPITOR) 20 MG tablet Take 20 mg by mouth daily. 1 Active latanoprost (XALATAN) 0.005 % ophthalmic solution INSTILL 1 DROP INTO BOTH EYES NIGHTLY 2 Active timolol (TIMOPTIC) 0.5 % ophthalmic solution INSTILL 1 DROP IN LEFT EYE IN THE MORNING 2 Active insulin regular (HUMULIN-R,JADEN MYRON-R) 100 unit/mL injection Inject under the skin 3 (three) times a day before meals. Active DULoxetine (CYMBALTA) 60 MG capsule Take 60 mg by mouth daily. 2 Active blood-glucose meter,continuou s (DEXCOM G4 [address] [employer]ICE) Misc by Miscellaneous route as needed. Active collagenase (SANTYL) ointmentIndicat ions:Skin ulcer of left ankle with fat layer exposed Apply topically daily. Cover with adhesive bandage. 30 g 3 2 Active DEXCOM G6 SENSOR Lizzie CHANGE SENSORS EVERY 10 DAYS 2 Active DEXCOM G6 TRANSMITTER Lizzie as directed. 2 Active dorzolamide-palmer oloL (COSOPT) 22.3-6.8 mg/mL ophthalmic solution 1 drop 2 (two) times a day. 2 Active LANTUS SOLOSTAR U-100 INSULIN 100 unit/mL (3 mL) InPn injection pen INJECT 20 UNITS IN THE MORNING AND 10 UNITS AT NIGHT 2 Active insulin glargine 100 unit/mL (3 mL) InPn injection pen Inject 20-25 Units under the skin. 2 Active insulin lispro (ADMELOG, HUMALOG) 100 unit/mL injection pen INJECT 10 UNITS INTO THE SKIN 3 TIMES DAILY (BEFORE MEALS). 2 Active clopidogrel (PLAVIX) 75 mg tablet Take 75 mg by mouth daily. Active Active Problems Problem Noted Date Diagnosed Date Skin ulcer of left ankle with fat layer exposed 12/01/2021 Uncontrolled type I diabetes mellitus with neuro julio 04/03/2020 Type 1 diabetes mellitus wit h other circulatory complications 04/03/2020 Social History Tobacco Use Types Packs/Day Years Used Date Smoking Tobacco: Never Smokeless Tobacco: Never Alcohol Use Standard Drinks/Week Comments Not Currently 0 (1 standard drink = 0.6 oz pur e alcohol) Education Answer Date Recorded Are you interested in more education? Not on ning e 06/10/2022 Are you concerned about learning? Not on file 06/10/2022 No 06/10/2022 No 06/10/2022 Digital Access Answer Date Recorded No 07/07/2022 No 07/07/2022 Reliable internet access at home? Not on file 07/07/2022 Device with a working camera? Not on file Sex and Gender Information Value Date Recorded Sex Assigned at Male 10/26/2021 1:20 PM EDT Legal Sex Male 3:26 PM EST Gender Identity Male 10/26/2021 1:20 PM EDT Sexual Orientation Straight 10/26/2021 1: 20 PM EDT Last Filed Vital Signs Vital Sign Reading Time Taken Comments Blood Pressure 156/77 10/01/2020 8:15 AM EDT Pulse 76 10/01/2020 8:15 AM EDT Temperature - - Respiratory Rate - - Oxygen Saturation - - Inhaled Oxygen Concentration - - Weight 79.4 kg (175 lb) 10/15/2022 7:58 AM EDT Height 175.3 cm (5' 9 ) 10/15/2022 7:58 AM EDT Body Mass Index 25.84 10/15/2022 7:58 AM EDT Plan of Treatment Health Maintenance Due Date Last Done Comments BLOOD PRESSURE 1958 CREATININE LEVEL 1958 POTASSIUM LEVEL 1958 DEPRESSION SCREENING 1970 HEPATITIS C SCREENING 1976 COLOGUARD 10/08/2003 COLONOSCOPY 10/08/2003 COLORECTAL CANCER SCREENING 10/08/2003 FIT TEST 10/08/2003 FOBT 10/08/2003 SIGMOIDOSCOPY 10/08/2003 VIRTUAL COLONOSCOPY 10/08/2003 PNEUMOCOCCAL VACCINES (50+ years) (2 of 2 - PCV) 06/07/2008 06/08/2007 RSV VACCINE (1 - Risk 50-74 years 1-dose series) 2008 ZOSTER VACCINES (1 of 2) 2008 DIABETIC EYE EXAM 04/03/2020 HEMOGLOBIN A1C 04/06/2023 10/04/2022, 05/1 03/2022, 03/16/2022, Additional history exists INFLUENZA VACCINE (#1) 2024 COVID-19 VACCINE (2024- season) 2024 10/03/2020 Adult Td,Tdap Booster 03/17/2032 03/17/2022, 008 SMOKING STATUS SCREENING (Once After 26 Yrs) Completed 10/15/2022 HEPATITIS A VACCINES Aged Out No long er eligible based on patient's age to complete this topic HIB VACCINES Aged Out No longer eligi ble based on patient's age to complete this topic IPV VACCINES Aged Out No longer eligi ble based on patient's age to complete this topic MENINGOCOCCAL VACCINES (ACWY) Aged Out No longer eligible based on patient's age to complete this topic MENINGOCOCCAL VACCINES (B) Aged Out N o longer eligible based on patient's age to complete this topic Medical Devices Not on file Insurance [address] [place], [place] [address] [address] [place], [place] [address] [facility] Care Teams Lighting Engineer Relationship Specialty Start Date End Date Chuckie Naylor MD [address] [place] [id number] PCP - General 05/20/22 Silvino Lowery [address] [place] [id number] Primary Care Physician 02/14/19 Additional Source Comments The information contained in this document represents components of the legal health record. It is not the complete legal health record.[facility]
--- OUTSIDE RECORDS SUMMARY | 2024-12-25 11:17 | XMS_ITS | Encounter Summary ---
Author Organization [facility] Address [address] [place] [phone] Phone Care Team Providers Care Sales Promotion Director Name Role Phone Chuckie Naylor MD Primary Care Provider Reason for Visit * Reason Comments Medication Refill Encounter Details Date Type Department Care Team ([facility] st Contact Info) Description 03/02/2023 Refill [facility] [address] [place] [phone] Shelby Frank DPM [address] [place] [address] [email or web address] Medication Refill Social History Tobacco Use Types Packs/Day Years [...] Orientation Straight 10/26/2021 1: 20 PM EDT documented as of this encounter Plan of Treatment Not on file documented as of this encounter Visit Diagnoses Diagnosis Type 1 diabetes mellitus with other circulatory complications documented in this encounter Care Teams Sales Promotion Director Relationship Specialty Start Date End Date Chuckie Naylor MD [address] [place] [phone] PCP - General 05/20/22 Silvino Lowery [address] [place] [id number] Primary Care Physician 02/14/19 documented as of this encounter Additional Source Comments The information contained in this document represents components of the legal health record. It is not the complete legal health record.[facility]
== END 2024-12-25 10:48 | disposition home or self-care (01) ==
LOC: HO.HUSH 09:55
PROVIDERS: PCP Internal Medicine; Visit Provider Urology
DX: C67.9 Malignant neoplasm of bladder, unspecified (principal)
CPT/HCPCS: 52000; 99213